=== PATIENT | male | born 1965 | race Caucasian/White ===

== ENCOUNTER 2017-03-02 08:33 | Emergency (ER) | payer MEDICAID, OTHER ==
[~2017-03-02] VITALS: Ht 188 cm; Wt 99.8 kg
--- NOTE | 2017-03-02 09:43 | ED.ADGEN ---
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 Patient states he's been experiencing pain in his upper back, which she describes as a squeezing twisting sensation, he states that at times will radiate into his arms and up into his neck on the right side, he states he's been having "dry heaves" sometimes with this pain, and also feels some shortness of breath with the pain is intense. He states that she been essentially constant for the past 5-6 days. 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 He denies any fall, or direct injury to his back. He states he's also been having cramping sensations in his hands and his legs. He denies any drugs or alcohol, any recent travel or surgery, states he used ibuprofen for pain without relief, last use ibuprofen last night. Denies any focal weakness, states he sometimes feels as though he has some numbness and tingling in his upper arms, but none presently. No changes in bowel or bladder control, no vision changes, no headache, no central neck pain. No pain in his lower back, no abdominal pain, no chest pain. No vomiting or diarrhea, no pain with urination hematuria or other complaints. Denies similar symptoms previously. Review of Systems Review of Systems Constitutional: Denies fever or chills. [] Eyes: Denies change in visual acuity. [] HENT: Denies nasal congestion or sore throat. [] Respiratory: Denies cough or shortness of breath. [] Cardiovascular: Denies chest pain or edema. [] GI: Denies abdominal pain, nausea, vomiting, bloody stools or diarrhea. [] : Denies dysuria. [] Musculoskeletal: Mid thoracic back pain, radiating up into the right neck and shoulder. Cramps in his arms and legs. Integument: Denies rash. [] Neurologic: Denies headache, focal weakness or sensory changes. [] Endocrine: Denies polyuria or polydipsia. [] Lymphatic: Denies swollen glands. [] Psychiatric: Denies depression or anxiety. [] Current Medications Current Medications Current Medications Medications (Trade) Dose Ordered Sig/Diann Start Time Stop Time Status Last Admin Dose Admin Diazepam (Valium) 5 mg 1X ONCE 03/02/17 09:45 03/02/17 09:46 DC 03/02/17 10:44 5 MG Naproxen (Naprosyn) 250 mg 1X ONCE 03/02/17 09:45 03/02/17 09:46 DC 03/02/17 10:43 250 MG Allergies Allergies Allergies Coded Allergies Type Severity Reaction Last Updated Verified loratadine Allergy Severe Shortness of Air 10/08/13 Yes Physical Exam Physical Exam Constitutional: Well developed, well nourished, no acute distress, non-toxic appearance. [] HENT: Normocephalic, atraumatic, bilateral external ears normal, oropharynx moist, no oral exudates, nose normal. [] Eyes: PERRLA, EOMI, conjunctiva normal, no discharge. [] Neck: Normal range of motion, no tenderness, supple, no stridor. [] Cardiovascular:Heart rate regular rhythm, no murmur, S1, S2, rubs or gallops. Patient with a chest wall crepitus or tenderness. Patient with palpable tenderness palpation in the left paraspinal thoracic region, no midline tenderness or deformities, patient describes pain as radiating up also located in the right trapezius region extending into the paraspinal muscles of the neck , but is no midline tenderness there either. Specimens or deformities. [] Lungs & Thorax: Bilateral breath sounds clear to auscultation , no wheezing, rhonchi, rales. No chest wall crepitus. [] Abdomen: Bowel sounds normal, soft, no tenderness, no masses, no pulsatile masses. [] Skin: Warm, dry, no erythema, no rash. [] Back: No midline tenderness, no step-offs or deformities, left-sided thoracic paraspinal tenderness palpation as stated, no CVA tenderness. [] Extremities: No tenderness, no cyanosis, no clubbing, ROM intact, no edema. [] Neurologic: Alert and oriented X 3, normal motor function, normal sensory function, no focal deficits noted. [Patient with normal strength, and sensation in his upper and lower extremities. States he has expressed paresthesias but is expressing not currently.] Psychologic: Affect normal, judgement normal, mood normal. [] Current Patient Data Vital Signs Vital Signs Date Time Temp Pulse Resp B/P Pulse Ox O2 Delivery O2 Flow Rate FiO2 03/02/17 11:10 70 14 126/77 95 Room Air 03/02/17 09:17 97.5 97.5 Lab Values Laboratory Tests Test 03/02/17 09:45 White Blood Count 6.7x10^3/uL (4.0-11.0) Red Blood Count 5.56x10^6/uL (4.30-5.70) Hemoglobin 17.0g/dL (13.0-17.5) Hematocrit 49.8% (39.0-53.0) Mean Corpuscular Volume 90fL (79-100) Mean Corpuscular Hemoglobin 31pg (25-35) Mean Corpuscular Hemoglobin Concent 34g/dL (31-37) Red Cell Distribution Width 16.1% (11.5-14.5) H Platelet Count 185x10^3/uL (140-400) Neutrophils (%) (Auto) 68% (31-73) Lymphocytes (%) (Auto) 17% (24-48) L Monocytes (%) (Auto) 13% (0-9) H Eosinophils (%) (Auto) 1% (0-3) Basophils (%) (Auto) 1% (0-3) Neutrophils # (Auto) 4.5x10^3uL (1.8-7.7) Lymphocytes # (Auto) 1.1x10^3/uL (1.0-4.8) Monocytes # (Auto) 0.9x10^3/uL (0.0-1.1) Eosinophils # (Auto) 0.1x10^3/uL (0.0-0.7) Basophils # (Auto) 0.0x10^3/uL (0.0-0.2) Sodium Level 139mmol/L (136-145) Potassium Level 4.2mmol/L (3.5-5.1) Chloride Level 101mmol/L (98-107) Carbon Dioxide Level 29mmol/L (21-32) Anion Gap 9 (6-14) Blood Urea Nitrogen 12mg/dL (8-26) Creatinine 1.0mg/dL (0.7-1.3) Estimated GFR (Cockcroft-Gault) 79.4 Glucose Level 98mg/dL (70-99) Calcium Level 9.1mg/dL (8.5-10.1) Magnesium Level 2.3mg/dL (1.8-2.4) Troponin I Quantitative < 0.017ng/mL (0.000-0.055) Laboratory Tests 03/02/17 09:45 Laboratory Tests 03/02/17 09:45 EKG EKG EC: Sinus rhythm, heart rate 70 beats/minute, left axis deviation noted, QTc of 413, MO 1:30, QRS of 80, no ST elevations or depressions, abnormal ECG, does not meet STEMI criteria. As interpreted by me. Radiology/Procedures Radiology/Procedures [] [place] [id number] IMAGING REPORT Signed PATIENT: INGRID PEGUERO ACCOUNT: [id number] : 1965 LOCATION: ER AGE: 51 SEX: M EXAM STATUS: REG ER ORD. PHYSICIAN: NAN OCHOA DO REASON: back pain/SOB PROCEDURE: PORTABLE CHEST 1V Exam: AP portable chest. History: Back pain, shortness of breath. Comparison: 04/20/2014. Findings: The heart and mediastinal structures are within normal limits for size. Lungs are without infiltrate. No pneumothorax or pleural effusion is appreciated. Impression: 1. No acute cardiopulmonary process. DICTATED and SIGNED BY: TISHA BENNETT MD DATE: 03/02/171125 CC: NAN OCHOA DO; NO PCP ~ Impressions: [address] [id number] IMAGING REPORT Signed PATIENT: INGRID PEGUERO ACCOUNT: [id number] : 1965 LOCATION: ER AGE: 51 SEX: M EXAM STATUS: REG ER ORD. PHYSICIAN: NAN OCHOA DO REASON: back pain/SOB PROCEDURE: THORACIC SPINE 3V Thoracic spine, 3 views, 03/02/2017: History: Back pain No fracture or destructive bony lesion is identified. There are moderate scattered marginal spurs. The paraspinous soft tissues are unremarkable. IMPRESSION: 1. Moderate marginal spurring. 2. No acute thoracic spine abnormality is detected. DICTATED and SIGNED BY: VIDA HAYDEN MD DATE: 03/02/17 1121 CC: NAN OCHOA DO; NO PCP ~ Course & Med Decision Making Course & Med Decision Making Pertinent Labs and Imaging studies reviewed. (See chart for details) Patient received Valium in the emergency department, and naproxen, as pain and examination most consistent with musculoskeletal etiology. Due to his multiple complaints, laboratory studies and imaging were performed. Laboratory studies and imaging does not reveal any evidence acutely concerning findings. On reevaluation, patient states his pain is now down to a 4 out of 10, and he is able to move his arms which were comfortably. He still does have some pain, but denies any paresthesias or other concerning symptoms. I did discuss with patient concerning symptoms that prompt return, importance of follow-up with a primary care provider, for general medical care, and also follow-up with Dr. Toney of neurosurgery if he continues to have these type of back symptoms. We did discuss also concerning symptoms that would prompt return to the ED for additional evaluation. Patient discharged with prescription for naproxen, Flexeril, clear and detailed return and follow-up instructions as stated. Patient ambulating without difficulty upon exiting the emergency department with family. Dragon Disclaimer Dragon Disclaimer This electronic medical record was generated, in whole or in part, using a voice recognition dictation system. Departure Impression: Primary Impression: Back pain Disposition: HOME, SELF-CARE Condition: IMPROVED Scripts Naproxen 250 Mg [id number] Mg PO BID PRN PAIN #10 Prov:NAN OCHOA DO 03/02/17 Cyclobenzaprine Hcl 10 Mg [id number] Mg PO TID PRN PAIN #12 TAB Prov:NAN OCHOA DO 03/02/17 NAN OCHOA DO Mar 02, 2017 09:43
[2017-03-02] MEDS ORDERED: NAPROXEN 250 MG TABLET PO ONE (09:45)
[2017-03-02] MEDS ORDERED: DIAZEPAM 10 MG/2 ML DISP.SYRIN. IV ONE (09:45)
--- NOTE | 2017-03-02 10:10 | EKG ---
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
[2017-03-02 10:17] LABS: BASO % 1 % (0-3); EOS % 1 % (0-3); HEMATOCRIT 49.8 % (39.0-53.0); LYMPH # 1.1 x10^3/uL (1.0-4.8); LYMPH % 17 % (24-48); MEAN CORPUSCULAR HEMOGLOBIN 31 pg (25-35); MEAN CORPUSCULAR HGB CONC 34 g/dL (31-37); MEAN CORPUSCULAR VOLUME 90 fL (79-100); MONO % 13 % (0-9); NEUT % 68 % (31-73); PLATELET COUNT 185 x10^3/uL (140-400); RED BLOOD COUNT 5.56 x10^6/uL (4.30-5.70); RED CELL DISTRIBUTION WIDTH 16.1 % (11.5-14.5); WHITE BLOOD COUNT 6.7 x10^3/uL (4.0-11.0)
[2017-03-02 10:21] LABS: CALCIUM 9.1 mg/dL (8.5-10.1); GFR 79.4; MAGNESIUM 2.3 mg/dL (1.8-2.4); POTASSIUM 4.2 mmol/L (3.5-5.1)
--- NOTE | 2017-03-02 10:40 | ACF ---
Admit Criteria Forms Admit Criteria Forms Admit Criteria Forms BACK PAIN Clinical Indications for Admission to Inpatient Care (Place 'X' for any and all applicable criteria): Admission is indicated for ANY ONE of the following (1)(2)(3)(4)(5)(6): [X]I. Inpatient admission required rather than observation care (Also use Back Pain: Observation Care as appropriate) because of ANY ONE of the following [ ]a) Severe pain requiring acute inpatient management [ ]b) Immediate inpatient surgery [X]c) Other condition, treatment or monitoring requiring inpatient admission [ ]II. Spine fracture with significant damage or threat of damage to vertebral column or spinal cord [ ]III. Progressive or severe neurologic deficit [ ]IV. Suspected spinal infection (e.g., epidural abscess, vertebral osteomyelitis)(10) [ ]V. Suspected cause requires inpatient treatment (eg, aortic dissection) [ ]. Cauda equina syndrome as indicated by ANY ONE of the following (9): [ ]a) Bowel dysfunction [ ]b) Bladder dysfunction [ ]c) Saddle anesthesia [ ]d) Neurologic abnormality suggesting cauda equina impingement Extended stay beyond goal length of stay may be needed for (3)(25): [ ]a) Spinal cord compression from stenosis, disk, or tumor (8)(9) [ ]b) Traumatic or pathologic vertebral fracture (33) [ ]c) Vertebral infection(10) [ ]d) Severe pain that is difficult to control [ ]e) Older patients(65 years or older) The original [employer] content created by [employer] has been revised. The portions of the content which have been revised are identified through the use of italic text or in bold, and [facility] has neither reviewed nor approved the modified material. All other unmodified content is copyright [employer]. Please see references footnoted in the original [employer] edition 2016 ELDON MORALES Mar 02, 2017 10:40
[2017-03-02 11:10] VITALS: BP 126/77
--- NOTE | 2017-03-02 11:26 | RAD ---
Thoracic spine, 3 views, 03/02/2017: History: Back pain No fracture or destructive bony lesion is identified. There are moderate scattered marginal spurs. The paraspinous soft tissues are unremarkable. IMPRESSION: 1. Moderate marginal spurring. 2. No acute thoracic spine abnormality is detected.
--- NOTE | 2017-03-02 11:29 | RAD ---
Exam: AP portable chest. History: Back pain, shortness of breath. Comparison: 04/20/2014. Findings: The heart and mediastinal structures are within normal limits for size. Lungs are without infiltrate. No pneumothorax or pleural effusion is appreciated. Impression: 1. No acute cardiopulmonary process.
[2017-03-02] MEDS ORDERED: CYCL10TA2 PO (11:53)
[2017-03-02] MEDS ORDERED: NAPR250T2 PO (11:53)
== END 2017-03-02 12:00 | disposition home or self-care (01) ==
LOC: ER 08:33
DX: M54.6 Pain in thoracic spine (principal); M54.2 Cervicalgia; M25.511 Pain in right shoulder; J45.909 Unspecified asthma, uncomplicated; M19.90 Unspecified osteoarthritis, unspecified site; F12.10 Cannabis abuse, uncomplicated; F17.210 Nicotine dependence, cigarettes, uncomplicated; Z88.8 Allergy status to other drugs, medicaments and biological substances
CPT/HCPCS: 36415; 71010; 72072; 80048; 83735; 84484; 85027; 93005; 96374; 99285; J3360

== ENCOUNTER 2018-08-31 20:26 | Emergency (ER) | payer SELFPAY ==
[~2018-08-31] VITALS: Ht 188 cm; Wt 83.9 kg
[~2018-08-31 20:26] MED LIST: CYCL10TA2 PO; NAPR250T6 PO
--- NOTE | 2018-08-31 21:04 | PHYS DOC ---
Past Medical History Past Medical History: Arthritis, Bronchitis Past Surgical History: Other Additional Past Surgical Histo: LEFT EARDRUM Alcohol Use: Sober Drug Use: Marijuana Adult General Chief Complaint Chief Complaint: ANXIETY/PANIC ATTACK HPI HPI 53-year-old male presents for evaluation of depression, anxiety, and suicidal ideation. Patient reports he has struggled with these symptoms since around head. He states months ago when he was living in [facility], he was inpatient for a couple weeks at a facility, they placed him on several psychiatric medications that seemed to help. He states he is recently relocated to [place] and has no follow-up. He has been out of his psychiatric medications for the last 2 weeks at least. He had a prescription for hydroxyzine and Wellbutrin and states there was another but he is unsure what it is. He reports he is feeling suicidal tonight, has a plan and would hang himself. States he has had suicide attempts in the past. Review of Systems Review of Systems Constitutional: Denies fever or chills [] Eyes: Denies change in visual acuity, redness, or eye pain [] HENT: Denies nasal congestion or sore throat [] Respiratory: Denies cough or shortness of breath [] Cardiovascular: No additional information not addressed in HPI [] GI: Denies abdominal pain, nausea, vomiting, bloody stools or diarrhea [] : Denies dysuria or hematuria [] Musculoskeletal: Denies back pain or joint pain [] Integument: Denies rash or skin lesions [] N All other systems were reviewed and found to be within normal limits, except as documented in this note. Current Medications Current Medications Current Medications Medications (Trade) Dose Ordered Sig/Diann Start Time Stop Time Status Last Admin Dose Admin Ibuprofen (Motrin) 600 mg 1X ONCE 08/31/18 22:45 08/31/18 22:46 DC 08/31/18 22:59 600 MG Lorazepam (Ativan) 1 mg 1X ONCE 08/31/18 21:15 08/31/18 21:16 DC 08/31/18 21:15 1 MG Nicotine (Nicoderm Cq 21mg) 1 patch PRN DAILY PRN 08/31/18 21:30 08/31/18 21:39 1 PATCH Allergies Allergies Allergies Coded Allergies Type Severity Reaction Last Updated Verified loratadine Allergy Severe Shortness of Air 10/08/13 Yes Physical Exam Physical Exam Constitutional: Well developed, well nourished, non-toxic appearance. [] HENT: Normocephalic, atraumatic, bilateral external ears normal, oropharynx moist, no oral exudates, nose normal. [] Eyes: PERRLA, EOMI, conjunctiva normal, no discharge. [] Neck: Normal range of motion, no tenderness, supple, no stridor. [] Cardiovascular:Heart rate regular rhythm, no murmur [] Lungs & Thorax: Bilateral breath sounds clear to auscultation [] Skin: Warm, dry, no erythema, no rash. [] Neurologic: Alert and oriented X 3, normal motor function, normal sensory function, no focal deficits noted. [] Psychologic:ANXIOUS, DEPRESSED, SUICIDAL Current Patient Data Vital Signs Vital Signs Date Time Temp Pulse Resp B/P (MAP) Pulse Ox O2 Delivery O2 Flow Rate FiO2 09/01/18 01:18 82 14 114/81 (92) 98 Room Air 08/31/18 20:41 98.8 98.8 Lab Values Laboratory Tests Test 08/31/18 21:25 08/31/18 22:25 White Blood Count 9.4 x10^3/uL (4.0-11.0) Red Blood Count 5.55 x10^6/uL (4.30-5.70) Hemoglobin 17.7 g/dL (13.0-17.5) H Hematocrit 50.5 % (39.0-53.0) Mean Corpuscular Volume 91 fL (79-100) Mean Corpuscular Hemoglobin 32 pg (25-35) Mean Corpuscular Hemoglobin Concent 35 g/dL (31-37) Red Cell Distribution Width 14.4 % (11.5-14.5) Platelet Count 233 x10^3/uL (140-400) Neutrophils (%) (Auto) 71 % (31-73) Lymphocytes (%) (Auto) 17 % (24-48) L Monocytes (%) (Auto) 10 % (0-9) H Eosinophils (%) (Auto) 1 % (0-3) Basophils (%) (Auto) 1 % (0-3) Neutrophils # (Auto) 6.7 x10^3uL (1.8-7.7) Lymphocytes # (Auto) 1.6 x10^3/uL (1.0-4.8) Monocytes # (Auto) 1.0 x10^3/uL (0.0-1.1) Eosinophils # (Auto) 0.1 x10^3/uL (0.0-0.7) Basophils # (Auto) 0.1 x10^3/uL (0.0-0.2) Sodium Level 138 mmol/L (136-145) Potassium Level 4.5 mmol/L (3.5-5.1) Chloride Level 100 mmol/L (98-107) Carbon Dioxide Level 28 mmol/L (21-32) Anion Gap 10 (6-14) Blood Urea Nitrogen 16 mg/dL (8-26) Creatinine 1.3 mg/dL (0.7-1.3) Estimated GFR (Cockcroft-Gault) 58.2 BUN/Creatinine Ratio 12 (6-20) Glucose Level 116 mg/dL (70-99) H Calcium Level 10.0 mg/dL (8.5-10.1) Total Bilirubin 1.1 mg/dL (0.2-1.0) H Aspartate Amino Transferase (AST) 19 U/L (15-37) Alanine Aminotransferase (ALT) 20 U/L (16-63) Alkaline Phosphatase 99 U/L (46-116) Total Protein 8.7 g/dL (6.4-8.2) H Albumin 4.5 g/dL (3.4-5.0) Albumin/Globulin Ratio 1.1 (1.0-1.7) Salicylates Level 4.3 mg/dL (2.8-20.0) Salicylate Last Dose Date Unk Salicylate Last Dose Time Unk Acetaminophen Level < 2 mcg/ml (10-30) L Acetaminophen Last Dose Date Unk Acetaminophen Last Dose Time Unk Ethyl Alcohol Level < 10 mg/dL (0-10) Urine Opiates Screen Neg (NEG) Urine Methadone Screen Neg (NEG) Urine Barbiturates Neg (NEG) Urine Phencyclidine Screen Neg (NEG) Urine Amphetamine/Methamphetamine Neg (NEG) Urine Benzodiazepines Screen Neg (NEG) Urine Cocaine Screen Neg (NEG) Urine Cannabinoids Screen Pos (NEG) Urine Ethyl Alcohol Neg (NEG) Laboratory Tests 08/31/18 21:25 Laboratory Tests 08/31/18 21:25 EKG EKG [] Radiology/Procedures Radiology/Procedures [] Course & Med Decision Making Course & Med Decision Making Pertinent Labs and Imaging studies reviewed. (See chart for details) [0040 Pt was signed out to Dr Steel, awaiting psych placement. Patient has been accepted at [facility] with Dr. Mandujano accepting] Dragon Disclaimer Dragon Disclaimer This electronic medical record was generated, in whole or in part, using a voice recognition dictation system. Departure Departure Impression: Primary Impression: Suicidal ideation Disposition: 65 XFER TO PSYCH HOSP/UNIT Condition: STABLE Referrals: NO PCP (PCP) SORAYA THOMAS APRN Aug 31, 2018 21:04 SANJEEV STEEL Jr. DO Sep 01, 2018 01:22
[2018-08-31] MEDS ORDERED: LORazepam 1 MG TABLET PO ONE (21:15)
[2018-08-31] MEDS ORDERED: NICOTINE 21MG PATCH. TD PRN (21:30)
[2018-08-31 21:33] LABS: BASO # 0.1 x10^3/uL (0.0-0.2); BASO % 1 % (0-3); EOS # 0.1 x10^3/uL (0.0-0.7); EOS % 1 % (0-3); HEMATOCRIT 50.5 % (39.0-53.0); HEMOGLOBIN 17.7 g/dL (13.0-17.5); LYMPH # 1.6 x10^3/uL (1.0-4.8); LYMPH % 17 % (24-48); MEAN CORPUSCULAR HEMOGLOBIN 32 pg (25-35); MEAN CORPUSCULAR HGB CONC 35 g/dL (31-37); MEAN CORPUSCULAR VOLUME 91 fL (79-100); MONO % 10 % (0-9); NEUT # 6.7 x10^3uL (1.8-7.7); NEUT % 71 % (31-73); PLATELET COUNT 233 x10^3/uL (140-400); RED BLOOD COUNT 5.55 x10^6/uL (4.30-5.70); RED CELL DISTRIBUTION WIDTH 14.4 % (11.5-14.5); WHITE BLOOD COUNT 9.4 x10^3/uL (4.0-11.0)
[2018-08-31 21:42] LABS: CREATININE 1.3 mg/dL (0.7-1.3); GFR 58.2; POTASSIUM 4.5 mmol/L (3.5-5.1)
[2018-08-31 21:48] LABS: ACETAMIN < 2 mcg/ml (10-30); ALBUMIN 4.5 g/dL (3.4-5.0); ALBUMIN/GLOBULIN RATIO 1.1 (1.0-1.7); ETHANOL < 10 mg/dL (0-10); SALIC 4.3 mg/dL (2.8-20.0); TOTAL BILIRUBIN 1.1 mg/dL (0.2-1.0); TOTAL PROTEIN 8.7 g/dL (6.4-8.2)
[2018-08-31 22:40] LABS: BARBITURATES NEG (NEG); BENZODIAZEPINES NEG (NEG); CANNABINOIDS POS (NEG); COCAINE NEG (NEG); METHADONE NEG (NEG); OPIATES NEG (NEG); PHENCYCLIDINE NEG (NEG)
[2018-08-31 22:42] LABS: AMPHETAMINE/METHAMPHETAMINE NEG (NEG)
[2018-08-31] MEDS ORDERED: IBUPROFEN 600 MG TABLET. PO ONE (22:45)
[2018-09-01 01:18] VITALS: BP 114/81
[2018-09-01] MEDS ORDERED: LORazepam 1 MG TABLET PO ONE (01:30)
[2018-09-01] MEDS ORDERED: CYCLOBENZAPRINE 10 MG TABLET. PO ONE (01:30)
== END 2018-09-01 02:28 ==
LOC: ER 20:26
DX: R45.851 Suicidal ideations (principal); F41.8 Other specified anxiety disorders; M19.90 Unspecified osteoarthritis, unspecified site; Z88.8 Allergy status to other drugs, medicaments and biological substances
CPT/HCPCS: 36415; 80053; 80307; 80329; 85025; 99285; G0480; G6039; 99284; G0479

== ENCOUNTER 2018-12-12 14:19 | Emergency (ER) | payer OTHER ==
[~2018-12-12] VITALS: Ht 188 cm; Wt 98.9 kg
[2018-12-12] MEDS ORDERED: IBUPROFEN 400 MG TABLET. PO ONE (15:00)
[2018-12-12 15:09] LABS: BASO # 0.1 x10^3/uL (0.0-0.2); BASO % 1 % (0-3); EOS # 0.1 x10^3/uL (0.0-0.7); EOS % 1 % (0-3); HEMATOCRIT 44.4 % (39.0-53.0); HEMOGLOBIN 14.9 g/dL (13.0-17.5); LYMPH # 1.4 x10^3/uL (1.0-4.8); LYMPH % 16 % (24-48); MEAN CORPUSCULAR HEMOGLOBIN 30 pg (25-35); MEAN CORPUSCULAR HGB CONC 34 g/dL (31-37); MEAN CORPUSCULAR VOLUME 88 fL (79-100); MONO # 0.9 x10^3/uL (0.0-1.1); MONO % 10 % (0-9); NEUT # 6.7 x10^3uL (1.8-7.7); NEUT % 73 % (31-73); PLATELET COUNT 203 x10^3/uL (140-400); RED BLOOD COUNT 5.04 x10^6/uL (4.30-5.70); RED CELL DISTRIBUTION WIDTH 14.3 % (11.5-14.5); WHITE BLOOD COUNT 9.2 x10^3/uL (4.0-11.0)
[2018-12-12 15:59] LABS: ALBUMIN 3.6 g/dL (3.4-5.0); ALBUMIN/GLOBULIN RATIO 1.1 (1.0-1.7); CALCIUM 9.1 mg/dL (8.5-10.1); CREATININE 1.4 mg/dL (0.7-1.3); GFR 53.4; POTASSIUM 3.1 mmol/L (3.5-5.1); TOTAL PROTEIN 6.9 g/dL (6.4-8.2)
[2018-12-12 16:25] LABS: BILIRUBIN,URINE NEGATIVE (NEG); CLARITY,URINE CLEAR; COLOR,URINE YELLOW; NITRITE,URINE NEGATIVE (NEG); PH,URINE 6.5; PROTEIN,URINE NEGATIVE (NEG-TRACE)
[2018-12-12 16:30] LABS: BACTERIA,URINE 0 /HPF (0-FEW); HYALINE CASTS, URINE MODERATE /HPF; RBC,URINE OCC /HPF (0-2); SQUAMOUS EPITHELIAL CELL,UR FEW /LPF; WBC,URINE OCC /HPF (0-4)
[2018-12-12] MEDS ORDERED: POTASSIUM CHLORIDE 20 MEQ TABLET.ER. PO ONE (16:30)
[2018-12-12 16:31] LABS: SPERM,URINE PRESENT /HPF
[2018-12-12 16:36] LABS: BARBITURATES NEG (NEG); BENZODIAZEPINES POS (NEG); CANNABINOIDS POS (NEG); COCAINE NEG (NEG); METHADONE NEG (NEG); OPIATES NEG (NEG); PHENCYCLIDINE NEG (NEG)
[2018-12-12 16:37] LABS: AMPHETAMINE/METHAMPHETAMINE POS (NEG)
--- NOTE | 2018-12-12 19:21 | PHYS DOC ---
Past Medical History Past Medical History: Arthritis, Bipolar, Bronchitis, Other Additional Past Medical Histor: manic/depression, schizo tendencies, chronic neck/back pain, TBI, PTSD,ANATOLY (MICKY VILLATORO APRN) Past Surgical History: Other Additional Past Surgical Histo: LEFT EARDRUM (MICKY VILLATORO APRN) Alcohol Use: Sober Drug Use: Marijuana (MICKY VILLATORO APRN) Adult General Chief Complaint Chief Complaint: SUICDAL IDEATION HPI HPI Patient is a 53 year old male who presents with suicidal ideation. The patient is also having manic racing thoughts. The patient had trouble with family members earlier today. He will not discuss specifics but states he was disrespected. He states that they'll is a safe location and that he needs to get there as soon as possible. He is extremely agitated. He states that sometimes he takes his medications and sometimes he doesn't. He does have a past history of traumatic brain injury that exacerbates his issues. (MICKY VILLATORO APRN) Review of Systems Review of Systems Constitutional: Denies fever or chills [] Eyes: Denies change in visual acuity, redness, or eye pain [] HENT: Denies nasal congestion or sore throat [] Respiratory: Denies cough or shortness of breath [] Cardiovascular: No additional information not addressed in HPI [] GI: Denies abdominal pain, nausea, vomiting, bloody stools or diarrhea [] : Denies dysuria or hematuria [] Musculoskeletal: Denies back pain or joint pain [] Integument: Denies rash or skin lesions [] Neurologic: Denies headache, focal weakness or sensory changes [] Endocrine: Denies polyuria or polydipsia [] All other systems were reviewed and found to be within normal limits, except as documented in this note. (MICKY VILLATORO APRN) Current Medications Current Medications Current Medications Medications (Trade) Dose Ordered Sig/Diann Start Time Stop Time Status Last Admin Dose Admin Ibuprofen (Motrin) 800 mg 1X ONCE 12/12/18 15:00 12/12/18 15:01 DC 12/12/18 15:00 800 MG Lorazepam (Ativan) 1 mg PRN Q4HRS PRN 12/12/18 15:00 12/12/18 22:35 DC 12/12/18 20:39 1 MG Potassium Chloride (Klor-Con) 40 meq 1X ONCE 12/12/18 16:30 12/12/18 16:31 DC 12/12/18 16:30 40 MEQ (YOANNA ZIMMERMAN MD) Allergies Allergies Allergies Coded Allergies Type Severity Reaction Last Updated Verified loratadine Allergy Severe Shortness of Air 10/08/13 Yes (YOANNA ZIMMERMAN MD) Physical Exam Physical Exam Constitutional: Well developed, well nourished, no acute distress, non-toxic appearance. [] HENT: Normocephalic, atraumatic, bilateral external ears normal, oropharynx moist, no oral exudates, nose normal. [] Eyes: PERRLA, EOMI, conjunctiva normal, no discharge. [] Neck: Normal range of motion, no tenderness, supple, no stridor. [] Cardiovascular:Heart rate regular rhythm, no murmur [] Lungs & Thorax: Bilateral breath sounds clear to auscultation [] Abdomen: Bowel sounds normal, soft, no tenderness, no masses, no pulsatile masses. [] Skin: Warm, dry, no erythema, no rash. [] Back: No tenderness, no CVA tenderness. [] Extremities: No tenderness, no cyanosis, no clubbing, ROM intact, no edema. [] Neurologic: Alert and oriented X 3, normal motor function, normal sensory function, no focal deficits noted. [] Psychologic: The patient is angry and agitated. His muscles are shaking in anger. He states that he can't get his thoughts in order. His judgment is impaired.[] (MICKY VILLATORO APRN) Current Patient Data Vital Signs Vital Signs Date Time Temp Pulse Resp B/P (MAP) Pulse Ox O2 Delivery O2 Flow Rate FiO2 12/12/18 19:55 98 18 107/85 (92) 97 12/12/18 14:30 97.9 Room Air 97.9 (YOANNA ZIMMERMAN MD) Lab Values Laboratory Tests Test 12/12/18 15:00 12/12/18 15:35 12/12/18 16:17 White Blood Count 9.2 x10^3/uL (4.0-11.0) Red Blood Count 5.04 x10^6/uL (4.30-5.70) Hemoglobin 14.9 g/dL (13.0-17.5) Hematocrit 44.4 % (39.0-53.0) Mean Corpuscular Volume 88 fL (79-100) Mean Corpuscular Hemoglobin 30 pg (25-35) Mean Corpuscular Hemoglobin Concent 34 g/dL (31-37) Red Cell Distribution Width 14.3 % (11.5-14.5) Platelet Count 203 x10^3/uL (140-400) Neutrophils (%) (Auto) 73 % (31-73) Lymphocytes (%) (Auto) 16 % (24-48) L Monocytes (%) (Auto) 10 % (0-9) H Eosinophils (%) (Auto) 1 % (0-3) Basophils (%) (Auto) 1 % (0-3) Neutrophils # (Auto) 6.7 x10^3uL (1.8-7.7) Lymphocytes # (Auto) 1.4 x10^3/uL (1.0-4.8) Monocytes # (Auto) 0.9 x10^3/uL (0.0-1.1) Eosinophils # (Auto) 0.1 x10^3/uL (0.0-0.7) Basophils # (Auto) 0.1 x10^3/uL (0.0-0.2) Sodium Level 140 mmol/L (136-145) Potassium Level 3.1 mmol/L (3.5-5.1) L Chloride Level 105 mmol/L (98-107) Carbon Dioxide Level 27 mmol/L (21-32) Anion Gap 8 (6-14) Blood Urea Nitrogen 17 mg/dL (8-26) Creatinine 1.4 mg/dL (0.7-1.3) H Estimated GFR (Cockcroft-Gault) 53.4 BUN/Creatinine Ratio 12 (6-20) Glucose Level 87 mg/dL (70-99) Calcium Level 9.1 mg/dL (8.5-10.1) Total Bilirubin 1.0 mg/dL (0.2-1.0) Aspartate Amino Transferase (AST) 26 U/L (15-37) Alanine Aminotransferase (ALT) 21 U/L (16-63) Alkaline Phosphatase 98 U/L (46-116) Total Protein 6.9 g/dL (6.4-8.2) Albumin 3.6 g/dL (3.4-5.0) Albumin/Globulin Ratio 1.1 (1.0-1.7) Urine Collection Type Unknown Urine Color Yellow Urine Clarity Clear Urine pH 6.5 Urine Specific [place] 1.025 Urine Protein Negative mg/dL (NEG-TRACE) Urine Glucose (UA) Negative mg/dL (NEG) Urine Ketones (Stick) 15 mg/dL (NEG) Urine Blood Negative (NEG) Urine Nitrite Negative (NEG) Urine Bilirubin Negative (NEG) Urine Urobilinogen Dipstick 1.0 mg/dL (0.2 mg/dL) Urine Leukocyte Esterase Negative (NEG) Urine RBC Occ /HPF (0-2) Urine WBC Occ /HPF (0-4) Urine Squamous Epithelial Cells Few /LPF Urine Bacteria 0 /HPF (0-FEW) Urine Hyaline Casts Moderate /HPF Urine Mucus Marked /LPF Urine Sperm Present /HPF Urine Opiates Screen Neg (NEG) Urine Methadone Screen Neg (NEG) Urine Barbiturates Neg (NEG) Urine Phencyclidine Screen Neg (NEG) Urine Amphetamine/Methamphetamine Pos (NEG) Urine Benzodiazepines Screen Pos (NEG) Urine Cocaine Screen Neg (NEG) Urine Cannabinoids Screen Pos (NEG) Urine Ethyl Alcohol Neg (NEG) Laboratory Tests 12/12/18 15:00 Laboratory Tests 12/12/18 15:35 (YOANNA ZIMMERMAN MD) EKG EKG [] (MICKY VILLATORO APRN) Radiology/Procedures Radiology/Procedures [] (MICKY VILLATORO APRN) Course & Med Decision Making Course & Med Decision Making Pertinent Labs and Imaging studies reviewed. (See chart for details) []Ricardo, with the psychiatric assessment team, has been out to assess the patient. He has been in contact with [facility] for admission of the patient. [facility] has accepted the transfer of this patient. (MICKY VILLATORO APRN) Course & Med Decision Making 12/14/18 @0613: I was not involved in the care of this patient after [address] Zimmerman (YOANNA ZIMMERMAN MD) Dragon Disclaimer Dragon Disclaimer This electronic medical record was generated, in whole or in part, using a voice recognition dictation system. (MICKY VILLATORO APRN) Departure Departure Impression: Primary Impression: Suicidal ideation Additional Impressions: Methamphetamine abuse Marijuana abuse Disposition: 05 TRANSFER OTHER Condition: GOOD Referrals: NO PCP (PCP) Problem Qualifiers MICKY VILLATORO APRN Dec 12, 2018 19:21 YOANNA ZIMMERMAN MD Dec 14, 2018 06:16
[2018-12-12 19:55] VITALS: BP 107/85
[2019-05-09] MEDS ORDERED: NAPR-683 PO (03:39)
[2019-05-25] MEDS ORDERED: DULO20CA PO (15:28)
[2019-05-25] MEDS ORDERED: TAMS0.4C97 PO (15:28)
[2019-05-25] MEDS ORDERED: HYDR25TA PO (15:28)
[2019-05-25] MEDS ORDERED: QUET25TA5 PO (15:28)
[2019-05-25] MEDS ORDERED: LORA0.5T PO (15:28)
[2019-05-25] MEDS ORDERED: QUET200T4 PO (15:28)
[2019-05-29] MEDS ORDERED: DOXY100T PO (11:03)
== END 2018-12-12 22:10 | disposition short-term general hospital (02) ==
LOC: ER 14:19
DX: F12.20 Cannabis dependence, uncomplicated (principal); F15.10 Other stimulant abuse, uncomplicated; R45.851 Suicidal ideations; R45.1 Restlessness and agitation; M19.90 Unspecified osteoarthritis, unspecified site; G89.29 Other chronic pain; F31.9 Bipolar disorder, unspecified; Z88.8 Allergy status to other drugs, medicaments and biological substances
CPT/HCPCS: 36415; 80053; 80307; 81001; 85025; 96374; 99285; J2060

== ENCOUNTER 2019-01-01 13:21 | Emergency (ER) | payer OTHER ==
[~2019-01-01] VITALS: Ht 188 cm; Wt 98.0 kg
[2019-01-01 13:52] VITALS: BP 130/88
[2019-01-01] MEDS ORDERED: HYDR-3164 PO (15:02)
[2019-01-01] MEDS ORDERED: METH4TAB2 PO (15:02)
[2019-01-01] MEDS ORDERED: ORPH100T PO (15:02)
--- NOTE | 2019-01-01 15:02 | PHYS DOC ---
Past Medical History Past Medical History: Anxiety, Arthritis, Bipolar, Bronchitis, COPD, Other Additional Past Medical Histor: manic/depression, schizo tendencies, chronic neck/back pain, TBI, PTSD,ANATOLY Past Surgical History: Other Additional Past Surgical Histo: LEFT EARDRUM Alcohol Use: Occasionally Drug Use: Marijuana Adult General Chief Complaint Chief Complaint: LOWER BACK PAIN OR INJURY [facility] HPI Patient is a 53 year old male who presents with a taking his car out of the snow and ice for about 3 days ago any headache the car out. He shouldn't has been sore on his right side only since then. Patient denies falling or hitting his head or injuries. Patient states he hurts with movements and standing or sitting. Patient states the pain radiates from his lower back down his right leg also. Patient complains of right arm right shoulder and right side of his back radiating down to his back of his right leg. Patient rates his pain a 10 out of 10. Review of Systems Review of Systems Constitutional: Denies fever or chills [] Eyes: Denies change in visual acuity, redness, or eye pain [] HENT: Denies nasal congestion or sore throat [] Respiratory: Denies cough or shortness of breath [] Cardiovascular: No additional information not addressed in HPI [] GI: Denies abdominal pain, nausea, vomiting, bloody stools or diarrhea [] : Denies dysuria or hematuria [] Musculoskeletal: Right sided back pain or right shoulder joint pain [] Integument: Denies rash or skin lesions [] Neurologic: Denies headache, focal weakness or sensory changes [] Endocrine: Denies polyuria or polydipsia [] All other systems were reviewed and found to be within normal limits, except as documented in this note. Allergies Allergies Allergies Coded Allergies Type Severity Reaction Last Updated Verified loratadine Allergy Severe Shortness of Air 01/01/19 Yes Physical Exam Physical Exam Constitutional: Well developed, well nourished, no acute distress, non-toxic appearance. [] HENT: Normocephalic, atraumatic, bilateral external ears normal, oropharynx moist, no oral exudates, nose normal. [] Eyes: PERRLA, EOMI, conjunctiva normal, no discharge. [] Neck: Normal range of motion, no tenderness, supple, no stridor. [] Cardiovascular:Heart rate regular rhythm, no murmur [] Lungs & Thorax: Bilateral breath sounds clear to auscultation [] Abdomen: Bowel sounds normal, soft, no tenderness, no masses, no pulsatile masses. [] Skin: Warm, dry, no erythema, no rash. [] Back: Right sided back tenderness, no CVA tenderness. [] Extremities: No tenderness, no cyanosis, no clubbing, ROM intact, no edema. [] Neurologic: Alert and oriented X 3, normal motor function, normal sensory function, no focal deficits noted. [] Psychologic: Affect normal, judgement normal, mood normal. [] Current Patient Data Vital Signs Vital Signs Date Time Temp Pulse Resp B/P (MAP) Pulse Ox O2 Delivery O2 Flow Rate FiO2 01/01/19 13:52 97.7 94 18 130/88 (102) 97 Room Air 97.7 EKG EKG [] Radiology/Procedures Radiology/Procedures [] Course & Med Decision Making Course & Med Decision Making Patient is a 53 year old male who presents with a taking his car out of the snow and ice for about 3 days ago any headache the car out. He shouldn't has been sore on his right side only since then. Patient denies falling or hitting his head or injuries. Patient states he hurts with movements and standing or sitting. Patient states the pain radiates from his lower back down his right leg also. Patient complains of right arm right shoulder and right side of his back radiating down to his back of his right leg. Patient rates his pain a 10 out of 10. Alert and oriented. Ambulatory but slow. Patient did drive himself to the hospital. Vital signs within normal limits. Patient has tenderness to right upper mid and lower back. Patient has range of motion of all joints but is very painful. Patient likely has muscle strains and sciatica. Patient is told he needs to follow-up with his primary care provider. Patient is given a prescription for a muscle relaxer, pain medication. Dragon Disclaimer Dragon Disclaimer This electronic medical record was generated, in whole or in part, using a voice recognition dictation system. Departure Departure Impression: Primary Impression: Back pain Additional Impression: Muscle strain Disposition: HOME, SELF-CARE Condition: STABLE Referrals: NO PCP (PCP) Patient Instructions: Muscle Strain, Sciatica Additional Instructions: FOLLOW UP WITH PRIMARY CARE DOCTOR. TAKE MEDICATION PRESCRIBED. Scripts Methylprednisolone (MEDROL) 4 Mg Tab.ds.pk 1 PKG PO UD, #1 PKG Prov: SANDY EASLEY APRN 01/01/19 Orphenadrine Citrate (ORPHENADRINE CITRATE) 100 Mg Tablet.er 1 TAB PO BID for 10 Days, #20 TAB Prov: SANDY EASLEY APRN 01/01/19 Hydrocodone/Apap 5-325 (NORCO 5-325 TABLET) 1 Each Tablet 1 TAB PO PRN Q6HRS PRN for PAIN, #8 TAB 0 Refills Prov: SANDY EASLEY APRN 01/01/19 Problem Qualifiers Primary Impression: Back pain Back pain location: low back pain Chronicity: unspecified Back pain laterality: right Sciatica presence: with sciatica Sciatica laterality: sciatica of right side Qualified Codes: M54.41 - Lumbago with sciatica, right side SANDY EASLEY APRN Jan 01, 2019 15:02
== END 2019-01-01 15:31 | disposition home or self-care (01) ==
LOC: ER 13:21
DX: S39.012A Strain of muscle, fascia and tendon of lower back, initial encounter (principal); M25.511 Pain in right shoulder; M79.604 Pain in right leg; G89.29 Other chronic pain; F31.9 Bipolar disorder, unspecified; J44.9 Chronic obstructive pulmonary disease, unspecified; X58.XXXA Exposure to other specified factors, initial encounter; Z88.8 Allergy status to other drugs, medicaments and biological substances; Y93.89 Activity, other specified; Y92.89 Other specified places as the place of occurrence of the external cause; Y99.8 Other external cause status
CPT/HCPCS: 99283

== ENCOUNTER 2019-01-26 19:35 | Emergency (ER) | payer OTHER ==
[~2019-01-26] VITALS: Ht 188 cm; Wt 97.5 kg
[~2019-01-26 19:35] MED LIST changes: +HYDR-3164 PO; +METH4TAB2 PO; +ORPH100T PO
[2019-01-26] MEDS ORDERED: IV NORMAL SALINE 1000ML BAG 1,000 ML IV ONE (21:15)
[2019-01-26 22:27] LABS: BASO % 1 % (0-3); EOS # 0.2 x10^3/uL (0.0-0.7); EOS % 2 % (0-3); HEMATOCRIT 47.6 % (39.0-53.0); HEMOGLOBIN 15.9 g/dL (13.0-17.5); LYMPH % 24 % (24-48); MEAN CORPUSCULAR HEMOGLOBIN 29 pg (25-35); MEAN CORPUSCULAR HGB CONC 34 g/dL (31-37); MEAN CORPUSCULAR VOLUME 87 fL (79-100); MONO # 0.9 x10^3/uL (0.0-1.1); MONO % 11 % (0-9); NEUT # 5.1 x10^3uL (1.8-7.7); NEUT % 62 % (31-73); PLATELET COUNT 216 x10^3/uL (140-400); RED BLOOD COUNT 5.47 x10^6/uL (4.30-5.70); RED CELL DISTRIBUTION WIDTH 15.5 % (11.5-14.5); WHITE BLOOD COUNT 8.2 x10^3/uL (4.0-11.0)
[2019-01-26 22:29] LABS: BILIRUBIN,URINE SMALL (NEG); CLARITY,URINE CLEAR; COLOR,URINE YELLOW; NITRITE,URINE NEGATIVE (NEG); PH,URINE 5.5; PROTEIN,URINE NEGATIVE (NEG-TRACE); UROBILINOGEN,URINE 0.2 mg/dL (0.2 mg/dL)
[2019-01-26 22:35] LABS: BACTERIA,URINE 0 /HPF (0-FEW); RBC,URINE 0 /HPF (0-2); SQUAMOUS EPITHELIAL CELL,UR MOD /LPF
[2019-01-26 22:36] LABS: AMORPHOUS SEDIMENT,UR PRESENT /HPF; BARBITURATES NEG (NEG); BENZODIAZEPINES NEG (NEG); CANNABINOIDS POS (NEG); COCAINE NEG (NEG); HYALINE CASTS, URINE MANY /HPF; METHADONE NEG (NEG); OPIATES NEG (NEG); PHENCYCLIDINE NEG (NEG)
[2019-01-26 22:37] LABS: AMPHETAMINE/METHAMPHETAMINE POS (NEG)
[2019-01-26 22:38] LABS: CALCIUM 9.1 mg/dL (8.5-10.1); CREATININE 1.6 mg/dL (0.7-1.3); GFR 45.8; POTASSIUM 3.1 mmol/L (3.5-5.1)
[2019-01-26 22:44] LABS: ALBUMIN 3.6 g/dL (3.4-5.0); ALBUMIN/GLOBULIN RATIO 0.9 (1.0-1.7); TOTAL BILIRUBIN 0.7 mg/dL (0.2-1.0); TOTAL PROTEIN 7.4 g/dL (6.4-8.2)
--- NOTE | 2019-01-26 23:16 | PHYS DOC ---
Past Medical History Past Medical History: Anxiety, Arthritis, Bipolar, Bronchitis, COPD, Other Additional Past Medical Histor: manic/depression, schizo tendencies, chronic neck/back pain, TBI, PTSD,ANATOLY Past Surgical History: Other Additional Past Surgical Histo: LEFT EARDRUM Alcohol Use: Occasionally Drug Use: Marijuana Adult General Chief Complaint Chief Complaint: DEPRESSION HPI HPI Patient is a 53-year-old male who presents with complaint of feeling overwhelmed and depressed. He denies any suicidal or homicidal ideations. He wants to go to [facility] [place]. Patient states there is just too much going on in his life right now to go into at all. Patient does indicate that he has had a total of 3 syncopal episodes in the last 2 weeks and states that he thinks that all of the stress in his life may be contributing. He also complains of chronic back pain that he can't seem to get under control. He states that if he presses on a particular area in his upper back that it will make him pass out. Review of Systems Review of Systems Constitutional: Denies fever or chills [] Respiratory: Denies cough or shortness of breath [] Cardiovascular: No additional information not addressed in HPI [] GI: Denies abdominal pain, nausea, vomiting or diarrhea [] Integument: Denies rash or skin lesions [] Neurologic: Denies headache, focal weakness or sensory changes [] Psychiatric: Admits to depression without, homicidal or suicidal ideations.[] All other systems were reviewed and found to be within normal limits, except as documented in this note. Current Medications Current Medications Current Medications Medications (Trade) Dose Ordered Sig/Diann Start Time Stop Time Status Last Admin Dose Admin Ibuprofen (Motrin) 800 mg 1X ONCE 01/27/19 00:30 01/27/19 00:31 DC 01/27/19 00:18 800 MG Lorazepam (Ativan) 1 mg STK-MED ONCE 01/27/19 00:15 01/27/19 00:16 DC Potassium Chloride (Klor-Con) 40 meq 1X ONCE 01/27/19 00:30 01/27/19 00:31 DC 01/27/19 00:22 40 MEQ Sodium Chloride 1,000 ml @ 1,000 mls/hr 1X ONCE 01/26/19 21:15 01/26/19 22:14 DC 01/26/19 22:13 1,000 MLS/HR Allergies Allergies Allergies Coded Allergies Type Severity Reaction Last Updated Verified loratadine Allergy Severe Shortness of Air 01/01/19 Yes Physical Exam Physical Exam Constitutional: Well developed, well nourished, no acute distress, non-toxic appearance. [] HENT: Normocephalic, atraumatic, bilateral external ears normal, oropharynx moist, no oral exudates, nose normal. [] Eyes: PERRLA, EOMI, conjunctiva normal, no discharge. [] Neck: Normal range of motion, no tenderness, supple, no stridor. [] Cardiovascular: Regular rate and rhythm[] Lungs & Thorax: Bilateral breath sounds clear to auscultation [] Abdomen: Bowel sounds normal, soft, no tenderness. [] Skin: Warm, dry, no erythema, no rash. [] Extremities: No tenderness, no cyanosis, no clubbing, ROM intact, no edema. [] Neurologic: Alert and oriented X 3, no focal deficits noted. [] Psychologic: Flattened affect with depressed mood. [] Current Patient Data Vital Signs Vital Signs Date Time Temp Pulse Resp B/P (MAP) Pulse Ox O2 Delivery O2 Flow Rate FiO2 01/27/19 02:05 85 18 153/92 (112) 99 Room Air 01/26/19 19:40 98.6 98.6 Lab Values Laboratory Tests Test 01/26/19 21:45 01/26/19 22:10 Urine Collection Type Unknown Urine Color Yellow Urine Clarity Clear Urine pH 5.5 Urine Specific [place] 1.020 Urine Protein Negative mg/dL (NEG-TRACE) Urine Glucose (UA) Negative mg/dL (NEG) Urine Ketones (Stick) Trace mg/dL (NEG) Urine Blood Negative (NEG) Urine Nitrite Negative (NEG) Urine Bilirubin Small (NEG) Urine Urobilinogen Dipstick 0.2 mg/dL (0.2 mg/dL) Urine Leukocyte Esterase Negative (NEG) Urine RBC 0 /HPF (0-2) Urine WBC 5-10 /HPF (0-4) Urine Squamous Epithelial Cells Mod /LPF Urine Amorphous Sediment Present /HPF Urine Bacteria 0 /HPF (0-FEW) Urine Hyaline Casts Many /HPF Urine Mucus Marked /LPF Urine Opiates Screen Neg (NEG) Urine Methadone Screen Neg (NEG) Urine Barbiturates Neg (NEG) Urine Phencyclidine Screen Neg (NEG) Urine Amphetamine/Methamphetamine Pos (NEG) Urine Benzodiazepines Screen Neg (NEG) Urine Cocaine Screen Neg (NEG) Urine Cannabinoids Screen Pos (NEG) Urine Ethyl Alcohol Neg (NEG) White Blood Count 8.2 x10^3/uL (4.0-11.0) Red Blood Count 5.47 x10^6/uL (4.30-5.70) Hemoglobin 15.9 g/dL (13.0-17.5) Hematocrit 47.6 % (39.0-53.0) Mean Corpuscular Volume 87 fL (79-100) Mean Corpuscular Hemoglobin 29 pg (25-35) Mean Corpuscular Hemoglobin Concent 34 g/dL (31-37) Red Cell Distribution Width 15.5 % (11.5-14.5) H Platelet Count 216 x10^3/uL (140-400) Neutrophils (%) (Auto) 62 % (31-73) Lymphocytes (%) (Auto) 24 % (24-48) Monocytes (%) (Auto) 11 % (0-9) H Eosinophils (%) (Auto) 2 % (0-3) Basophils (%) (Auto) 1 % (0-3) Neutrophils # (Auto) 5.1 x10^3uL (1.8-7.7) Lymphocytes # (Auto) 2.0 x10^3/uL (1.0-4.8) Monocytes # (Auto) 0.9 x10^3/uL (0.0-1.1) Eosinophils # (Auto) 0.2 x10^3/uL (0.0-0.7) Basophils # (Auto) 0.0 x10^3/uL (0.0-0.2) Sodium Level 140 mmol/L (136-145) Potassium Level 3.1 mmol/L (3.5-5.1) L Chloride Level 103 mmol/L (98-107) Carbon Dioxide Level 27 mmol/L (21-32) Anion Gap 10 (6-14) Blood Urea Nitrogen 33 mg/dL (8-26) H Creatinine 1.6 mg/dL (0.7-1.3) H Estimated GFR (Cockcroft-Gault) 45.8 BUN/Creatinine Ratio 21 (6-20) H Glucose Level 95 mg/dL (70-99) Calcium Level 9.1 mg/dL (8.5-10.1) Magnesium Level 2.0 mg/dL (1.8-2.4) Total Bilirubin 0.7 mg/dL (0.2-1.0) Aspartate Amino Transferase (AST) 21 U/L (15-37) Alanine Aminotransferase (ALT) 16 U/L (16-63) Alkaline Phosphatase 96 U/L (46-116) Troponin I Quantitative 0.020 ng/mL (0.000-0.055) Total Protein 7.4 g/dL (6.4-8.2) Albumin 3.6 g/dL (3.4-5.0) Albumin/Globulin Ratio 0.9 (1.0-1.7) L Ethyl Alcohol Level < 10 mg/dL (0-10) Laboratory Tests 01/26/19 22:10 Laboratory Tests 01/26/19 22:10 EKG EKG [] Interpretation Time: EKG demonstrates normal sinus rhythm with rate of 89. Radiology/Procedures Radiology/Procedures [] Course & Med Decision Making Course & Med Decision Making Pertinent Labs and Imaging studies reviewed. (See chart for details) Patient has been medically cleared and was seen by PAT team. Patient has been accepted at [facility]. Dragon Disclaimer Dragon Disclaimer This electronic medical record was generated, in whole or in part, using a voice recognition dictation system. Departure Departure Impression: Primary Impression: Depression Additional Impression: Chronic back pain Disposition: 02 TRANSFER [facility] Condition: STABLE Referrals: NO PCP (PCP) Problem Qualifiers Primary Impression: Depression Depression Type: unspecified Qualified Codes: F32.9 - Major depressive disorder, single episode, unspecified Additional Impression: Chronic back pain Back pain location: back pain in unspecified location Back pain laterality: unspecified Qualified Codes: M54.9 - Dorsalgia, unspecified; G89.29 - Other chronic pain SANJEEV TERRAZAS Jr. DO Jan 26, 2019 23:16
--- NOTE | 2019-01-27 00:01 | RAD ---
PORTABLE CHEST 1V History: Syncope, right back pain Comparison: March 02, 2017 Findings: 2 AP portable views of the chest is submitted. There is no infiltrate, pleural fluid, pneumothorax. Heart size is stable, within normal limits. Impression: 1. No acute radiographic abnormality is identified. Electronically signed by: Roman López MD (01/26/2019 11:58 PM) [facility]
[2019-01-27] MEDS ORDERED: LORazepam 1 MG TABLET ONE (00:15)
[2019-01-27] MEDS ORDERED: LORazepam 1 MG TABLET PO ONE (00:30)
[2019-01-27] MEDS ORDERED: POTASSIUM CHLORIDE 20 MEQ TABLET.ER. PO ONE (00:30)
[2019-01-27] MEDS ORDERED: IBUPROFEN 400 MG TABLET. PO ONE (00:30)
--- NOTE | 2019-01-27 06:27 | EKG ---
[facility] [address] [place] [address] Test Date: 2019-01-26 Test Time: 21:56:25 Pat Name: INGRID PEGUERO Department: Room: Gender: M Selector Packer: : [id number] Requested By: SANJEEV TERRAZAS Order Number: [id number] Reading MD: Sharath Cameron MD Measurements Intervals [place] Rate: 89 P: 66 VT: 146 QRS: -79 QRSD: 92 T: 0 QT: 372 QTc: 454 Interpretive Statements SINUS RHYTHM ABNORMAL LEFT AXIS DEVIATION LAFB Electronically Signed On 01-27-2019 17:30:24 CDT by Sharath Cameron MD
[2019-01-27 06:36] VITALS: BP 133/91
== END 2019-01-27 07:01 | disposition short-term general hospital (02) ==
LOC: ER 19:35
DX: F32.9 Major depressive disorder, single episode, unspecified (principal); G89.29 Other chronic pain; M54.6 Pain in thoracic spine; R55 Syncope and collapse; J44.9 Chronic obstructive pulmonary disease, unspecified; Z87.820 Personal history of traumatic brain injury; Z88.8 Allergy status to other drugs, medicaments and biological substances
CPT/HCPCS: 36415; 71045; 80053; 80307; 81001; 83735; 84484; 85025; 87086; 93005; 96360; 99285; G0480; J7030

== ENCOUNTER 2019-02-09 04:53 | Inpatient (IN) | payer OTHER ==
[~2019-02-09] VITALS: Ht 188 cm; Wt 99.4 kg
--- NOTE | 2019-02-09 05:08 | PHYS DOC ---
Past Medical History Past Medical History: Anxiety, Arthritis, Bipolar, Bronchitis, COPD, Other Additional Past Medical Histor: manic/depression, schizo tendencies, chronic neck/back pain, TBI, PTSD,ANATOLY Past Surgical History: Other Additional Past Surgical Histo: LEFT EARDRUM Alcohol Use: Occasionally Drug Use: Marijuana Adult General Chief Complaint Chief Complaint: SHORTNESS OF BREATH HPI HPI Patient is a 53-year-old male who presents with complaint of chest pain and shortness of breath. Patient states that shortness of breath is been present for the last several days and is progressively getting worse. He states that he started with chest discomfort that he describes as 100 pound weight sitting on his chest that started yesterday morning at about 8:00. He denies any nausea, vomiting or diaphoresis. He does state that the shortness breath is worsened with exertion. He states he also has pain in his back behind his right shoulder blade. He rates pain at a 7 out of 10. Patient states that nothing improves his symptoms. Review of Systems Review of Systems Constitutional: Denies fever or chills [] Respiratory: Complains of cough and shortness of breath [] Cardiovascular: No additional information not addressed in HPI [] GI: Denies abdominal pain, nausea, vomiting or diarrhea [] Musculoskeletal: Complains of right sided mid to upper back pain [] Integument: Denies rash or skin lesions [] All other systems were reviewed and found to be within normal limits, except as documented in this note. Current Medications Current Medications Current Medications Medications (Trade) Dose Ordered Sig/Diann Start Time Stop Time Status Last Admin Dose Admin Aspirin (Children'S Aspirin) 324 mg 1X ONCE 02/09/19 05:15 02/09/19 05:16 DC 02/09/19 05:13 324 MG Furosemide (Lasix) 60 mg 1X ONCE 02/09/19 05:45 02/09/19 05:46 UNV Morphine Sulfate (Morphine Sulfate) 4 mg STK-MED ONCE 02/09/19 05:35 02/09/19 05:36 DC Nitroglycerin (Nitrostat) 0.4 mg PRN Q5MIN PRN 02/09/19 05:15 02/10/19 05:14 02/09/19 05:37 0.4 MG Ondansetron HCl (Zofran) 4 mg STK-MED ONCE 02/09/19 05:34 02/09/19 05:35 DC Allergies Allergies Allergies Coded Allergies Type Severity Reaction Last Updated Verified loratadine Allergy Severe Shortness of Air 01/01/19 Yes Physical Exam Physical Exam Constitutional: Well developed, well nourished, no acute distress, non-toxic appearance. [] HENT: Normocephalic, atraumatic, bilateral external ears normal, oropharynx moist, no oral exudates, nose normal. [] Eyes: PERRLA, EOMI, conjunctiva normal, no discharge. [] Neck: Normal range of motion, no tenderness, supple, no stridor. [] Cardiovascular: Regular rate and rhythm[] Lungs & Thorax: Fairly good air movement is noted throughout with fine inspiratory wheezes to auscultation [] Abdomen: Bowel sounds normal, soft, no tenderness. [] Skin: Warm, dry, no erythema, no rash. [] Extremities: No cyanosis, no clubbing, ROM intact, with 2+ pitting edema to bilateral lower extremities. [] Neurologic: Alert and oriented X 3, no focal deficits noted. [] Current Patient Data Vital Signs Vital Signs Date Time Temp Pulse Resp B/P (MAP) Pulse Ox O2 Delivery O2 Flow Rate FiO2 02/09/19 05:37 84 136/72 02/09/19 05:36 20 95 Room Air 02/09/19 05:02 98.1 98.1 Lab Values Laboratory Tests Test 02/09/19 05:05 White Blood Count 6.5 x10^3/uL (4.0-11.0) Red Blood Count 4.60 x10^6/uL (4.30-5.70) Hemoglobin 13.6 g/dL (13.0-17.5) Hematocrit 41.1 % (39.0-53.0) Mean Corpuscular Volume 89 fL (79-100) Mean Corpuscular Hemoglobin 30 pg (25-35) Mean Corpuscular Hemoglobin Concent 33 g/dL (31-37) Red Cell Distribution Width 15.8 % (11.5-14.5) H Platelet Count 184 x10^3/uL (140-400) Neutrophils (%) (Auto) 57 % (31-73) Lymphocytes (%) (Auto) 30 % (24-48) Monocytes (%) (Auto) 11 % (0-9) H Eosinophils (%) (Auto) 2 % (0-3) Basophils (%) (Auto) 1 % (0-3) Neutrophils # (Auto) 3.7 x10^3uL (1.8-7.7) Lymphocytes # (Auto) 1.9 x10^3/uL (1.0-4.8) Monocytes # (Auto) 0.7 x10^3/uL (0.0-1.1) Eosinophils # (Auto) 0.1 x10^3/uL (0.0-0.7) Basophils # (Auto) 0.0 x10^3/uL (0.0-0.2) Sodium Level 143 mmol/L (136-145) Potassium Level 3.7 mmol/L (3.5-5.1) Chloride Level 105 mmol/L (98-107) Carbon Dioxide Level 26 mmol/L (21-32) Anion Gap 12 (6-14) Blood Urea Nitrogen 14 mg/dL (8-26) Creatinine 1.1 mg/dL (0.7-1.3) Estimated GFR (Cockcroft-Gault) 70.6 BUN/Creatinine Ratio 13 (6-20) Glucose Level 101 mg/dL (70-99) H Calcium Level 8.4 mg/dL (8.5-10.1) L Magnesium Level 1.9 mg/dL (1.8-2.4) Total Bilirubin 0.3 mg/dL (0.2-1.0) Aspartate Amino Transferase (AST) 15 U/L (15-37) Alanine Aminotransferase (ALT) 16 U/L (16-63) Alkaline Phosphatase 97 U/L (46-116) Troponin I Quantitative < 0.017 ng/mL (0.000-0.055) AY-Mgh-H-Type Natriuretic Peptide 159 pg/mL (0-124) H Total Protein 6.6 g/dL (6.4-8.2) Albumin 3.4 g/dL (3.4-5.0) Albumin/Globulin Ratio 1.1 (1.0-1.7) Laboratory Tests 02/09/19 05:05 Laboratory Tests 02/09/19 05:05 EKG EKG [] Interpretation Time: EKG demonstrates normal sinus rhythm with rate of 77. Radiology/Procedures Radiology/Procedures [] Course & Med Decision Making Course & Med Decision Making Pertinent Labs and Imaging studies reviewed. (See chart for details) [] Dragon Disclaimer Dragon Disclaimer This electronic medical record was generated, in whole or in part, using a voice recognition dictation system. Departure Departure Impression: Primary Impression: Chest pain Additional Impression: Peripheral edema Disposition: 09 ADMITTED INPATIENT Admitting Physician: Mikayla Winston Condition: IMPROVED Referrals: NO PCP (PCP) Problem Qualifiers Primary Impression: Chest pain Chest pain type: unspecified Qualified Codes: R07.9 - Chest pain, unspecified SANJEEV TERRAZAS Jr. DO Feb 09, 2019 05:08
[2019-02-09] MEDS: NITROGLYCERIN SUBLINGUAL 0.4 MG BOTTLE OF 25. SL PRN ×3 (05:13→05:37)
[2019-02-09] MEDS ORDERED: ASPIRIN CHEWABLE 81 MG TABLET. PO ONE (05:15)
[2019-02-09 05:17] LABS: BASO % 1 % (0-3); EOS # 0.1 x10^3/uL (0.0-0.7); EOS % 2 % (0-3); HEMATOCRIT 41.1 % (39.0-53.0); HEMOGLOBIN 13.6 g/dL (13.0-17.5); LYMPH # 1.9 x10^3/uL (1.0-4.8); LYMPH % 30 % (24-48); MEAN CORPUSCULAR HEMOGLOBIN 30 pg (25-35); MEAN CORPUSCULAR HGB CONC 33 g/dL (31-37); MEAN CORPUSCULAR VOLUME 89 fL (79-100); MONO # 0.7 x10^3/uL (0.0-1.1); MONO % 11 % (0-9); NEUT # 3.7 x10^3uL (1.8-7.7); NEUT % 57 % (31-73); PLATELET COUNT 184 x10^3/uL (140-400); RED CELL DISTRIBUTION WIDTH 15.8 % (11.5-14.5); WHITE BLOOD COUNT 6.5 x10^3/uL (4.0-11.0)
[2019-02-09 05:28] LABS: CALCIUM 8.4 mg/dL (8.5-10.1); CREATININE 1.1 mg/dL (0.7-1.3); GFR 70.6; POTASSIUM 3.7 mmol/L (3.5-5.1)
[2019-02-09 05:34] LABS: ALBUMIN 3.4 g/dL (3.4-5.0); ALBUMIN/GLOBULIN RATIO 1.1 (1.0-1.7); MAGNESIUM 1.9 mg/dL (1.8-2.4); TOTAL BILIRUBIN 0.3 mg/dL (0.2-1.0); TOTAL PROTEIN 6.6 g/dL (6.4-8.2)
[2019-02-09] MEDS ORDERED: ONDANSETRON PF 4 MG/2 ML VIAL. ONE (05:34)
[2019-02-09] MEDS ORDERED: MORPHINE SULFATE 4 MG/ML VIAL. ONE (05:35)
[2019-02-09] MEDS ORDERED: ONDANSETRON PF 4 MG/2 ML VIAL. IV ONE (05:45)
[2019-02-09] MEDS ORDERED: MORPHINE SULFATE 4 MG/ML VIAL. IV ONE (05:45)
[2019-02-09] MEDS ORDERED: FUROSEMIDE 40 MG/4 ML VIAL. IVP ONE (06:00)
[2019-02-09] MEDS ORDERED: ONDANSETRON PF 4 MG/2 ML VIAL. IV PRN (06:00)
--- NOTE | 2019-02-09 06:39 | RAD ---
PORTABLE CHEST 1V Clinical History: chest pain Technique: AP view of the chest was obtained at 02/09/2019 5:13 AM. Comparison: None. Findings: The cardiomediastinal silhouette is normal. The pulmonary vasculature is normal. The lungs and pleural margins are clear. Impression: No evidence of an acute cardiopulmonary process. Electronically signed by: Josh Farley III, MD (02/09/2019 6:36 AM) [facility]
--- NOTE | 2019-02-09 06:47 | EKG ---
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
[2019-02-09 07:00] VITALS: BP 132/76
[2019-02-09 08:31] LABS: CHOLESTEROL/HDL RATIO 5.4
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
--- NOTE | 2019-02-09 10:13 | CARD ---
MR#: [id number] Date of Study: 02/09/2019 Ordering Physician: DIANE HUDSON, Referring Physician: AMAN CORTES Tech: Namrata Avery APPROVED REPORT EXAM: Two-dimensional and M-mode echocardiogram with Doppler and color Doppler. Other Information Quality : AverageHR: 53bpm Technically limited study due to COPD INDICATION Chest Pain 2D DIMENSIONS RVDd2.8 (2.9-3.5cm)Left Atrium(2D)3.0 (1.6-4.0cm) IVSd1.1 (0.7-1.1cm)Aortic Root(2D)3.2 (2.0-3.7cm) LVDd5.4 (3.9-5.9cm)LVOT Diameter2.2 (1.8-2.4cm) PWd1.2 (0.7-1.1cm)LVDs3.7 (2.5-4.0cm) FS (%) 31.3 %SV83.4 ml LVEF(%)58.6 (>50%) Aortic Valve AoV Peak Kervin.135.7cm/sAoV VTI30.4cm AO Peak GR.7.4mmHgLVOT Peak Kervin.93.1cm/s LVOT VTI 24.48cmAO Mean GR.4mmHg CLINT (VMAX)1.71iw3MWR (VTI)2.95cm2 Mitral Valve MV E Twzdxhxn84.0cm/sMV DECEL [id number] MV A Cppylnlr81.3cm/sMV TKW37ic E/A Ratio1.6MVA (PHT)4.47cm2 TDI E/Lateral E'7.9E/Medial E'8.3 Pulmonary Valve PV Peak Yvmovkxt835.7cm/sPV Peak Grad.4mmHg Tricuspid Valve TR P. Ycjlxeuf728rb/sRAP DKWWXBBE1waOf TR Peak Gr.77ziQwXRZF09haGp Pulmonary Vein S1 Gocownal36.0cm/sD2 Lvuabsyh43.1cm/s PVa [id number] LEFT VENTRICLE The left ventricle is normal size. There is mild concentric left ventricular hypertrophy. The left ve ntricular systolic function is low normal. The Ejection Fraction is 50-55%. Septal motion suggestive of conduction defect. Otherwise, there is normal LV segmental wall motion. Transmitral Doppler flow p attern is Grade II-pseudonormal filling dynamics. RIGHT VENTRICLE The right ventricle is normal size. There is normal right ventricular wall thickness. The right ventr icular systolic function is normal. ATRIA The left atrium size is normal. The right atrium is borderline dilated. The interatrial septum is int act with no evidence for an atrial septal defect or patent foramen ovale as noted on 2-D or Doppler i maging. AORTIC VALVE The aortic valve is normal in structure and function. Doppler and Color Flow revealed no significant aortic regurgitation. There is no significant aortic valvular stenosis. MITRAL VALVE The mitral valve is normal in structure and function. There is no evidence of mitral valve prolapse. There is no mitral valve stenosis. Doppler and Color-flow revealed trace mitral regurgitation. TRICUSPID VALVE The tricuspid valve is normal in structure and function. Doppler and Color Flow revealed trace tricus pid regurgitation with an estimated PAP of 28 mmHg. There is no tricuspid valve stenosis. PULMONIC VALVE The pulmonic valve is not well visualized. Doppler and Color Flow revealed no pulmonic valvular regur gitation. GREAT VESSELS The aortic root is normal in size. The IVC is dilated and collapses >50% with inspiration. PERICARDIAL EFFUSION There is small left pleural effusion. There is no evidence of significant pericardial effusion. Critical Notification Critical Value: No <Conclusion> The left ventricular systolic function is low normal. The Ejection Fraction is 50-55%. There is small left pleural effusion. Septal motion suggestive of conduction defect. Otherwise, there is normal LV segmental wall motion. Signed by : Sharath Cameron, Electronically Approved : 02/09/2019 10:12:53
[2019-02-09 11:00] VITALS: BP 143/91
[2019-02-09] MEDS: MORPHINE SULFATE 2 MG/ML VIAL. IV PRN ×3 (11:33→19:59)
[2019-02-09] MEDS ORDERED: PANTOPRAZOLE IV PUSH 40 MG VIAL. IVP SCH (11:45)
[2019-02-09] MEDS ORDERED: FAMOTIDINE 20 MG TABLET. PO ONE (12:30)
--- NOTE | 2019-02-09 12:54 | NUR ---
SS following for discharge planning. SS reviewed pt chart. Pt is from home with son and receives services at [facility] for psychiatric needs. RN reported that pt has a past history of suicide attempts. SS contacted PAT team and made referral for assessment and evaluation. Ricardo from the PAT team to come and see pt. SS will continue to follow for discharge planning.
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
[2019-02-09 15:00] VITALS: BP 144/89
--- NOTE | 2019-02-09 15:17 | NUR ---
SS following up with discharge planning. Ricardo from the PAT team contacted SS and reported that pt was discharged from [facility] two weeks ago and is not currently suicidal or reporting depression. Pt has a treatment team at [facility] that he follows up with. golf manager and psychiatrist notified that pt is currently in the hospital. Pt is working to complete SSI application with vocational case manager at [facility]. Ricardo reported that pt will need his Cymbalta and Buspar continued when discharging from the hospital. Pt is to make a medication appointment at [facility] once discharge from the hospital.
[2019-02-09] MEDS: DOXYCYCLINE HYCLATE 100 MG TABLET PO SCH ×2 (15:24→20:01)
[2019-02-09] MEDS: BENZONATATE 100 MG CAPSULE. PO SCH ×2 (15:24→20:00)
[2019-02-09] MEDS: methylPREDNISolone SOD SUCC PF 40 MG/ML VIAL. IV SCH ×2 (15:24→21:29)
[2019-02-09] MEDS ORDERED: LORazepam 0.5 MG TABLET PO PRN (19:15)
[2019-02-09] MEDS ORDERED: DULO30CA2 PO (19:16)
[2019-02-09] MEDS ORDERED: LORA0.5T96 PO (19:16)
[2019-02-09] MEDS ORDERED: BUSP10TA PO (19:16)
[2019-02-09] MEDS ORDERED: HYDR50CA2 PO (19:16)
[2019-02-09 19:48] VITALS: BP 142/90
[2019-02-09] MEDS: hydrOXYzine PAMOATE 25 MG CAPSULE PO SCH (20:00)
[2019-02-09] MEDS: busPIRone 10 MG TABLET. PO SCH (20:00)
--- NOTE | 2019-02-09 20:16 | NUR ---
AT 1930 PT TOLD CATHLEEN ELAINE THAT HE WANTS HIS MEDS AND HIS PAIN MEDS NOW OR HE IS GOING TO SOMEONE ABOVE RN. HE HAS BEEN ASKING FOR MEDS FOR 3 HOURS. TOOK MEEDS BACK TO HIM AND MORPHINE AFTE I DCD ANOTHE PT TO [facility]EN
[2019-02-09] MEDS: IPRATRPIUM/ALBUTEROL 0.5/2.5MG 3 ML NEBU. NEB SCH ×2 (20:31→23:56)
[2019-02-09] MEDS ORDERED: ATORVASTATIN CALCIUM 10 MG TABLET. PO SCH (21:00)
[2019-02-09] MEDS ORDERED: FAMOTIDINE 20 MG TABLET. PO SCH (21:00)
[2019-02-09 22:24] VITALS: BP 149/93
[2019-02-10] MEDS: MORPHINE SULFATE 2 MG/ML VIAL. IV PRN (01:54)
[2019-02-10 02:12] VITALS: BP 136/62
[2019-02-10 07:00] VITALS: BP 149/92
[2019-02-10] MEDS: methylPREDNISolone SOD SUCC PF 40 MG/ML VIAL. IV SCH ×2 (07:06→13:28)
[2019-02-10] MEDS: IPRATRPIUM/ALBUTEROL 0.5/2.5MG 3 ML NEBU. NEB SCH ×2 (07:29→11:43)
[2019-02-10] MEDS: hydrOXYzine PAMOATE 25 MG CAPSULE PO SCH ×2 (08:57→13:27)
[2019-02-10] MEDS: BENZONATATE 100 MG CAPSULE. PO SCH ×2 (08:58→13:27)
[2019-02-10] MEDS: busPIRone 10 MG TABLET. PO SCH (08:58)
[2019-02-10] MEDS: DOXYCYCLINE HYCLATE 100 MG TABLET PO SCH (08:58)
[2019-02-10] MEDS ORDERED: DULoxetine HCL 30 MG CAPSULE.DR PO SCH (09:00)
[2019-02-10] MEDS ORDERED: METHOCARBAMOL 750 MG TABLET PO PRN (10:45)
[2019-02-10] MEDS ORDERED: MELOXICAM 7.5 MG TABLET PO SCH (10:45)
[2019-02-10] MEDS ORDERED: IPRA3AMP29 NEB (10:48)
[2019-02-10] MEDS ORDERED: DOXY100T PO (10:48)
[2019-02-10] MEDS ORDERED: PRED20TA PO (10:48)
[2019-02-10] MEDS ORDERED: ATOR20TA58 PO (10:48)
[2019-02-10] MEDS ORDERED: METH750T2 PO (10:48)
[2019-02-10 11:00] VITALS: BP 154/81
--- NOTE | 2019-02-10 12:15 | PDOC3 ---
Discharge Summary Visit Information Date of Admission: Feb 09, 2019 Date of Discharge: Feb 10, 2019 Admitting Diagnosis: Chest pain Final Diagnosis Patient admitted for cardiac evaluation at the request of the ER His symtpoms were more realted to underlying ostearthritic changes, he has history of Bipolar disorder and anxiety documented but the patietn is compensated, EH does seem to have a lot of stress in his life since he lives with his son and the situation seems o be pretty precarious. Hsi brother was visiting him and provide me with some details regarding the patient s's situation at home. He is on disability and it would seem that his son and his girlfriend have him at his place in order to benefit from his disability income. His brother cannot house him since he has a 3 bedroom home and has 3 children and no space where to accomodate his brother. I provided reassurance and addressed his pain with Mobic and muscle relaxant. He was deemed appropriate for discharge from the cardiac and medical stand point of view. We will try to provide patient with soical services so hopefully he can get situated in a government assisted program. Extensive counseling regarding smoking cessation took place as well. signs and symptoms of alarm were discussed prior to discharge. PE: lungs clear to auscultation with good inspiratory effort cvs s1s2 rr no murmurs. Brief Hospital Course Allergies Allergies Coded Allergies Type Severity Reaction Last Updated Verified loratadine Allergy Severe Shortness of Air 01/01/19 Yes Vital Signs Vital Signs Date Time Temp Pulse Resp B/P (MAP) Pulse Ox O2 Delivery O2 Flow Rate FiO2 02/10/19 11:43 96 Room Air 02/10/19 11:00 98.5 79 18 154/81 (105) 98.5 Lab Results Laboratory Tests Test 02/09/19 05:05 02/09/19 08:45 02/09/19 11:55 White Blood Count 6.5 x10^3/uL (4.0-11.0) Red Blood Count 4.60 x10^6/uL (4.30-5.70) Hemoglobin 13.6 g/dL (13.0-17.5) Hematocrit 41.1 % (39.0-53.0) Mean Corpuscular Volume 89 fL (79-100) Mean Corpuscular Hemoglobin 30 pg (25-35) Mean Corpuscular Hemoglobin Concent 33 g/dL (31-37) Red Cell Distribution Width 15.8 % (11.5-14.5) Platelet Count 184 x10^3/uL (140-400) Neutrophils (%) (Auto) 57 % (31-73) Lymphocytes (%) (Auto) 30 % (24-48) Monocytes (%) (Auto) 11 % (0-9) Eosinophils (%) (Auto) 2 % (0-3) Basophils (%) (Auto) 1 % (0-3) Neutrophils # (Auto) 3.7 x10^3uL (1.8-7.7) Lymphocytes # (Auto) 1.9 x10^3/uL (1.0-4.8) Monocytes # (Auto) 0.7 x10^3/uL (0.0-1.1) Eosinophils # (Auto) 0.1 x10^3/uL (0.0-0.7) Basophils # (Auto) 0.0 x10^3/uL (0.0-0.2) D-Dimer (Liyah) 0.44 ug/mlFEU (0.00-0.50) Sodium Level 143 mmol/L (136-145) Potassium Level 3.7 mmol/L (3.5-5.1) Chloride Level 105 mmol/L (98-107) Carbon Dioxide Level 26 mmol/L (21-32) Anion Gap 12 (6-14) Blood Urea Nitrogen 14 mg/dL (8-26) Creatinine 1.1 mg/dL (0.7-1.3) Estimated GFR (Cockcroft-Gault) 70.6 BUN/Creatinine Ratio 13 (6-20) Glucose Level 101 mg/dL (70-99) Calcium Level 8.4 mg/dL (8.5-10.1) Magnesium Level 1.9 mg/dL (1.8-2.4) Total Bilirubin 0.3 mg/dL (0.2-1.0) Aspartate Amino Transf (AST/SGOT) 15 U/L (15-37) Alanine Aminotransferase (ALT/SGPT) 16 U/L (16-63) Alkaline Phosphatase 97 U/L (46-116) Troponin I Quantitative < 0.017 ng/mL (0.000-0.055) < 0.017 ng/mL (0.000-0.055) < 0.017 ng/mL (0.000-0.055) VK-Esg-A-Type Natriuretic Peptide 159 pg/mL (0-124) Total Protein 6.6 g/dL (6.4-8.2) Albumin 3.4 g/dL (3.4-5.0) Albumin/Globulin Ratio 1.1 (1.0-1.7) Triglycerides Level 270 mg/dL (0-150) Cholesterol Level 179 mg/dL (0-200) LDL Cholesterol, Calculated 92 mg/dL (0-100) VLDL Cholesterol, Calculated 54 mg/dL (0-40) Non-HDL Cholesterol Calculated 146 mg/dL (0-129) HDL Cholesterol 33 mg/dL (40-60) Cholesterol/HDL Ratio 5.4 Brief Hospital Course Chest pain a typical in nature Severe osteoarthritis History of bipolar disorder Tobacco abuse with greater than [id number] history of smoking COPD Discharge Information Condition at Discharge: Improved Follow Up: Weeks Disposition/Orders: D/C to Home Scheduled Atorvastatin Calcium (Atorvastatin Calcium) 20 Mg Tablet, 1 TAB PO DAILY for dyslipidemia, #30 Ref 5 Prescribed by: OSWALDO GAN MD on 02/10/19 1048 Buspirone Hcl (Buspirone Hcl) 10 Mg Tablet, 1 TAB PO BID for depression, #60 Ref 1 (Reported) Entered as Reported by: ONOFRE MALIK on 02/09/191915 Last Taken: Unknown Dose on Unknown Date & Time Last Action: Continued on 02/09/191916 by ONOFRE MALIK Doxycycline Hyclate (Doxycycline Hyclate) 100 Mg Tablet, 100 MG PO BID for Bronchitis for 4 Days, #8 Prescribed by: OSWALDO GAN MD on 02/10/19 1048 Duloxetine Hcl (Cymbalta) 30 Mg Capsule.dr, 1 CAP PO DAILY for depression, #30 Ref 5 (Reported) Entered as Reported by: ONOFRE MALIK on 02/09/191915 Last Taken: Unknown Dose on Unknown Date & Time Last Action: Continued on 02/09/191916 by ONOFRE MALIK Hydroxyzine Pamoate (Hydroxyzine Pamoate) 50 Mg Capsule, 1 CAP PO TID for anxiety, #90 Ref 1 (Reported) Entered as Reported by: ONOFRE MALIK on 02/09/191915 Last Taken: Unknown Dose on Unknown Date & Time Last Action: Converted on 02/09/191916 by ONOFRE MALIK Ipratropium/Albuterol Sulfate (Duoneb 0.5-3(2.5) Mg/3 Ml) 3 Ml Ampul.neb, 3 ML NEB Q6HRS for COPD for 30 Days, #120 Prescribed by: OSWALDO GAN MD on 02/10/19 1048 Prednisone (Prednisone) 20 Mg Tablet, 40 MG PO DAILY for COPD for 3 Days, #6 Prescribed by: OSWALDO GAN MD on 02/10/19 1048 Scheduled PRN Cyclobenzaprine Hcl (Cyclobenzaprine Hcl) 10 Mg Tablet, 10 MG PO TID PRN for PAIN, #12 Prescribed by: NAN OCHOA D.O. on 03/02/17 115 Last Action: HELD on 02/10/191034 by OSWALDO GAN MD Lorazepam (Ativan) 0.5 Mg Tablet, 0.5 MG PO PRN Q8HRS PRN for AGITATION, ( Reported) Entered as Reported by: ONOFRE MALIK on 02/09/191915 Last Taken: Unknown Dose on Unknown Date & Time Last Action: Continued on 02/09/191916 by ONOFRE MALIK Methocarbamol (Methocarbamol) 750 Mg Tablet, 1,500 MG PO Q8H PRN for MUSCLE SPASMS for 30 Days, #90 Prescribed by: OSWALDO GAN MD on 02/10/19 104 Discontinued Medications Hydrocodone/Apap 5-325 (Marion 5-325 Tablet) 1 Each Tablet, 1 TAB PO PRN Q6HRS PRN for PAIN, #8 Ref 0 Prescribed by: SANDY EASLEY APRN on 01/01/19 1502 Last Action: HELD on 02/10/191034 by OSWALDO GAN MD Naproxen (Naproxen) 250 Mg Tablet, 250 MG PO BID PRN for PAIN, #10 Prescribed by: NAN OCHOA D.O. on 03/02/17 115 Last Action: HELD on 02/10/191034 by MD ELVIA VENTURA HECTOR M MD Feb 10, 2019 12:15
--- NOTE | 2019-02-10 14:50 | NUR ---
Discharge Note: [facility] [address] [place] Discharge instructions and discharge home medications reviewed with Patient and a copy given. All questions have been answered and understanding verbalized. The following instructions and handouts were given: cholesterol info, diet info, chest pain info, discharge instructions, new medication info, smoking cessation info. Discontinued lines and drains: Peripheral IV intact. Patient discharged to Home or Self Care with Self via [facility] at 1442. Patient was a little anxious at time of discharge but stated he would be ok that he wanted to leave & go by his son's house then he would call a friend to stay with marlyn. Patient stated he would follow up with [facility]. Addendum: 02/10/19 at 1457 by MARTÍNEZ SHAH RN Patient left in his own private vehicle.
== END 2019-02-10 14:42 | disposition home or self-care (01) | DRG 206 ==
LOC: ER 04:53 → 2 NORTH 05:50
PROVIDERS: ADMIT Internal Medicine; ATTEND Internal Medicine
DX: M94.0 Chondrocostal junction syndrome [Tietze] (principal); E66.9 Obesity, unspecified; E78.1 Pure hyperglyceridemia; F17.210 Nicotine dependence, cigarettes, uncomplicated; F31.9 Bipolar disorder, unspecified; F43.10 Post-traumatic stress disorder, unspecified; J44.9 Chronic obstructive pulmonary disease, unspecified; M19.90 Unspecified osteoarthritis, unspecified site; Z87.820 Personal history of traumatic brain injury; F12.90 Cannabis use, unspecified, uncomplicated; F41.9 Anxiety disorder, unspecified; Z88.8 Allergy status to other drugs, medicaments and biological substances; Z68.28 Body mass index [BMI] 28.0-28.9, adult; Z71.6 Tobacco abuse counseling
CPT/HCPCS: 36415; 71045; 80053; 80061; 83735; 83880; 84484; 85025; 85379; 93005; 93306; 94640; 94760; 96374; 96375; 99406; C9113; J1940; J2270; J2405; J2920; J7620; Q0177; 99285-25

== ENCOUNTER 2019-03-31 03:52 | Inpatient (IN) | payer OTHER ==
[2019-03-31] VITALS (16 sets, daily range): BP systolic 74–163; BP diastolic 50–94
[~2019-03-31] VITALS: Ht 190.5 cm; Wt 99.8 kg
[2019-03-31] MEDS: IV NORMAL SALINE 1000ML BAG 1,000 ML IV SCH ×6 (01:40→15:59)
[~2019-03-31 03:52] MED LIST changes: +ATOR20TA58 PO; +BUSP10TA PO; +DOXY100T PO; +DULO30CA2 PO; +HYDR50CA2 PO; +IPRA3AMP29 NEB; +LORA0.5T96 PO; +METH750T2 PO; +PRED20TA PO
[2019-03-31 04:13] LABS: BASO # 0.1 x10^3/uL (0.0-0.2); BASO % 0 % (0-3); EOS # 0.2 x10^3/uL (0.0-0.7); EOS % 1 % (0-3); HEMATOCRIT 44.1 % (39.0-53.0); HEMOGLOBIN 14.7 g/dL (13.0-17.5); LYMPH # 3.3 x10^3/uL (1.0-4.8); LYMPH % 20 % (24-48); MEAN CORPUSCULAR HEMOGLOBIN 30 pg (25-35); MEAN CORPUSCULAR HGB CONC 33 g/dL (31-37); MEAN CORPUSCULAR VOLUME 90 fL (79-100); MONO # 1.9 x10^3/uL (0.0-1.1); MONO % 11 % (0-9); NEUT # 11.3 x10^3uL (1.8-7.7); NEUT % 68 % (31-73); PLATELET COUNT 256 x10^3/uL (140-400); RED CELL DISTRIBUTION WIDTH 15.3 % (11.5-14.5); WHITE BLOOD COUNT 16.7 x10^3/uL (4.0-11.0)
[2019-03-31 04:23] LABS: CALCIUM 9.1 mg/dL (8.5-10.1); CREATININE 1.7 mg/dL (0.7-1.3); GFR 42.7; POTASSIUM 3.4 mmol/L (3.5-5.1)
[2019-03-31] MEDS ORDERED: ZIPRASIDONE IM 20 MG VIAL. IM ONE ×2 (04:24→05:00)
[2019-03-31 04:28] LABS: ACETAMIN < 2 mcg/ml (10-30); ALBUMIN/GLOBULIN RATIO 1.2 (1.0-1.7); MAGNESIUM 2.1 mg/dL (1.8-2.4); TOTAL PROTEIN 7.3 g/dL (6.4-8.2)
[2019-03-31 04:52] LABS: % EOS 2 % (0-5); % LYMPHS 24 % (24-48); % MONOS 14 % (0-10); % SEGS 60 % (35-66); PLT ESTIMATE ADEQUATE (ADEQUATE)
--- NOTE | 2019-03-31 04:55 | RAD ---
AP chest. HISTORY: Altered mental status AP view was taken of the chest. Lungs are clear. Heart is normal in size without heart failure. There is no pleural effusion. IMPRESSION: 1. No acute chest disease. Electronically signed by: Collins Henry MD (03/31/2019 4:53 AM) [id number]
[2019-03-31] MEDS ORDERED: HALOPERIDOL LACTATE 5 MG/ML VIAL. IVP ONE (05:00)
[2019-03-31] MEDS ORDERED: IV NORMAL SALINE 1000ML BAG 1,000 ML IV ONE ×3 (05:00→07:00)
--- NOTE | 2019-03-31 05:13 | PHYS DOC ---
Past Medical History Past Medical History: Anxiety, Arthritis, Bipolar, Bronchitis, COPD, Depression, Other Additional Past Medical Histor: manic/depression, schizo tendencies, chronic neck/back pain, TBI, PTSD,ANATOLY Past Surgical History: Other Additional Past Surgical Histo: LEFT EARDRUM Alcohol Use: Occasionally Drug Use: Marijuana, Phencyclidine Adult General Chief Complaint Chief Complaint: ALTERED MENTAL STATUS HPI HPI Patient is a 53-year-old male who presents via EMS after reportedly being found out in the middle of the road screaming. EMS reports that patient is very confused and appears to be intoxicated. Additional history is limited as patient is very poor historian, unable to answer questions.[] Review of Systems Review of Systems Constitutional: No reported fever[] Respiratory: Denies shortness of breath [] Cardiovascular: No additional information not addressed in HPI [] GI: No report of vomiting or diarrhea [] Neurologic: Positive mental status changes [] Unable to fully assess review of systems as patient appears to be under the influence of an illicit substance. Current Medications Current Medications Current Medications Medications (Trade) Dose Ordered Sig/Diann Start Time Stop Time Status Last Admin Dose Admin Acetaminophen/ Hydrocodone Bitart (Lortab 7.5/325) 1 tab 1X ONCE 03/31/19 06:00 03/31/19 06:01 Cancel Haloperidol Lactate (Haldol Inj) 5 mg 1X ONCE 03/31/19 05:00 03/31/19 05:01 DC 03/31/19 04:49 5 MG Lorazepam (Ativan Inj) 2 mg 1X ONCE 03/31/19 05:00 03/31/19 05:01 DC 03/31/19 04:49 2 MG Sodium Chloride 1,000 ml @ 1,000 mls/hr 1X ONCE 03/31/19 05:00 03/31/19 05:59 03/31/19 04:49 1,000 MLS/HR Ziprasidone (Geodon Im) 20 mg 1X ONCE 03/31/19 05:00 03/31/19 05:01 DC 03/31/19 04:48 20 MG Allergies Allergies Allergies Coded Allergies Type Severity Reaction Last Updated Verified loratadine Allergy Severe Shortness of Air 01/01/19 Yes Physical Exam Physical Exam Constitutional: Well developed, well nourished, anxious, appears intoxicated. [] HENT: Normocephalic, atraumatic, bilateral external ears normal, oropharynx dry, no oral exudates, nose normal. [] Eyes: PERRLA, EOMI, conjunctiva normal, no discharge. [] Neck: Normal range of motion, no tenderness, supple, no stridor. [] Cardiovascular: Mildly tachycardic rate with regular rhythm[] Lungs & Thorax: Bilateral breath sounds clear to auscultation [] Abdomen: Bowel sounds normal, soft, no tenderness. [] Skin: Warm, dry, no erythema, no rash. [] Extremities: No tenderness, no cyanosis, no clubbing, ROM intact. [] Neurologic: Awake and alert, confused, no focal deficits noted. [] Current Patient Data Vital Signs Vital Signs Date Time Temp Pulse Resp B/P (MAP) Pulse Ox O2 Delivery O2 Flow Rate FiO2 03/31/19 03:52 97.4 129 16 143/94 (110) 100 Room Air 97.4 Lab Values Laboratory Tests Test 03/31/19 04:00 White Blood Count 16.7 x10^3/uL (4.0-11.0) H Red Blood Count 4.90 x10^6/uL (4.30-5.70) Hemoglobin 14.7 g/dL (13.0-17.5) Hematocrit 44.1 % (39.0-53.0) Mean Corpuscular Volume 90 fL (79-100) Mean Corpuscular Hemoglobin 30 pg (25-35) Mean Corpuscular Hemoglobin Concent 33 g/dL (31-37) Red Cell Distribution Width 15.3 % (11.5-14.5) H Platelet Count 256 x10^3/uL (140-400) Neutrophils (%) (Auto) 68 % (31-73) Lymphocytes (%) (Auto) 20 % (24-48) L Monocytes (%) (Auto) 11 % (0-9) H Eosinophils (%) (Auto) 1 % (0-3) Basophils (%) (Auto) 0 % (0-3) Neutrophils # (Auto) 11.3 x10^3uL (1.8-7.7) H Lymphocytes # (Auto) 3.3 x10^3/uL (1.0-4.8) Monocytes # (Auto) 1.9 x10^3/uL (0.0-1.1) H Eosinophils # (Auto) 0.2 x10^3/uL (0.0-0.7) Basophils # (Auto) 0.1 x10^3/uL (0.0-0.2) Segmented Neutrophils % 60 % (35-66) Lymphocytes % 24 % (24-48) Monocytes % 14 % (0-10) H Eosinophils % 2 % (0-5) Platelet Estimate Adequate (ADEQUATE) Sodium Level 142 mmol/L (136-145) Potassium Level 3.4 mmol/L (3.5-5.1) L Chloride Level 103 mmol/L (98-107) Carbon Dioxide Level 20 mmol/L (21-32) L Anion Gap 19 (6-14) H Blood Urea Nitrogen 19 mg/dL (8-26) Creatinine 1.7 mg/dL (0.7-1.3) H Estimated GFR (Cockcroft-Gault) 42.7 BUN/Creatinine Ratio 11 (6-20) Glucose Level 66 mg/dL (70-99) L Calcium Level 9.1 mg/dL (8.5-10.1) Magnesium Level 2.1 mg/dL (1.8-2.4) Total Bilirubin 1.0 mg/dL (0.2-1.0) Aspartate Amino Transferase (AST) 35 U/L (15-37) Alanine Aminotransferase (ALT) 21 U/L (16-63) Alkaline Phosphatase 107 U/L (46-116) Total Protein 7.3 g/dL (6.4-8.2) Albumin 4.0 g/dL (3.4-5.0) Albumin/Globulin Ratio 1.2 (1.0-1.7) Salicylates Level 4.0 mg/dL (2.8-20.0) Salicylate Last Dose Date Unk Salicylate Last Dose Time Unk Acetaminophen Level < 2 mcg/ml (10-30) L Acetaminophen Last Dose Date Unk Acetaminophen Last Dose Time Unk Laboratory Tests 03/31/19 04:00 Laboratory Tests 03/31/19 04:00 EKG EKG [] Interpretation Time: EKG demonstrates sinus tachycardia with rate of 109. Radiology/Procedures Radiology/Procedures [] Impressions: PROCEDURE: PORTABLE CHEST 1V AP chest. HISTORY: Altered mental status AP view was taken of the chest. Lungs are clear. Heart is normal in size without heart failure. There is no pleural effusion. IMPRESSION: 1. No acute chest disease. Electronically signed by: Collins Henry MD (03/31/2019 4:53 AM) [facility] Course & Med Decision Making Course & Med Decision Making Pertinent Labs and Imaging studies reviewed. (See chart for details) [] Dragon Disclaimer Dragon Disclaimer This electronic medical record was generated, in whole or in part, using a voice recognition dictation system. Departure Departure Impression: Primary Impression: Altered mental status Additional Impression: Dehydration Disposition: 09 ADMITTED INPATIENT Admitting Physician: Darcy Zuñiga Condition: IMPROVED Referrals: NO PCP (PCP) Problem Qualifiers Primary Impression: Altered mental status Altered mental status type: unspecified Qualified Codes: R41.82 - Altered mental status, unspecified SANJEEV TERRAZAS Jr. DO March 31, 2019 05:13
[2019-03-31] MEDS ORDERED: AMOX1TAB61 PO (05:34)
[2019-03-31] MEDS ORDERED: HYDR5SUS PO (05:34)
[2019-03-31] MEDS ORDERED: HYDROcodone/APAP 7.5/325MG 1 TAB TABLET PO ONE (06:00)
--- NOTE | 2019-03-31 06:25 | EKG ---
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
[2019-03-31] MEDS ORDERED: PIPERACILLIN/TAZOBACTAM 4.5 GM in IV NORMAL SALINE 100ML 100 ML IV ONE (07:30)
[2019-03-31] MEDS ORDERED: VANCOMYCIN 2 GM in IV NORMAL SALINE 500ML BAG 500 ML IV ONE (07:30)
[2019-03-31 07:51] LABS: BILIRUBIN,URINE NEGATIVE (NEG); CLARITY,URINE CLEAR; COLOR,URINE YELLOW; NITRITE,URINE NEGATIVE (NEG); PH,URINE 5.5; PROTEIN,URINE NEGATIVE (NEG-TRACE); UROBILINOGEN,URINE 0.2 mg/dL (0.2 mg/dL)
[2019-03-31 07:59] LABS: BARBITURATES NEG (NEG); BENZODIAZEPINES NEG (NEG); CANNABINOIDS POS (NEG); COCAINE NEG (NEG); METHADONE NEG (NEG); OPIATES NEG (NEG); PHENCYCLIDINE NEG (NEG)
[2019-03-31 08:04] LABS: RBC,URINE OCC /HPF (0-2)
[2019-03-31 08:05] LABS: BACTERIA,URINE 0 /HPF (0-FEW); HYALINE CASTS, URINE MODERATE /HPF; SQUAMOUS EPITHELIAL CELL,UR MOD /LPF; WBC,URINE OCC /HPF (0-4)
[2019-03-31 08:09] LABS: AMPHETAMINE/METHAMPHETAMINE POS (NEG)
[2019-03-31] MEDS ORDERED: QUET200T4 PO (13:45)
[2019-03-31] MEDS ORDERED: DIAZ5TAB4 PO (13:45)
[2019-03-31] MEDS ORDERED: DULO60CA6 PO (13:45)
[2019-03-31] MEDS ORDERED: IPRA3AMP29 NEB (13:45)
[2019-03-31] MEDS ORDERED: BUSP15TA PO (13:45)
[2019-03-31] MEDS ORDERED: CYCL10TA2 PO (13:45)
[2019-03-31] MEDS ORDERED: ALBUTEROL SULFATE 2.5 MG/3 ML NEBU. NEB PRN (14:45)
--- NOTE | 2019-03-31 14:48 | PDOC1 ---
History and Physical Date of Admission Date of Admission DATE: 03/31/19 TIME: 14:48 Identification/Chief Complaint Chief Complaint seen in er, transferred to icu ,Patient is a 53-year-old male who presents via EMS after reportedly being found out in the middle of the road screaming. EMS reports that patient is very confused and appears to be intoxicated. was hypotensive earlier Past Medical History Past Medical History Past Medical History Past Medical History: Anxiety, Arthritis, Bipolar, Bronchitis, COPD, Depression, Other Additional Past Medical Histor: manic/depression, schizo tendencies, chronic neck/back pain, TBI, PTSD,ANATOLY Past Surgical History: Other Additional Past Surgical Histo: LEFT EARDRUM Alcohol Use: Occasionally Drug Use: Marijuana, Phencyclidine family hx substance abuse Cardiovascular: No pertinent hx Psych: Addictions Infectious disease: No pertinent hx Family History Family History: Hypertension Social History Smoke: <1 pack per day ALCOHOL: heavy Drugs: Marijuana, Crystal meth Current Problem List Problem List Problems Medical Problems: (1) Acute bronchitis with bronchospasm Status: Acute (2) Altered mental status Status: Acute (3) Dehydration Status: Acute (4) Septic shock Status: Acute Current Medications Current Medications Current Medications Ziprasidone (Geodon Im) 20 mg STK-MED ONCE IM ; Start 03/31/19 at 04:24; Stop 03/31/19 at 04:25; Status DC Sodium Chloride 1,000 ml @ 1,000 mls/hr 1X ONCE IV Last administered on 03/31/19at 04:49; Start 03/31/19 at 05:00; Stop 03/31/19 at 05:59; Status DC Ziprasidone (Geodon Im) 20 mg 1X ONCE IM Last administered on 03/31/19at 04:48; Start 03/31/19 at 05:00; Stop 03/31/19 at 05:01; Status DC Lorazepam (Ativan Inj) 2 mg 1X ONCE IV Last administered on 03/31/19at 04:49; Start 03/31/19 at 05:00; Stop 03/31/19 at 05:01; Status DC Haloperidol Lactate (Haldol Inj) 5 mg 1X ONCE IVP Last administered on 03/31/19at 04:49; Start 03/31/19 at 05:00; Stop 03/31/19 at 05:01; Status DC Acetaminophen/ Hydrocodone Bitart (Lortab 7.5/325) 1 tab 1X ONCE PO ; Start 03/31/19 at 06:00; Stop 03/31/19 at 06:01; Status Cancel Sodium Chloride 1,000 ml @ 150 mls/hr Q6H40M IV Last administered on 03/31/19at 11:00; Start 03/31/19 at 06:00; Stop 04/01/19 at 05:59 Sodium Chloride 1,000 ml @ 1,000 mls/hr 1X ONCE IV Last administered on 03/31/19at 06:21; Start 03/31/19 at 06:30; Stop 03/31/19 at 07:29; Status DC Sodium Chloride 1,000 ml @ 1,000 mls/hr 1X ONCE IV Last administered on 03/31/19at 07:00; Start 03/31/19 at 07:00; Stop 03/31/19 at 07:59; Status DC Piperacillin Sod/ Tazobactam Sod 4.5 gm/Sodium Chloride 100 ml @ 200 mls/hr 1X ONCE IV Last administered on 03/31/19at 07:26; Start 03/31/19 at 07:30; Stop 03/31/19 at 07:59; Status DC Vancomycin HCl 2 gm/Sodium Chloride 500 ml @ 250 mls/hr 1X ONCE IV Last administered on 03/31/19at 08:45; Start 03/31/19 at 07:30; Stop 03/31/19 at 09:29; Status DC Atorvastatin Calcium (Lipitor) 20 mg QHS PO ; Start 03/31/19 at 21:00 Albuterol Sulfate (Ventolin Neb Soln) 2.5 mg PRN QID PRN NEB SHORTNESS OF BREATH; Start 03/31/19 at 14:45 Lorazepam (Ativan) 0.5 mg PRN Q8HRS PRN PO AGITATION; Start 03/31/19 at 14:15 Buspirone HCl (Buspar) 15 mg TID PO ; Start 03/31/19 at 14:30 Duloxetine HCl (Cymbalta) 60 mg DAILY PO ; Start 03/31/19 at 15:00 Quetiapine Fumarate (SEROquel) 200 mg QHS PO ; Start 03/31/19 at 21:00 Active Scripts Active Atorvastatin Calcium 20 Mg Tablet 1 Tab PO DAILY Reported Duoneb 0.5-3(2.5) Mg/3 Ml (Albuterol/Ipratropium) 3 Ml Ampul.neb 3 Ml NEB QIDPRN Diazepam 5 Mg Tablet 5 Mg PO TID Cymbalta (Duloxetine Hcl) 60 Mg Capsule.dr 60 Mg PO DAILY Seroquel (Quetiapine Fumarate) 200 Mg Tablet 200 Mg PO HS Cyclobenzaprine Hcl 10 Mg Tablet 1 Tab PO TID Buspirone Hcl 15 Mg Tablet 1 Tab PO TID Ativan (Lorazepam) 0.5 Mg Tablet 0.5 Mg PO PRN Q8HRS PRN Hydroxyzine Pamoate 50 Mg Capsule 1 Cap PO TID Allergies Allergies: Coded Allergies: loratadine (Verified Allergy, Severe, Shortness of Air, 01/01/19) ROS Review of System Review of Systems Review of Systems Constitutional: No reported fever[] Respiratory: Denies shortness of breath [] Cardiovascular: No additional information not addressed in HPI [] GI: No report of vomiting or diarrhea [] Neurologic: Positive mental status changes 14 PT pt ros otherwise neg[] PSYCHOLOGICAL ROS: YES: Concentration difficultie, Depression, Hallucinations, Irritablity Neurological: Yes Confusion Physical Exam Physical Exam Physical Exam Physical Exam Constitutional: Well developed, well nourished, anxious, appears intoxicated. [] HENT: Normocephalic, atraumatic, bilateral external ears normal, oropharynx dry, no oral exudates, nose normal. [] Eyes: PERRLA, EOMI, conjunctiva normal, no discharge. [] Neck: Normal range of motion, no tenderness, supple, no stridor. [] Cardiovascular: Mildly tachycardic rate with regular rhythm[] Lungs & Thorax: Bilateral breath sounds clear to auscultation [] Abdomen: Bowel sounds normal, soft, no tenderness. [] Skin: Warm, dry, no erythema, no rash. [] Extremities: No tenderness, no cyanosis, no clubbing, ROM intact. [] Neurologic: Awake and alert, confused, no focal deficits noted. [] General: Alert, Oriented X3, Cooperative Heart: RRR Rectal Exam: not examined Extremities: No cyanosis Neuro: Cranial nerves 3-12 NL Vitals Vitals Vital Signs Date Time Temp Pulse Resp B/P (MAP) Pulse Ox O2 Delivery O2 Flow Rate FiO2 03/31/19 14:00 80 15 120/72 (88) 99 Nasal Cannula 2.0 03/31/19 12:00 97.5 97.5 Labs Labs Laboratory Tests Test 03/31/19 04:00 03/31/19 07:35 03/31/19 08:04 03/31/19 10:45 White Blood Count 16.7 x10^3/uL (4.0-11.0) Red Blood Count 4.90 x10^6/uL (4.30-5.70) Hemoglobin 14.7 g/dL (13.0-17.5) Hematocrit 44.1 % (39.0-53.0) Mean Corpuscular Volume 90 fL (79-100) Mean Corpuscular Hemoglobin 30 pg (25-35) Mean Corpuscular Hemoglobin Concent 33 g/dL (31-37) Red Cell Distribution Width 15.3 % (11.5-14.5) Platelet Count 256 x10^3/uL (140-400) Neutrophils (%) (Auto) 68 % (31-73) Lymphocytes (%) (Auto) 20 % (24-48) Monocytes (%) (Auto) 11 % (0-9) Eosinophils (%) (Auto) 1 % (0-3) Basophils (%) (Auto) 0 % (0-3) Neutrophils # (Auto) 11.3 x10^3uL (1.8-7.7) Lymphocytes # (Auto) 3.3 x10^3/uL (1.0-4.8) Monocytes # (Auto) 1.9 x10^3/uL (0.0-1.1) Eosinophils # (Auto) 0.2 x10^3/uL (0.0-0.7) Basophils # (Auto) 0.1 x10^3/uL (0.0-0.2) Segmented Neutrophils % 60 % (35-66) Lymphocytes % 24 % (24-48) Monocytes % 14 % (0-10) Eosinophils % 2 % (0-5) Platelet Estimate Adequate (ADEQUATE) Sodium Level 142 mmol/L (136-145) Potassium Level 3.4 mmol/L (3.5-5.1) Chloride Level 103 mmol/L (98-107) Carbon Dioxide Level 20 mmol/L (21-32) Anion Gap 19 (6-14) Blood Urea Nitrogen 19 mg/dL (8-26) Creatinine 1.7 mg/dL (0.7-1.3) Estimated GFR (Cockcroft-Gault) 42.7 BUN/Creatinine Ratio 11 (6-20) Glucose Level 66 mg/dL (70-99) Lactic Acid Level 5.9 mmol/L (0.4-2.0) 3.8 mmol/L (0.4-2.0) Calcium Level 9.1 mg/dL (8.5-10.1) Magnesium Level 2.1 mg/dL (1.8-2.4) Total Bilirubin 1.0 mg/dL (0.2-1.0) Aspartate Amino Transf (AST/SGOT) 35 U/L (15-37) Alanine Aminotransferase (ALT/SGPT) 21 U/L (16-63) Alkaline Phosphatase 107 U/L (46-116) Troponin I Quantitative < 0.017 ng/mL (0.000-0.055) < 0.017 ng/mL (0.000-0.055) 0.024 ng/mL (0.000-0.055) Total Protein 7.3 g/dL (6.4-8.2) Albumin 4.0 g/dL (3.4-5.0) Albumin/Globulin Ratio 1.2 (1.0-1.7) Salicylates Level 4.0 mg/dL (2.8-20.0) Salicylate Last Dose Date Unk Salicylate Last Dose Time Unk Acetaminophen Level < 2 mcg/ml (10-30) Acetaminophen Last Dose Date Unk Acetaminophen Last Dose Time Unk Urine Collection Type Unknown Urine Color Yellow Urine Clarity Clear Urine pH 5.5 Urine Specific [place] 1.015 Urine Protein Negative mg/dL (NEG-TRACE) Urine Glucose (UA) Negative mg/dL (NEG) Urine Ketones (Stick) 40 mg/dL (NEG) Urine Blood Small (NEG) Urine Nitrite Negative (NEG) Urine Bilirubin Negative (NEG) Urine Urobilinogen Dipstick 0.2 mg/dL (0.2 mg/dL) Urine Leukocyte Esterase Trace (NEG) Urine RBC Occ /HPF (0-2) Urine WBC Occ /HPF (0-4) Urine Squamous Epithelial Cells Mod /LPF Urine Bacteria 0 /HPF (0-FEW) Urine Hyaline Casts Moderate /HPF Urine Mucus Mod /LPF Urine Opiates Screen Neg (NEG) Urine Methadone Screen Neg (NEG) Urine Barbiturates Neg (NEG) Urine Phencyclidine Screen Neg (NEG) Urine Amphetamine/Methamphetamine Pos (NEG) Urine Benzodiazepines Screen Neg (NEG) Urine Cocaine Screen Neg (NEG) Urine Cannabinoids Screen Pos (NEG) Urine Ethyl Alcohol Pos (NEG) Laboratory Tests Test 03/31/19 04:00 03/31/19 07:35 03/31/19 08:04 03/31/19 10:45 White Blood Count 16.7 x10^3/uL (4.0-11.0) Red Blood Count 4.90 x10^6/uL (4.30-5.70) Hemoglobin 14.7 g/dL (13.0-17.5) Hematocrit 44.1 % (39.0-53.0) Mean Corpuscular Volume 90 fL (79-100) Mean Corpuscular Hemoglobin 30 pg (25-35) Mean Corpuscular Hemoglobin Concent 33 g/dL (31-37) Red Cell Distribution Width 15.3 % (11.5-14.5) Platelet Count 256 x10^3/uL (140-400) Neutrophils (%) (Auto) 68 % (31-73) Lymphocytes (%) (Auto) 20 % (24-48) Monocytes (%) (Auto) 11 % (0-9) Eosinophils (%) (Auto) 1 % (0-3) Basophils (%) (Auto) 0 % (0-3) Neutrophils # (Auto) 11.3 x10^3uL (1.8-7.7) Lymphocytes # (Auto) 3.3 x10^3/uL (1.0-4.8) Monocytes # (Auto) 1.9 x10^3/uL (0.0-1.1) Eosinophils # (Auto) 0.2 x10^3/uL (0.0-0.7) Basophils # (Auto) 0.1 x10^3/uL (0.0-0.2) Segmented Neutrophils % 60 % (35-66) Lymphocytes % 24 % (24-48) Monocytes % 14 % (0-10) Eosinophils % 2 % (0-5) Platelet Estimate Adequate (ADEQUATE) Sodium Level 142 mmol/L (136-145) Potassium Level 3.4 mmol/L (3.5-5.1) Chloride Level 103 mmol/L (98-107) Carbon Dioxide Level 20 mmol/L (21-32) Anion Gap 19 (6-14) Blood Urea Nitrogen 19 mg/dL (8-26) Creatinine 1.7 mg/dL (0.7-1.3) Estimated GFR (Cockcroft-Gault) 42.7 BUN/Creatinine Ratio 11 (6-20) Glucose Level 66 mg/dL (70-99) Lactic Acid Level 5.9 mmol/L (0.4-2.0) 3.8 mmol/L (0.4-2.0) Calcium Level 9.1 mg/dL (8.5-10.1) Magnesium Level 2.1 mg/dL (1.8-2.4) Total Bilirubin 1.0 mg/dL (0.2-1.0) Aspartate Amino Transf (AST/SGOT) 35 U/L (15-37) Alanine Aminotransferase (ALT/SGPT) 21 U/L (16-63) Alkaline Phosphatase 107 U/L (46-116) Troponin I Quantitative < 0.017 ng/mL (0.000-0.055) < 0.017 ng/mL (0.000-0.055) 0.024 ng/mL (0.000-0.055) Total Protein 7.3 g/dL (6.4-8.2) Albumin 4.0 g/dL (3.4-5.0) Albumin/Globulin Ratio 1.2 (1.0-1.7) Salicylates Level 4.0 mg/dL (2.8-20.0) Salicylate Last Dose Date Unk Salicylate Last Dose Time Unk Acetaminophen Level < 2 mcg/ml (10-30) Acetaminophen Last Dose Date Unk Acetaminophen Last Dose Time Unk Urine Collection Type Unknown Urine Color Yellow Urine Clarity Clear Urine pH 5.5 Urine Specific [place] 1.015 Urine Protein Negative mg/dL (NEG-TRACE) Urine Glucose (UA) Negative mg/dL (NEG) Urine Ketones (Stick) 40 mg/dL (NEG) Urine Blood Small (NEG) Urine Nitrite Negative (NEG) Urine Bilirubin Negative (NEG) Urine Urobilinogen Dipstick 0.2 mg/dL (0.2 mg/dL) Urine Leukocyte Esterase Trace (NEG) Urine RBC Occ /HPF (0-2) Urine WBC Occ /HPF (0-4) Urine Squamous Epithelial Cells Mod /LPF Urine Bacteria 0 /HPF (0-FEW) Urine Hyaline Casts Moderate /HPF Urine Mucus Mod /LPF Urine Opiates Screen Neg (NEG) Urine Methadone Screen Neg (NEG) Urine Barbiturates Neg (NEG) Urine Phencyclidine Screen Neg (NEG) Urine Amphetamine/Methamphetamine Pos (NEG) Urine Benzodiazepines Screen Neg (NEG) Urine Cocaine Screen Neg (NEG) Urine Cannabinoids Screen Pos (NEG) Urine Ethyl Alcohol Pos (NEG) VTE Prophylaxis Ordered VTE Prophylaxis Devices: Yes VTE Pharmacological Prophylaxi: Yes Assessment/Plan Assessment/Plan IMPRESSION ALTERED MENTAL STATUS METH ABUSE SEVERE AGITATION Severe osteoarthritis History of bipolar disorder Tobacco abuse with greater than 19-[id number] history of smoking COPD psychomotor agitation alcohol abuse plan icu bed withdrawal precautions neurology consult 37 min cc time YANCY TAYLOR MD March 31, 2019 14:48
[2019-03-31] MEDS: busPIRone 5 MG TABLET. PO SCH ×2 (15:02→21:08)
[2019-03-31] MEDS: DULoxetine HCL 30 MG CAPSULE.DR PO SCH (15:02)
[2019-03-31] MEDS ORDERED: IV NORMAL SALINE 500ML BAG 500 ML IV PRN (15:15)
[2019-03-31] MEDS ORDERED: HALOPERIDOL LACTATE 5 MG/ML VIAL. IVP PRN (15:15)
[2019-03-31] MEDS ORDERED: NOREPINEPHRIN 8MG/250ML PREMIX 250 ML IV PRN (15:15)
[2019-03-31] MEDS ORDERED: LORazepam 1 MG TABLET PO PRN (15:15)
[2019-03-31] MEDS ORDERED: cefTRIAXone IV Push 1 GM VIAL. IVP SCH (16:00)
[2019-03-31] MEDS: MULTIVIT INFUSN,ADULT 4,VIT K 10 ML, THIAMINE INJ 100 MG, FOLIC ACID INJ 1 MG in IV NOR... IV SCH (16:11)
[2019-03-31 16:16] LABS: PROTHROMBIN TIME PATIENT 13.8 SEC (11.7-14.0)
--- NOTE | 2019-03-31 16:16 | CONS ---
DATE OF CONSULTATION: 03/31/2019 REASON FOR CONSULTATION: Hypotension. HISTORY OF PRESENT ILLNESS: The patient is well known to our service. He was actually seen in the hospital approximately a month ago in the setting of mental status changes, which were attributed to his psychiatric issues. Nonetheless, he presents back to the hospital apparently being found in the middle of the road screaming and in a poor physical health. Upon initial arrival, he was noted to be hypotensive and was appropriately resuscitated and currently he is resting comfortably in his ICU bed. Initial evaluation in the ER revealed elevated white blood cell count, lactate of 5.9 with negative troponins x 3 and no evidence of acute ischemic changes on EKG. His toxicology report returned positive for methamphetamine use and marijuana use as well as alcohol. PAST MEDICAL HISTORY: 1. COPD. 2. Prior history of traumatic brain injury. 3. Hypertriglyceridemia. 4. Atypical chest pain. 5. Bipolar disorder. SOCIAL HISTORY: The patient is known to smoke heavily for approximately 4 years. He does use alcohol and illicit drugs. He lives with his family, but currently states that he does not have a house. FAMILY HISTORY: Noncontributory. CURRENT CARDIOVASCULAR MEDICATIONS: None. ALLERGIES: LORATADINE. REVIEW OF SYSTEMS: Negative for 10 out of 14 systems reviewed, unless otherwise mentioned above in HPI. PHYSICAL EXAMINATION: GENERAL: He is somnolent, but arousable. Not in any acute distress. HEAD AND NECK: Unremarkable. CARDIAC: Regular rate and rhythm without murmurs, rubs or gallops. LUNGS: Notable for clear breath sounds anteriorly. ABDOMEN: Soft, nontender, nondistended. EXTREMITIES: No clubbing, cyanosis or edema. NEUROLOGIC: No focal deficits. MUSCULOSKELETAL: No trauma. DIAGNOSTIC STUDIES: Positive for as noted above with amphetamine and alcohol use. Cardiac enzymes negative. EKG is unremarkable. IMPRESSION: Hypotension likely in the setting of drug abuse and metabolic issues. No obvious cardiac pathology noted. Of note, he had an echocardiogram last month, which was unremarkable, and did not reveal any significant wall motion abnormalities. His EKG and enzymes are not consistent with any acute cardiac injury. Supportive care from a cardiac standpoint, no further cardiovascular testing necessary at this time. Thank you for this consultation. DINA JENKINS MD DR: DOUGIE/faviola JOB#: [id number] / [id number]
[2019-03-31] MEDS: ATORVASTATIN CALCIUM 20 MG TABLET PO SCH (21:07)
[2019-03-31] MEDS: QUEtiapine 100 MG TABLET. PO SCH (21:07)
[2019-04-01] VITALS (13 sets, daily range): BP systolic 126–167; BP diastolic 66–96
[2019-04-01] MEDS: IV NORMAL SALINE 1000ML BAG 1,000 ML IV SCH (01:40)
[2019-04-01 05:09] LABS: BASO % 0 % (0-3); EOS # 0.1 x10^3/uL (0.0-0.7); EOS % 3 % (0-3); HEMATOCRIT 35.2 % (39.0-53.0); HEMOGLOBIN 11.7 g/dL (13.0-17.5); LYMPH # 1.1 x10^3/uL (1.0-4.8); LYMPH % 22 % (24-48); MEAN CORPUSCULAR HEMOGLOBIN 30 pg (25-35); MEAN CORPUSCULAR HGB CONC 33 g/dL (31-37); MEAN CORPUSCULAR VOLUME 91 fL (79-100); MONO # 0.5 x10^3/uL (0.0-1.1); MONO % 9 % (0-9); NEUT # 3.5 x10^3uL (1.8-7.7); NEUT % 67 % (31-73); PLATELET COUNT 148 x10^3/uL (140-400); RED BLOOD COUNT 3.86 x10^6/uL (4.30-5.70); RED CELL DISTRIBUTION WIDTH 15.3 % (11.5-14.5); WHITE BLOOD COUNT 5.3 x10^3/uL (4.0-11.0)
[2019-04-01 06:02] LABS: ALBUMIN 2.5 g/dL (3.4-5.0); CALCIUM 7.8 mg/dL (8.5-10.1); GFR 78.8; POTASSIUM 3.6 mmol/L (3.5-5.1); TOTAL BILIRUBIN 0.9 mg/dL (0.2-1.0); TOTAL PROTEIN 4.9 g/dL (6.4-8.2)
[2019-04-01] MEDS: MULTIVIT INFUSN,ADULT 4,VIT K 10 ML, THIAMINE INJ 100 MG, FOLIC ACID INJ 1 MG in IV NOR... IV SCH (08:57)
[2019-04-01] MEDS: DULoxetine HCL 30 MG CAPSULE.DR PO SCH (09:16)
[2019-04-01] MEDS: busPIRone 5 MG TABLET. PO SCH ×3 (09:17→20:40)
--- NOTE | 2019-04-01 12:00 | NUR ---
Pt transferred from ICU 111 to 4N 408. Pt alert, oriented, stable and in agreement with transfer plans. All belongings taken at time of transfer, pt's home medications that are controlled substances have been sent to pharmacy for safekeeping (receipt in chart).
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
[2019-04-01] MEDS: LORazepam 0.5 MG TABLET PO PRN ×2 (14:19→20:40)
[2019-04-01] MEDS: HYDROcodone/APAP 7.5/325MG 1 TAB TABLET PO PRN ×2 (14:20→20:41)
--- NOTE | 2019-04-01 15:00 | PDOC ---
Infectious Disease Note Vital Sign Vital Signs Vital Signs Date Time Temp Pulse Resp B/P (MAP) Pulse Ox O2 Delivery O2 Flow Rate FiO2 04/01/19 14:20 18 Room Air 04/01/19 12:40 97.8 88 166/89 (114) 93 97.8 03/31/19 18:00 2.0 Labs Lab Laboratory Tests Test 03/31/19 15:50 04/01/19 04:30 Prothrombin Time 13.8 SEC (11.7-14.0) Prothromb Time International Ratio 1.1 (0.8-1.1) Activated Partial Thromboplast Time 34 SEC (24-38) Fibrinogen 349 mg/dL (200-440) Lactic Acid Level 2.3 mmol/L (0.4-2.0) Procalcitonin 0.24 ng/mL (0.00-0.10) White Blood Count 5.3 x10^3/uL (4.0-11.0) Red Blood Count 3.86 x10^6/uL (4.30-5.70) Hemoglobin 11.7 g/dL (13.0-17.5) Hematocrit 35.2 % (39.0-53.0) Mean Corpuscular Volume 91 fL (79-100) Mean Corpuscular Hemoglobin 30 pg (25-35) Mean Corpuscular Hemoglobin Concent 33 g/dL (31-37) Red Cell Distribution Width 15.3 % (11.5-14.5) Platelet Count 148 x10^3/uL (140-400) Neutrophils (%) (Auto) 67 % (31-73) Lymphocytes (%) (Auto) 22 % (24-48) Monocytes (%) (Auto) 9 % (0-9) Eosinophils (%) (Auto) 3 % (0-3) Basophils (%) (Auto) 0 % (0-3) Neutrophils # (Auto) 3.5 x10^3uL (1.8-7.7) Lymphocytes # (Auto) 1.1 x10^3/uL (1.0-4.8) Monocytes # (Auto) 0.5 x10^3/uL (0.0-1.1) Eosinophils # (Auto) 0.1 x10^3/uL (0.0-0.7) Basophils # (Auto) 0.0 x10^3/uL (0.0-0.2) Sodium Level 141 mmol/L (136-145) Potassium Level 3.6 mmol/L (3.5-5.1) Chloride Level 109 mmol/L (98-107) Carbon Dioxide Level 21 mmol/L (21-32) Anion Gap 11 (6-14) Blood Urea Nitrogen 17 mg/dL (8-26) Creatinine 1.0 mg/dL (0.7-1.3) Estimated GFR (Cockcroft-Gault) 78.8 BUN/Creatinine Ratio 17 (6-20) Glucose Level 78 mg/dL (70-99) Calcium Level 7.8 mg/dL (8.5-10.1) Total Bilirubin 0.9 mg/dL (0.2-1.0) Aspartate Amino Transf (AST/SGOT) 26 U/L (15-37) Alanine Aminotransferase (ALT/SGPT) 19 U/L (16-63) Alkaline Phosphatase 74 U/L (46-116) Total Protein 4.9 g/dL (6.4-8.2) Albumin 2.5 g/dL (3.4-5.0) Albumin/Globulin Ratio 1.0 (1.0-1.7) Micro Microbiology 03/31/19 Blood Culture - Preliminary, Resulted NO GROWTH AFTER 1 DAY Objective Assessment pt seen, consult dictated Plan Plan of Care -- DIANA RICHARDSON MD April 01, 2019 15:00
[2019-04-01] MEDS: tiZANidine 4 MG TABLET. PO PRN (16:33)
--- NOTE | 2019-04-01 17:50 | NUR ---
Call placed to pt's water resources technical officer, Cally Mott Addendum: 04/01/19 at 1800 by MACARENA GONZALEZ RN Director Public Policy, Cally Mott returned call within 5 minutes, transferred to pt's room and given direct number for contact. Pt is observed talking to her at this time.
[2019-04-01] MEDS: QUEtiapine 100 MG TABLET. PO SCH (20:40)
[2019-04-01] MEDS: ATORVASTATIN CALCIUM 20 MG TABLET PO SCH (20:40)
[2019-04-01] MEDS: LACTOBACILLUS RHAMNOSUS GG 1 CAPSULE. PO SCH (20:40)
[2019-04-02 02:54] VITALS: BP 125/88
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
[2019-04-02 07:00] VITALS: BP 135/89
[2019-04-02 07:07] LABS: BASO % 1 % (0-3); EOS # 0.1 x10^3/uL (0.0-0.7); EOS % 3 % (0-3); HEMATOCRIT 36.1 % (39.0-53.0); HEMOGLOBIN 12.1 g/dL (13.0-17.5); LYMPH # 1.2 x10^3/uL (1.0-4.8); LYMPH % 27 % (24-48); MEAN CORPUSCULAR HEMOGLOBIN 30 pg (25-35); MEAN CORPUSCULAR HGB CONC 34 g/dL (31-37); MEAN CORPUSCULAR VOLUME 91 fL (79-100); MONO # 0.5 x10^3/uL (0.0-1.1); MONO % 12 % (0-9); NEUT # 2.4 x10^3uL (1.8-7.7); NEUT % 57 % (31-73); PLATELET COUNT 130 x10^3/uL (140-400); RED BLOOD COUNT 3.99 x10^6/uL (4.30-5.70); RED CELL DISTRIBUTION WIDTH 15.1 % (11.5-14.5); WHITE BLOOD COUNT 4.3 x10^3/uL (4.0-11.0)
[2019-04-02 07:24] LABS: CREATININE 0.9 mg/dL (0.7-1.3); POTASSIUM 3.8 mmol/L (3.5-5.1)
--- NOTE | 2019-04-02 08:35 | RAD ---
CT HEAD AND CERVICAL SPINE WO Clinical indications: Altered mental status. Neck pain. NONCONTRAST HEAD CT Technique: Noncontrast axial cross sectional scanning of the head was performed. PQRS compliance Statement One or more of the following individualized dose reduction techniques were utilized for this study: 1. Automated exposure control 2. Adjustment of the mA and/or kV according to patient size 3. Use of iterative reconstruction technique Findings: No acute intracranial hemorrhage or midline shift or mass-effect or hydrocephalus or extra-axial fluid collection is seen. Multiple small periventricular white matter hypodense lesions are seen. No skull fracture or pneumocephalus is seen. No opacification of the mastoid sinuses or the paranasal sinuses is seen. The maxillary sinuses are not completely seen in this study. IMPRESSION: No acute intracranial hemorrhage is seen. Multiple small periventricular white matter hypodense lesions are seen. This may represent chronic small vessel ischemic disease but other considerations include a demyelinating process such as multiple sclerosis or even metastatic disease if there is a history of primary malignancy. MRI study of the brain with and without gadolinium may be helpful for further evaluation. CT STUDY OF THE CERVICAL SPINE WITHOUT CONTRAST TECHNIQUE: Noncontrast helical CT scanning of the cervical spine was performed. Multiplanar 2-D reconstructions were generated. FINDINGS: No acute fracture is evident. No discitis or lytic process evident. No anterolisthesis is evident. Degenerative facet arthropathy is evident. No perching of facet joints is seen. Degenerative disc space narrowing and endplate spurring is seen at C4-5 and C5-6 and C6-7 and C7-T1. There is narrowing of the neural foramina bilaterally at C4-5 and C5-6 and C6-7. Multilevel mild spinal canal stenosis is seen most prominent on left side at C5-6 and C6-7. IMPRESSION: Degenerative cervical spondylosis. Electronically signed by: Ilan Boateng MD (04/02/2019 8:32 AM) [facility]
[2019-04-02] MEDS: MULTIVIT INFUSN,ADULT 4,VIT K 10 ML, THIAMINE INJ 100 MG, FOLIC ACID INJ 1 MG in IV NOR... IV SCH (10:22)
[2019-04-02] MEDS: LACTOBACILLUS RHAMNOSUS GG 1 CAPSULE. PO SCH ×2 (10:24→20:02)
[2019-04-02] MEDS: busPIRone 5 MG TABLET. PO SCH ×3 (10:24→20:02)
[2019-04-02] MEDS: DULoxetine HCL 30 MG CAPSULE.DR PO SCH (10:24)
[2019-04-02 11:00] VITALS: BP 143/87
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
--- NOTE | 2019-04-02 13:03 | PDOC ---
Infectious Disease Note Vital Sign Vital Signs Vital Signs Date Time Temp Pulse Resp B/P (MAP) Pulse Ox O2 Delivery O2 Flow Rate FiO2 04/02/19 11:00 97.9 66 20 143/87 (105) 95 Room Air 97.9 Labs Lab Laboratory Tests Test 04/02/19 05:30 White Blood Count 4.3 x10^3/uL (4.0-11.0) Red Blood Count 3.99 x10^6/uL (4.30-5.70) Hemoglobin 12.1 g/dL (13.0-17.5) Hematocrit 36.1 % (39.0-53.0) Mean Corpuscular Volume 91 fL (79-100) Mean Corpuscular Hemoglobin 30 pg (25-35) Mean Corpuscular Hemoglobin Concent 34 g/dL (31-37) Red Cell Distribution Width 15.1 % (11.5-14.5) Platelet Count 130 x10^3/uL (140-400) Neutrophils (%) (Auto) 57 % (31-73) Lymphocytes (%) (Auto) 27 % (24-48) Monocytes (%) (Auto) 12 % (0-9) Eosinophils (%) (Auto) 3 % (0-3) Basophils (%) (Auto) 1 % (0-3) Neutrophils # (Auto) 2.4 x10^3uL (1.8-7.7) Lymphocytes # (Auto) 1.2 x10^3/uL (1.0-4.8) Monocytes # (Auto) 0.5 x10^3/uL (0.0-1.1) Eosinophils # (Auto) 0.1 x10^3/uL (0.0-0.7) Basophils # (Auto) 0.0 x10^3/uL (0.0-0.2) Sodium Level 145 mmol/L (136-145) Potassium Level 3.8 mmol/L (3.5-5.1) Chloride Level 110 mmol/L (98-107) Carbon Dioxide Level 26 mmol/L (21-32) Anion Gap 9 (6-14) Blood Urea Nitrogen 10 mg/dL (8-26) Creatinine 0.9 mg/dL (0.7-1.3) Estimated GFR (Cockcroft-Gault) 89.0 Glucose Level 86 mg/dL (70-99) Calcium Level 8.0 mg/dL (8.5-10.1) Micro Microbiology 03/31/19 Blood Culture - Preliminary, Resulted NO GROWTH AFTER 1 DAY Objective Assessment pt seen, consult dictated Plan Plan of Care -- DIANA RICHARDSON MD April 02, 2019 13:03
[2019-04-02 15:00] VITALS: BP 163/78
--- NOTE | 2019-04-02 15:53 | PDOC2 ---
CONSULT Date of Consult Date of Consult DATE: 04/02/19 TIME: 15:53 Reason for Consult Reason for Consult: AMS History of Present Illness Reason for Visit: This patient presented to the emergency room with episode of confusion. Patient was noted to be hypertensive on arrival. Patient had improvement in symptoms. Patient currently denies any complaint of headache nausea or vomiting. Patient denies any difficulty speaking tingling numbness on the face. Patient has history of chronic neck discomfort. Patient denies any difficulty with gait or balance. Past Medical History Cardiovascular: No pertinent hx Psych: Addictions Infectious disease: No pertinent hx Family History Family History: Hypertension Social History <1 pack per day ALCOHOL: heavy Drugs: Marijuana, Crystal meth Current Problem List Problem List Problems Medical Problems: (1) Acute bronchitis with bronchospasm Status: Acute (2) Altered mental status Status: Acute (3) Dehydration Status: Acute (4) Septic shock Status: Acute Current Medications Current Medications Current Medications Ziprasidone (Geodon Im) 20 mg STK-MED ONCE IM ; Start 03/31/19 at 04:24; Stop 03/31/19 at 04:25; Status DC Sodium Chloride 1,000 ml @ 1,000 mls/hr 1X ONCE IV Last administered on 03/31/19at 04:49; Start 03/31/19 at 05:00; Stop 03/31/19 at 05:59; Status DC Ziprasidone (Geodon Im) 20 mg 1X ONCE IM Last administered on 03/31/19at 04:48; Start 03/31/19 at 05:00; Stop 03/31/19 at 05:01; Status DC Lorazepam (Ativan Inj) 2 mg 1X ONCE IV Last administered on 03/31/19at 04:49; Start 03/31/19 at 05:00; Stop 03/31/19 at 05:01; Status DC Haloperidol Lactate (Haldol Inj) 5 mg 1X ONCE IVP Last administered on 03/31/19at 04:49; Start 03/31/19 at 05:00; Stop 03/31/19 at 05:01; Status DC Acetaminophen/ Hydrocodone Bitart (Lortab 7.5/325) 1 tab 1X ONCE PO ; Start 03/31/19 at 06:00; Stop 03/31/19 at 06:01; Status Cancel Sodium Chloride 1,000 ml @ 150 mls/hr Q6H40M IV Last administered on 04/01/19 01:40; Start 03/31/19 at 06:00; Stop 04/01/19 at 05:59; Status DC Sodium Chloride 1,000 ml @ 1,000 mls/hr 1X ONCE IV Last administered on 03/31/19at 06:21; Start 03/31/19 at 06:30; Stop 03/31/19 at 07:29; Status DC Sodium Chloride 1,000 ml @ 1,000 mls/hr 1X ONCE IV Last administered on 03/31/19at 07:00; Start 03/31/19 at 07:00; Stop 03/31/19 at 07:59; Status DC Piperacillin Sod/ Tazobactam Sod 4.5 gm/Sodium Chloride 100 ml @ 200 mls/hr 1X ONCE IV Last administered on 03/31/19at 07:26; Start 03/31/19 at 07:30; Stop 03/31/19 at 07:59; Status DC Vancomycin HCl 2 gm/Sodium Chloride 500 ml @ 250 mls/hr 1X ONCE IV Last administered on 03/31/19at 08:45; Start 03/31/19 at 07:30; Stop 03/31/19 at 09:29; Status DC Atorvastatin Calcium (Lipitor) 20 mg QHS PO Last administered on 04/01/19 20:40; Start 03/31/19 at 21:00 Albuterol Sulfate (Ventolin Neb Soln) 2.5 mg PRN QID PRN NEB SHORTNESS OF BREATH; Start 03/31/19 at 14:45 Lorazepam (Ativan) 0.5 mg PRN Q8HRS PRN PO AGITATION Last administered on 04/01/19at 20:40; Start 03/31/19 at 14:15 Buspirone HCl (Buspar) 15 mg TID PO Last administered on 04/02/19at 15:27; Start 03/31/19 at 14:30 Duloxetine HCl (Cymbalta) 60 mg DAILY PO Last administered on 04/02/19at 10:24; Start 03/31/19 at 15:00 Quetiapine Fumarate (SEROquel) 200 mg QHS PO Last administered on 04/01/19 20:40; Start 03/31/19 at 21:00 Ceftriaxone Sodium (Rocephin) 1 gm Q24H IVP Last administered on 03/31/19at 16:12; Start 03/31/19 at 16:00; Stop 04/01/19 at 15:01; Status DC Sodium Chloride 1,000 ml @ 2,550 mls/hr Q24M IV ; Start 03/31/19 at 15:11; Stop 03/31/19 at 16:11; Status DC Sodium Chloride 500 ml @ 1,000 mls/hr PRN Q30MIN PRN IV SEE COMMENTS; Start 03/31/19 at 15:15 Norepinephrine Bitartrate 250 ml @ 0 mls/hr CONT PRN IV SEE I/O RECORD; Start 03/31/19 at 15:15; Stop 04/01/19 at 13:52; Status DC Dobutamine HCl/ Dextrose 250 ml @ 0 mls/hr CONT PRN IV SEE I/O RECORD; Start 03/31/19 at 15:15; Stop 04/02/19 at 13:09; Status DC Multivitamins 10 ml/Thiamine HCl 100 mg/Folic Acid 1 mg/Sodium Chloride 1,011.2 ml @ 100 mls/ hr DAILY IV Last administered on 04/02/19at 10:22; Start 03/31/19 at 15:30; Stop 04/02/19 at 23:00 Multivitamins (Thera M Plus) 1 tab DAILY PO ; Start 04/03/19 at 09:00 Folic Acid (Folic Acid) 1 mg DAILY PO ; Start 04/03/19 at 09:00 Lorazepam (Ativan) 4 mg PRN Q1HR PRN PO For CIWA 8-14; Start 03/31/19 at 15:15 Lorazepam (Ativan Inj) 2 mg PRN Q1HR PRN IV For CIWA 8-14 Last administered on 04/02/19at 15:30; Start 03/31/19 at 15:15 Lorazepam (Ativan Inj) 4 mg PRN Q1HR PRN IV For CIWA 15 or greater; Start 03/31/19 at 15:15 Haloperidol Lactate (Haldol Inj) 5 mg PRN Q4HRS PRN IVP Hallucinatns,Confusn,Delirium; Start 03/31/19 at 15:15 Clonidine HCl (Catapres) 0.1 mg PRN Q1HR PRN PO SBP > 180 or DBP > 100, MRX3; Start 03/31/19 at 15:15 Lorazepam (Ativan Inj) 2 mg PRN Q15MIN PRN IV SEE COMMENTS; Start 03/31/19 at 15:15; Stop 04/01/19 at 13:53; Status DC Lorazepam (Ativan Inj) 4 mg PRN Q15MIN PRN IV SEE COMMENTS; Start 03/31/19 at 15:15; Stop 04/01/19 at 13:53; Status DC Lactobacillus Rhamnosus (Culturelle) 1 cap BID PO Last administered on 04/02/19at 10:24; Start 04/01/19 at 21:00 Acetaminophen/ Hydrocodone Bitart (Lortab 7.5/325) 1 tab PRN Q6HRS PRN PO PAIN Last administered on 04/01/19at 20:41; Start 04/01/19 at 14:00 Tizanidine HCl (Zanaflex) 4 mg PRN Q8HRS PRN PO MUSCLE SPASMS Last administered on 04/01/19at 16:33; Start 04/01/19 at 16:15 Thiamine Mononitrate (Vitamin B-1) 100 mg DAILY PO ; Start 04/03/19 at 09:00 Active Scripts Active Atorvastatin Calcium 20 Mg Tablet 1 Tab PO DAILY Reported Duoneb 0.5-3(2.5) Mg/3 Ml (Albuterol/Ipratropium) 3 Ml Ampul.neb 3 Ml NEB QIDPRN Diazepam 5 Mg Tablet 5 Mg PO TID Cymbalta (Duloxetine Hcl) 60 Mg Capsule.dr 60 Mg PO DAILY Seroquel (Quetiapine Fumarate) 200 Mg Tablet 200 Mg PO HS Cyclobenzaprine Hcl 10 Mg Tablet 1 Tab PO TID Buspirone Hcl 15 Mg Tablet 1 Tab PO TID Ativan (Lorazepam) 0.5 Mg Tablet 0.5 Mg PO PRN Q8HRS PRN Hydroxyzine Pamoate 50 Mg Capsule 1 Cap PO TID Allergies Allergies: Coded Allergies: loratadine (Verified Allergy, Severe, Shortness of Air, 01/01/19) ROS Review of System A 10-point review of systems was obtained. Other than the history of present illness the remainder of the review of systems is negative. Physical Exam Physical Exam General no acute distress. HEENT: Normocephalic and atraumatic. NECK: Supple without bruit Respiratory: Clear to auscultation bilaterally Heart: Regular rate and rhythm, S1S2 normal NEUROLOGIC: Mental status Alert oriented. Cranial nerve equally reactive pupils, and intact extraocular movements. No facial asymmetry. Palate elevates and tongue protrudes in midline. Reflexes are 1-2 with flexor plantar responses. Coordination no dysmetria Strength able to move all exts equally. Sensory exam is intact for light touch and pinprick. Gait in bed. Vitals VITALS Vital Signs Date Time Temp Pulse Resp B/P (MAP) Pulse Ox O2 Delivery O2 Flow Rate FiO2 04/02/19 15:00 97.4 63 20 163/78 (106) 98 Room Air 97.4 Labs Labs Laboratory Tests Test 04/01/19 04:30 04/02/19 05:30 White Blood Count 5.3 x10^3/uL (4.0-11.0) 4.3 x10^3/uL (4.0-11.0) Red Blood Count 3.86 x10^6/uL (4.30-5.70) 3.99 x10^6/uL (4.30-5.70) Hemoglobin 11.7 g/dL (13.0-17.5) 12.1 g/dL (13.0-17.5) Hematocrit 35.2 % (39.0-53.0) 36.1 % (39.0-53.0) Mean Corpuscular Volume 91 fL (79-100) 91 fL (79-100) Mean Corpuscular Hemoglobin 30 pg (25-35) 30 pg (25-35) Mean Corpuscular Hemoglobin Concent 33 g/dL (31-37) 34 g/dL (31-37) Red Cell Distribution Width 15.3 % (11.5-14.5) 15.1 % (11.5-14.5) Platelet Count 148 x10^3/uL (140-400) 130 x10^3/uL (140-400) Neutrophils (%) (Auto) 67 % (31-73) 57 % (31-73) Lymphocytes (%) (Auto) 22 % (24-48) 27 % (24-48) Monocytes (%) (Auto) 9 % (0-9) 12 % (0-9) Eosinophils (%) (Auto) 3 % (0-3) 3 % (0-3) Basophils (%) (Auto) 0 % (0-3) 1 % (0-3) Neutrophils # (Auto) 3.5 x10^3uL (1.8-7.7) 2.4 x10^3uL (1.8-7.7) Lymphocytes # (Auto) 1.1 x10^3/uL (1.0-4.8) 1.2 x10^3/uL (1.0-4.8) Monocytes # (Auto) 0.5 x10^3/uL (0.0-1.1) 0.5 x10^3/uL (0.0-1.1) Eosinophils # (Auto) 0.1 x10^3/uL (0.0-0.7) 0.1 x10^3/uL (0.0-0.7) Basophils # (Auto) 0.0 x10^3/uL (0.0-0.2) 0.0 x10^3/uL (0.0-0.2) Sodium Level 141 mmol/L (136-145) 145 mmol/L (136-145) Potassium Level 3.6 mmol/L (3.5-5.1) 3.8 mmol/L (3.5-5.1) Chloride Level 109 mmol/L (98-107) 110 mmol/L (98-107) Carbon Dioxide Level 21 mmol/L (21-32) 26 mmol/L (21-32) Anion Gap 11 (6-14) 9 (6-14) Blood Urea Nitrogen 17 mg/dL (8-26) 10 mg/dL (8-26) Creatinine 1.0 mg/dL (0.7-1.3) 0.9 mg/dL (0.7-1.3) Estimated GFR (Cockcroft-Gault) 78.8 89.0 BUN/Creatinine Ratio 17 (6-20) Glucose Level 78 mg/dL (70-99) 86 mg/dL (70-99) Calcium Level 7.8 mg/dL (8.5-10.1) 8.0 mg/dL (8.5-10.1) Total Bilirubin 0.9 mg/dL (0.2-1.0) Aspartate Amino Transf (AST/SGOT) 26 U/L (15-37) Alanine Aminotransferase (ALT/SGPT) 19 U/L (16-63) Alkaline Phosphatase 74 U/L (46-116) Total Protein 4.9 g/dL (6.4-8.2) Albumin 2.5 g/dL (3.4-5.0) Albumin/Globulin Ratio 1.0 (1.0-1.7) Laboratory Tests Test 04/02/19 05:30 White Blood Count 4.3 x10^3/uL (4.0-11.0) Red Blood Count 3.99 x10^6/uL (4.30-5.70) Hemoglobin 12.1 g/dL (13.0-17.5) Hematocrit 36.1 % (39.0-53.0) Mean Corpuscular Volume 91 fL (79-100) Mean Corpuscular Hemoglobin 30 pg (25-35) Mean Corpuscular Hemoglobin Concent 34 g/dL (31-37) Red Cell Distribution Width 15.1 % (11.5-14.5) Platelet Count 130 x10^3/uL (140-400) Neutrophils (%) (Auto) 57 % (31-73) Lymphocytes (%) (Auto) 27 % (24-48) Monocytes (%) (Auto) 12 % (0-9) Eosinophils (%) (Auto) 3 % (0-3) Basophils (%) (Auto) 1 % (0-3) Neutrophils # (Auto) 2.4 x10^3uL (1.8-7.7) Lymphocytes # (Auto) 1.2 x10^3/uL (1.0-4.8) Monocytes # (Auto) 0.5 x10^3/uL (0.0-1.1) Eosinophils # (Auto) 0.1 x10^3/uL (0.0-0.7) Basophils # (Auto) 0.0 x10^3/uL (0.0-0.2) Sodium Level 145 mmol/L (136-145) Potassium Level 3.8 mmol/L (3.5-5.1) Chloride Level 110 mmol/L (98-107) Carbon Dioxide Level 26 mmol/L (21-32) Anion Gap 9 (6-14) Blood Urea Nitrogen 10 mg/dL (8-26) Creatinine 0.9 mg/dL (0.7-1.3) Estimated GFR (Cockcroft-Gault) 89.0 Glucose Level 86 mg/dL (70-99) Calcium Level 8.0 mg/dL (8.5-10.1) Assessment/Plan Assessment/Plan This patient presented to the emergency room with episode of confusion. Patient was noted to be hypertensive on arrival. Patient had improvement in symptoms. Patient currently denies any complaint of headache nausea or vomiting. Patient denies any difficulty speaking tingling numbness on the face. Patient has hi story of chronic neck discomfort. Patient denies any difficulty with gait or balance. This patient has past medical history of drug usage alcohol usage with the episode of confusion. Encephalopathy likely due to drug usage, alcohol usage patient has improvement in symptoms. Patient has history of bipolar disorder psychiatry recommendations. Patient did not have any new seizure activity. Patient has history of chronic neck discomfort. Patient had CT scan done on brain which was negative for acute intracranial etiology. No evidence of acute hemorrhage or mass. Changes noted for chronic small vessel ischemic disease. Patient had a CT scan done on the neck showing cervical spondylosis. PT OT. May benefit from pain management. He will follow up in neurology clinic. ZULLY MARTÍNEZ MD April 02, 2019 15:53
[2019-04-02 19:20] VITALS: BP 147/100
[2019-04-02] MEDS: QUEtiapine 100 MG TABLET. PO SCH (20:02)
[2019-04-02] MEDS: ATORVASTATIN CALCIUM 20 MG TABLET PO SCH (20:02)
[2019-04-02] MEDS: LORazepam 0.5 MG TABLET PO PRN (22:19)
[2019-04-02] MEDS: HYDROcodone/APAP 7.5/325MG 1 TAB TABLET PO PRN (22:20)
[2019-04-02 23:20] VITALS: BP 147/93
[2019-04-03] VITALS (7 sets, daily range): BP systolic 130–158; BP diastolic 80–128
[2019-04-03 04:50] LABS: BASO % 1 % (0-3); EOS # 0.1 x10^3/uL (0.0-0.7); EOS % 3 % (0-3); HEMATOCRIT 35.7 % (39.0-53.0); LYMPH # 1.5 x10^3/uL (1.0-4.8); LYMPH % 31 % (24-48); MEAN CORPUSCULAR HEMOGLOBIN 30 pg (25-35); MEAN CORPUSCULAR HGB CONC 34 g/dL (31-37); MEAN CORPUSCULAR VOLUME 90 fL (79-100); MONO # 0.5 x10^3/uL (0.0-1.1); MONO % 11 % (0-9); NEUT # 2.5 x10^3uL (1.8-7.7); NEUT % 54 % (31-73); PLATELET COUNT 137 x10^3/uL (140-400); RED BLOOD COUNT 3.96 x10^6/uL (4.30-5.70); RED CELL DISTRIBUTION WIDTH 14.8 % (11.5-14.5); WHITE BLOOD COUNT 4.7 x10^3/uL (4.0-11.0)
[2019-04-03 05:22] LABS: CALCIUM 8.2 mg/dL (8.5-10.1); GFR 78.8; POTASSIUM 3.5 mmol/L (3.5-5.1)
[2019-04-03] MEDS: HYDROcodone/APAP 7.5/325MG 1 TAB TABLET PO PRN ×2 (07:37→19:33)
[2019-04-03] MEDS: THIAMINE 100 MG TABLET. PO SCH (08:56)
[2019-04-03] MEDS: DULoxetine HCL 30 MG CAPSULE.DR PO SCH (08:56)
[2019-04-03] MEDS: FOLIC ACID 1 MG TABLET. PO SCH (08:56)
[2019-04-03] MEDS: MULTIVITAMIN with MINERAL TABLET. PO SCH (08:56)
[2019-04-03] MEDS: LACTOBACILLUS RHAMNOSUS GG 1 CAPSULE. PO SCH ×2 (08:59→21:10)
[2019-04-03] MEDS: LORazepam 0.5 MG TABLET PO PRN ×2 (09:00→21:12)
[2019-04-03] MEDS: busPIRone 5 MG TABLET. PO SCH ×3 (09:00→21:09)
--- NOTE | 2019-04-03 10:57 | PDOC ---
Infectious Disease Note Subjective: Subjective pt says feels good ROS: ROS Negative except for above. Vital Signs: Vital Signs Vital Signs Date Time Temp Pulse Resp B/P (MAP) Pulse Ox O2 Delivery O2 Flow Rate FiO2 04/03/19 08:57 Room Air 04/03/19 07:00 97.5 69 18 151/87 (108) 97 97.5 Physical Exam: PHYSICAL EXAM HEENT: no icterus NECK: Supple. No JVP, no lymphadenopathy. LUNGS: Clear. HEART: S1 and S2 regular. ABDOMEN: Benign. EXTREMITIES: No edema or cyanosis. SKIN EXAMINATION: Unremarkable. NEUROLOGIC: The patient is neurologically alert, awake and appropriate. No focal neurologic deficits. Medications: Inpatient Meds: Current Medications Medications (Trade) Dose Ordered Sig/Diann Start Time Stop Time Status Last Admin Dose Admin Acetaminophen/ Hydrocodone Bitart (Lortab 7.5/325) 1 tab PRN Q6HRS PRN 04/01/19 14:00 04/03/19 07:37 1 TAB Albuterol Sulfate (Ventolin Neb Soln) 2.5 mg PRN QID PRN 03/31/19 14:45 Atorvastatin Calcium (Lipitor) 20 mg QHS 03/31/19 21:00 04/02/19 20:02 20 MG Buspirone HCl (Buspar) 15 mg TID 03/31/19 14:30 04/03/19 09:00 15 MG Ceftriaxone Sodium (Rocephin) 1 gm Q24H 03/31/19 16:00 04/01/19 15:01 DC 03/31/19 16:12 1 GM Clonidine HCl (Catapres) 0.1 mg PRN Q1HR PRN 03/31/19 15:15 Dobutamine HCl/ Dextrose 250 ml @ 0 mls/hr CONT PRN 03/31/19 15:15 04/02/19 13:09 DC Duloxetine HCl (Cymbalta) 60 mg DAILY 03/31/19 15:00 04/03/19 08:56 60 MG Folic Acid (Folic Acid) 1 mg DAILY 04/03/19 09:00 04/03/19 08:56 1 MG Haloperidol Lactate (Haldol Inj) 5 mg PRN Q4HRS PRN 03/31/19 15:15 Lactobacillus Rhamnosus (Culturelle) 1 cap BID 04/01/19 21:00 04/03/19 08:59 1 CAP Lorazepam (Ativan Inj) 4 mg PRN Q15MIN PRN 03/31/19 15:15 04/01/19 13:53 DC Lorazepam (Ativan) 4 mg PRN Q1HR PRN 03/31/19 15:15 Multivitamins (Thera M Plus) 1 tab DAILY 04/03/19 09:00 04/03/19 08:56 1 TAB Multivitamins 10 ml/Thiamine HCl 100 mg/Folic Acid 1 mg/Sodium Chloride 1,011.2 ml @ 100 mls/ hr DAILY 03/31/19 15:30 04/02/19 23:00 DC 04/02/19 10:22 100 MLS/HR Norepinephrine Bitartrate 250 ml @ 0 mls/hr CONT PRN 03/31/19 15:15 04/01/19 13:52 DC Piperacillin Sod/ Tazobactam Sod 4.5 gm/Sodium Chloride 100 ml @ 200 mls/hr 1X ONCE 03/31/19 07:30 03/31/19 07:59 DC 03/31/19 07:26 200 MLS/HR Quetiapine Fumarate (SEROquel) 200 mg QHS 03/31/19 21:00 04/02/19 20:02 200 MG Sodium Chloride 500 ml @ 1,000 mls/hr PRN Q30MIN PRN 03/31/19 15:15 Thiamine Mononitrate (Vitamin B-1) 100 mg DAILY 04/03/19 09:00 04/03/19 08:56 100 MG Tizanidine HCl (Zanaflex) 4 mg PRN Q8HRS PRN 04/01/19 16:15 04/01/19 16:33 4 MG Vancomycin HCl 2 gm/Sodium Chloride 500 ml @ 250 mls/hr 1X ONCE 03/31/19 07:30 03/31/19 09:29 DC 03/31/19 08:45 250 MLS/HR Ziprasidone (Geodon Im) 20 mg 1X ONCE 03/31/19 05:00 03/31/19 05:01 DC 03/31/19 04:48 20 MG Labs: Lab Laboratory Tests Test 04/03/19 04:03 White Blood Count 4.7 x10^3/uL (4.0-11.0) Red Blood Count 3.96 x10^6/uL (4.30-5.70) Hemoglobin 12.0 g/dL (13.0-17.5) Hematocrit 35.7 % (39.0-53.0) Mean Corpuscular Volume 90 fL (79-100) Mean Corpuscular Hemoglobin 30 pg (25-35) Mean Corpuscular Hemoglobin Concent 34 g/dL (31-37) Red Cell Distribution Width 14.8 % (11.5-14.5) Platelet Count 137 x10^3/uL (140-400) Neutrophils (%) (Auto) 54 % (31-73) Lymphocytes (%) (Auto) 31 % (24-48) Monocytes (%) (Auto) 11 % (0-9) Eosinophils (%) (Auto) 3 % (0-3) Basophils (%) (Auto) 1 % (0-3) Neutrophils # (Auto) 2.5 x10^3uL (1.8-7.7) Lymphocytes # (Auto) 1.5 x10^3/uL (1.0-4.8) Monocytes # (Auto) 0.5 x10^3/uL (0.0-1.1) Eosinophils # (Auto) 0.1 x10^3/uL (0.0-0.7) Basophils # (Auto) 0.0 x10^3/uL (0.0-0.2) Sodium Level 144 mmol/L (136-145) Potassium Level 3.5 mmol/L (3.5-5.1) Chloride Level 109 mmol/L (98-107) Carbon Dioxide Level 27 mmol/L (21-32) Anion Gap 8 (6-14) Blood Urea Nitrogen 7 mg/dL (8-26) Creatinine 1.0 mg/dL (0.7-1.3) Estimated GFR (Cockcroft-Gault) 78.8 Glucose Level 111 mg/dL (70-99) Calcium Level 8.2 mg/dL (8.5-10.1) Objective: Assessment: 1. Encephalopathy secondary to alcohol and drugs. 2. Lactic acidosis secondary to the agitation. 3. Bipolar disorder. 4. Anxiety disorder. 5. Chronic obstructive pulmonary disease. 6. Leukocytosis, reactive. Plan: Plan of Care Monitor off antibiotics Continue supportive care and the patient can be discharged pretty soon. Although the patient is homeless, Social Service will be involved. YAIR RICHARDSON MD April 03, 2019 10:57
[2019-04-03] MEDS: tiZANidine 4 MG TABLET. PO PRN (11:18)
[2019-04-03] MEDS: cloNIDine HCL 0.1 MG TABLET PO PRN (11:19)
[2019-04-03] MEDS ORDERED: QUET200T4 PO (12:08)
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
--- NOTE | 2019-04-03 13:30 | NUR ---
Sameera from [facility] team here to assess pt.
--- NOTE | 2019-04-03 14:37 | NUR ---
Message sent to Dr. [place] re: Sameera's (PAT team) recommendations for pt's discharge.
--- NOTE | 2019-04-03 14:41 | NUR ---
Rachel RN nursing supervisor tumbling and rolling notified of pt's possible d/c plan per PAT team's recommendation to go to [facility] today.
--- NOTE | 2019-04-03 15:11 | PDOC ---
PROGRESS NOTES Assessment Problems Medical Problems: (1) Acute bronchitis with bronchospasm Status: Acute (2) Altered mental status Status: Acute (3) Dehydration Status: Acute (4) Septic shock Status: Acute Plan This patient presented to the emergency room with episode of confusion. Patient was noted to be hypertensive on arrival. Patient had improvement in symptoms. Patient currently denies any complaint of headache nausea or vomiting. Patient denies any difficulty speaking tingling numbness on the face. Patient has history of chronic neck discomfort. Patient denies any difficulty with gait or balance. This patient has past medical history of drug usage alcohol usage with the episode of confusion. Encephalopathy likely due to drug usage, alcohol usage patient has improvement in symptoms. Patient has history of bipolar disorder psychiatry recommendations. Patient did not have any new seizure activity. Patient has history of chronic neck discomfort. Patient had CT scan done on brain which was negative for acute intracranial etiology. No evidence of acute hemorrhage or mass. Changes noted for chronic small vessel ischemic disease. Patient had a CT scan done on the neck showing cervical spondylosis. neuro exam stable May benefit from pain management. He will follow up in neurology clinic. Subjective He is resting in bed he is feeling better. He slept better last night he denies any complaint of headache nausea and dizziness. Objective Vital Signs Date Time Temp Pulse Resp B/P (MAP) Pulse Ox O2 Delivery O2 Flow Rate FiO2 04/03/19 11:19 68 147/128 04/03/19 11:00 96.6 18 98 Room Air 96.6 Intake and Output 04/03/19 07:00 Intake Total 1670 ml Output Total 504 ml Balance 1166 ml Intake Oral 1670 ml Output Urine Total 504 ml # Voids 3 PHYSICAL EXAM General no acute distress. HEENT: Normocephalic and atraumatic. NECK: Supple without bruit Respiratory: Clear to auscultation bilaterally Heart: Regular rate and rhythm, S1S2 normal NEUROLOGIC: Mental status Alert oriented. Cranial nerve equally reactive pupils, and intact extraocular movements. No facial asymmetry. Palate elevates and tongue protrudes in midline. Reflexes are 1-2 with flexor plantar responses. Coordination no dysmetria Strength able to move all exts equally. Sensory exam is intact for light touch and pinprick. Gait in bed. Review of Relevant I have reviewed the following items pippa (where applicable) has been applied. Labs Laboratory Tests Test 04/02/19 05:30 04/03/19 04:03 White Blood Count 4.3 x10^3/uL (4.0-11.0) 4.7 x10^3/uL (4.0-11.0) Red Blood Count 3.99 x10^6/uL (4.30-5.70) 3.96 x10^6/uL (4.30-5.70) Hemoglobin 12.1 g/dL (13.0-17.5) 12.0 g/dL (13.0-17.5) Hematocrit 36.1 % (39.0-53.0) 35.7 % (39.0-53.0) Mean Corpuscular Volume 91 fL (79-100) 90 fL (79-100) Mean Corpuscular Hemoglobin 30 pg (25-35) 30 pg (25-35) Mean Corpuscular Hemoglobin Concent 34 g/dL (31-37) 34 g/dL (31-37) Red Cell Distribution Width 15.1 % (11.5-14.5) 14.8 % (11.5-14.5) Platelet Count 130 x10^3/uL (140-400) 137 x10^3/uL (140-400) Neutrophils (%) (Auto) 57 % (31-73) 54 % (31-73) Lymphocytes (%) (Auto) 27 % (24-48) 31 % (24-48) Monocytes (%) (Auto) 12 % (0-9) 11 % (0-9) Eosinophils (%) (Auto) 3 % (0-3) 3 % (0-3) Basophils (%) (Auto) 1 % (0-3) 1 % (0-3) Neutrophils # (Auto) 2.4 x10^3uL (1.8-7.7) 2.5 x10^3uL (1.8-7.7) Lymphocytes # (Auto) 1.2 x10^3/uL (1.0-4.8) 1.5 x10^3/uL (1.0-4.8) Monocytes # (Auto) 0.5 x10^3/uL (0.0-1.1) 0.5 x10^3/uL (0.0-1.1) Eosinophils # (Auto) 0.1 x10^3/uL (0.0-0.7) 0.1 x10^3/uL (0.0-0.7) Basophils # (Auto) 0.0 x10^3/uL (0.0-0.2) 0.0 x10^3/uL (0.0-0.2) Sodium Level 145 mmol/L (136-145) 144 mmol/L (136-145) Potassium Level 3.8 mmol/L (3.5-5.1) 3.5 mmol/L (3.5-5.1) Chloride Level 110 mmol/L (98-107) 109 mmol/L (98-107) Carbon Dioxide Level 26 mmol/L (21-32) 27 mmol/L (21-32) Anion Gap 9 (6-14) 8 (6-14) Blood Urea Nitrogen 10 mg/dL (8-26) 7 mg/dL (8-26) Creatinine 0.9 mg/dL (0.7-1.3) 1.0 mg/dL (0.7-1.3) Estimated GFR (Cockcroft-Gault) 89.0 78.8 Glucose Level 86 mg/dL (70-99) 111 mg/dL (70-99) Calcium Level 8.0 mg/dL (8.5-10.1) 8.2 mg/dL (8.5-10.1) Laboratory Tests Test 04/03/19 04:03 White Blood Count 4.7 x10^3/uL (4.0-11.0) Red Blood Count 3.96 x10^6/uL (4.30-5.70) Hemoglobin 12.0 g/dL (13.0-17.5) Hematocrit 35.7 % (39.0-53.0) Mean Corpuscular Volume 90 fL (79-100) Mean Corpuscular Hemoglobin 30 pg (25-35) Mean Corpuscular Hemoglobin Concent 34 g/dL (31-37) Red Cell Distribution Width 14.8 % (11.5-14.5) Platelet Count 137 x10^3/uL (140-400) Neutrophils (%) (Auto) 54 % (31-73) Lymphocytes (%) (Auto) 31 % (24-48) Monocytes (%) (Auto) 11 % (0-9) Eosinophils (%) (Auto) 3 % (0-3) Basophils (%) (Auto) 1 % (0-3) Neutrophils # (Auto) 2.5 x10^3uL (1.8-7.7) Lymphocytes # (Auto) 1.5 x10^3/uL (1.0-4.8) Monocytes # (Auto) 0.5 x10^3/uL (0.0-1.1) Eosinophils # (Auto) 0.1 x10^3/uL (0.0-0.7) Basophils # (Auto) 0.0 x10^3/uL (0.0-0.2) Sodium Level 144 mmol/L (136-145) Potassium Level 3.5 mmol/L (3.5-5.1) Chloride Level 109 mmol/L (98-107) Carbon Dioxide Level 27 mmol/L (21-32) Anion Gap 8 (6-14) Blood Urea Nitrogen 7 mg/dL (8-26) Creatinine 1.0 mg/dL (0.7-1.3) Estimated GFR (Cockcroft-Gault) 78.8 Glucose Level 111 mg/dL (70-99) Calcium Level 8.2 mg/dL (8.5-10.1) Microbiology 03/31/19 Blood Culture - Preliminary, Resulted NO GROWTH AFTER 3 DAYS 03/31/19 Urine Culture - Final, Complete 03/31/19 Urine Culture Result 1 (JAMES) - Final, Complete Medications Current Medications Ziprasidone (Geodon Im) 20 mg STK-MED ONCE IM ; Start 03/31/19 at 04:24; Stop 03/31/19 at 04:25; Status DC Sodium Chloride 1,000 ml @ 1,000 mls/hr 1X ONCE IV Last administered on 03/31/19at 04:49; Start 03/31/19 at 05:00; Stop 03/31/19 at 05:59; Status DC Ziprasidone (Geodon Im) 20 mg 1X ONCE IM Last administered on 03/31/19at 04:48; Start 03/31/19 at 05:00; Stop 03/31/19 at 05:01; Status DC Lorazepam (Ativan Inj) 2 mg 1X ONCE IV Last administered on 03/31/19at 04:49; Start 03/31/19 at 05:00; Stop 03/31/19 at 05:01; Status DC Haloperidol Lactate (Haldol Inj) 5 mg 1X ONCE IVP Last administered on 03/31/19at 04:49; Start 03/31/19 at 05:00; Stop 03/31/19 at 05:01; Status DC Acetaminophen/ Hydrocodone Bitart (Lortab 7.5/325) 1 tab 1X ONCE PO ; Start 03/31/19 at 06:00; Stop 03/31/19 at 06:01; Status Cancel Sodium Chloride 1,000 ml @ 150 mls/hr Q6H40M IV Last administered on 04/01/19at 01:40; Start 03/31/19 at 06:00; Stop 04/01/19 at 05:59; Status DC Sodium Chloride 1,000 ml @ 1,000 mls/hr 1X ONCE IV Last administered on 03/31/19at 06:21; Start 03/31/19 at 06:30; Stop 03/31/19 at 07:29; Status DC Sodium Chloride 1,000 ml @ 1,000 mls/hr 1X ONCE IV Last administered on 03/31/19at 07:00; Start 03/31/19 at 07:00; Stop 03/31/19 at 07:59; Status DC Piperacillin Sod/ Tazobactam Sod 4.5 gm/Sodium Chloride 100 ml @ 200 mls/hr 1X ONCE IV Last administered on 03/31/19at 07:26; Start 03/31/19 at 07:30; Stop 03/31/19 at 07:59; Status DC Vancomycin HCl 2 gm/Sodium Chloride 500 ml @ 250 mls/hr 1X ONCE IV Last administered on 03/31/19at 08:45; Start 03/31/19 at 07:30; Stop 03/31/19 at 09:29; Status DC Atorvastatin Calcium (Lipitor) 20 mg QHS PO Last administered on 04/02/19at 20:02; Start 03/31/19 at 21:00 Albuterol Sulfate (Ventolin Neb Soln) 2.5 mg PRN QID PRN NEB SHORTNESS OF BREATH; Start 03/31/19 at 14:45 Lorazepam (Ativan) 0.5 mg PRN Q8HRS PRN PO AGITATION Last administered on 04/03/19at 09:00; Start 03/31/19 at 14:15 Buspirone HCl (Buspar) 15 mg TID PO Last administered on 04/03/19at 14:04; Start 03/31/19 at 14:30 Duloxetine HCl (Cymbalta) 60 mg DAILY PO Last administered on 04/03/19at 08:56; Start 03/31/19 at 15:00 Quetiapine Fumarate (SEROquel) 200 mg QHS PO Last administered on 04/02/19at 20:02; Start 03/31/19 at 21:00 Ceftriaxone Sodium (Rocephin) 1 gm Q24H IVP Last administered on 03/31/19at 16:12; Start 03/31/19 at 16:00; Stop 04/01/19 at 15:01; Status DC Sodium Chloride 1,000 ml @ 2,550 mls/hr Q24M IV ; Start 03/31/19 at 15:11; Stop 03/31/19 at 16:11; Status DC Sodium Chloride 500 ml @ 1,000 mls/hr PRN Q30MIN PRN IV SEE COMMENTS; Start 03/31/19 at 15:15 Norepinephrine Bitartrate 250 ml @ 0 mls/hr CONT PRN IV SEE I/O RECORD; Start 03/31/19 at 15:15; Stop 04/01/19 at 13:52; Status DC Dobutamine HCl/ Dextrose 250 ml @ 0 mls/hr CONT PRN IV SEE I/O RECORD; Start 03/31/19 at 15:15; Stop 04/02/19 at 13:09; Status DC Multivitamins 10 ml/Thiamine HCl 100 mg/Folic Acid 1 mg/Sodium Chloride 1,011.2 ml @ 100 mls/ hr DAILY IV Last administered on 04/02/19at 10:22; Start 03/31/19 at 15:30; Stop 04/02/19 at 23:00; Status DC Multivitamins (Thera M Plus) 1 tab DAILY PO Last administered on 04/03/19at 08:56; Start 04/03/19 at 09:00 Folic Acid (Folic Acid) 1 mg DAILY PO Last administered on 04/03/19at 08:56; Start 04/03/19 at 09:00 Lorazepam (Ativan) 4 mg PRN Q1HR PRN PO For CIWA 8-14; Start 03/31/19 at 15:15 Lorazepam (Ativan Inj) 2 mg PRN Q1HR PRN IV For CIWA 8-14 Last administered on 04/02/19at 15:30; Start 03/31/19 at 15:15 Lorazepam (Ativan Inj) 4 mg PRN Q1HR PRN IV For CIWA 15 or greater; Start 03/31/19 at 15:15 Haloperidol Lactate (Haldol Inj) 5 mg PRN Q4HRS PRN IVP Hallucinatns,Confusn,Delirium; Start 03/31/19 at 15:15 Clonidine HCl (Catapres) 0.1 mg PRN Q1HR PRN PO SBP > 180 or DBP > 100, MRX3 Last administered on 04/03/19at 11:19; Start 03/31/19 at 15:15 Lorazepam (Ativan Inj) 2 mg PRN Q15MIN PRN IV SEE COMMENTS; Start 03/31/19 at 15:15; Stop 04/01/19 at 13:53; Status DC Lorazepam (Ativan Inj) 4 mg PRN Q15MIN PRN IV SEE COMMENTS; Start 03/31/19 at 15:15; Stop 04/01/19 at 13:53; Status DC Lactobacillus Rhamnosus (Culturelle) 1 cap BID PO Last administered on 04/03/19at 08:59; Start 04/01/19 at 21:00 Acetaminophen/ Hydrocodone Bitart (Lortab 7.5/325) 1 tab PRN Q6HRS PRN PO PAIN Last administered on 04/03/19at 07:37; Start 04/01/19 at 14:00 Tizanidine HCl (Zanaflex) 4 mg PRN Q8HRS PRN PO MUSCLE SPASMS Last administered on 04/03/19at 11:18; Start 04/01/19 at 16:15 Thiamine Mononitrate (Vitamin B-1) 100 mg DAILY PO Last administered on 04/03/19at 08:56; Start 04/03/19 at 09:00 Active Scripts Active Seroquel (Quetiapine Fumarate) 200 Mg Tablet 200 Mg PO HS Atorvastatin Calcium 20 Mg Tablet 1 Tab PO DAILY Reported Duoneb 0.5-3(2.5) Mg/3 Ml (Albuterol/Ipratropium) 3 Ml Ampul.neb 3 Ml NEB QIDPRN Diazepam 5 Mg Tablet 5 Mg PO TID Cymbalta (Duloxetine Hcl) 60 Mg Capsule.dr 60 Mg PO DAILY Cyclobenzaprine Hcl 10 Mg Tablet 1 Tab PO TID Buspirone Hcl 15 Mg Tablet 1 Tab PO TID Ativan (Lorazepam) 0.5 Mg Tablet 0.5 Mg PO PRN Q8HRS PRN Hydroxyzine Pamoate 50 Mg Capsule 1 Cap PO TID Vitals/I & O Vital Sign - Last 24 Hours 04/02/19 04/02/19 04/02/19 04/02/19 19:20 20:00 22:20 23:20 Temp 98.0 98.0 Pulse 65 Resp 18 20 20 B/P (MAP) 147/100 (116) Pulse Ox 98 98 96 O2 Delivery Room Air Room Air Room Air 04/02/19 04/03/19 04/03/19 04/03/19 23:20 02:54 07:00 07:15 Temp 98.0 97.7 97.5 98.0 97.7 97.5 Pulse 67 59 69 Resp 18 18 18 B/P (MAP) 147/93 (111) 137/107 (117) 151/87 (108) Pulse Ox 96 95 97 O2 Delivery Room Air Room Air Room Air Room Air 04/03/19 04/03/19 04/03/19 04/03/19 07:37 08:57 11:00 11:19 Temp 96.6 96.6 Pulse 68 68 Resp 18 B/P (MAP) 147/128 (134) 147/128 Pulse Ox 98 O2 Delivery Room Air Room Air Room Air Intake and Output 04/02/19 04/02/19 04/03/19 15:00 23:00 07:00 Intake Total 480 ml 450 ml 740 ml Output Total 504 ml Balance 480 ml -54 ml 740 ml ZULLY MARTÍNEZ MD April 03, 2019 15:11
--- NOTE | 2019-04-03 16:13 | NUR ---
Message send to Dr. Birmingham re: bed availabiltiy at [facility] per Sameera RYAN team. Sameera stated pt might be accepted tonight for transfer. FRANCESCA Ramos nursing field crop farming supervisor notified.
[2019-04-03] MEDS ORDERED: LORA0.5T96 PO (16:45)
--- NOTE | 2019-04-03 16:48 | SNU/HH DC ---
DISCHARGE ORDERS DISCHARGE INFORMATION: DISCHARGE DATE: April 03, 2019 FINAL DIAGNOSIS Problems Medical Problems: (1) Acute bronchitis with bronchospasm Status: Acute (2) Altered mental status Status: Acute (3) Dehydration Status: Acute (4) Septic shock Status: Acute CONDITION ON DISCHARGE: Stable CODE STATUS: Code Status: Full POST DISCHARGE ORDERS: ACTIVITY ORDERS: Activity as tolerated WEIGHT BEARING STATUS: As tolerated DIET AFTER DISCHARGE: Regular CHECKS AFTER DISCHARGE: CHECKS AFTER DISCHARGE: Check your Temp as needed, Weigh Yourself Daily FOLLOW-UP: PHYSICIAN FOLLOW-UP: Psychiatrist TREATMENT/EQUIPMENT ORDERS: ADAPTIVE EQUIPMENT NEEDED: None DISCHARGE MEDICATIONS: Home Meds Active Scripts Lorazepam (ATIVAN) 0.5 Mg Tablet, 0.5 MG PO PRN Q8HRS PRN for AGITATION for 6 Days, #18 TAB Prov:JENAE RUELAS MD 04/03/19 Quetiapine Fumarate (SEROQUEL) 200 Mg Tablet, 200 MG PO HS for mental, #30 TAB Prov:ABDULAZIZ MORSE MD 04/03/19 Atorvastatin Calcium (ATORVASTATIN CALCIUM) 20 Mg Tablet, 1 TAB PO DAILY for dyslipidemia, #30 TAB 5 Refills Prov:OSWALDO GAN MD 02/10/19 Reported Medications Ipratropium/Albuterol Sulfate (DUONEB 0.5-3(2.5) MG/3 ML) 3 Ml Ampul.neb, 3 ML NEB QIDPRN for COPD, EACH 03/31/19 Duloxetine Hcl (CYMBALTA) 60 Mg Capsule.dr, 60 MG PO DAILY for unknown, CAP 03/31/19 Cyclobenzaprine Hcl (CYCLOBENZAPRINE HCL) 10 Mg Tablet, 1 TAB PO TID for mental, #90 TAB 03/31/19 Buspirone Hcl (BUSPIRONE HCL) 15 Mg Tablet, 1 TAB PO TID for anxiety, #60 TAB 03/31/19 Hydroxyzine Pamoate (HYDROXYZINE PAMOATE) 50 Mg Capsule, 1 CAP PO TID for anxiety, #90 CAP 1 Refill 02/09/19 Discontinued Reported Medications Diazepam (DIAZEPAM) 5 Mg Tablet, 5 MG PO TID for mental, TAB 03/31/19 JENAE RUELAS MD April 03, 2019 16:48
[2019-04-03] MEDS: QUEtiapine 100 MG TABLET. PO SCH (21:10)
[2019-04-03] MEDS: ATORVASTATIN CALCIUM 20 MG TABLET PO SCH (21:10)
--- NOTE | 2019-04-03 22:30 | NUR ---
Cally Mott (case manager specialist at [facility]) called to get an update on patient status.
--- NOTE | 2019-04-03 23:35 | NUR ---
Sameera from PAT team called and said that [facility] declined the patient and that they will work on placement 04/04.
[2019-04-04 04:15] LABS: BASO % 1 % (0-3); EOS # 0.1 x10^3/uL (0.0-0.7); EOS % 2 % (0-3); HEMATOCRIT 36.4 % (39.0-53.0); HEMOGLOBIN 12.2 g/dL (13.0-17.5); LYMPH # 1.7 x10^3/uL (1.0-4.8); LYMPH % 31 % (24-48); MEAN CORPUSCULAR HEMOGLOBIN 30 pg (25-35); MEAN CORPUSCULAR HGB CONC 34 g/dL (31-37); MEAN CORPUSCULAR VOLUME 90 fL (79-100); MONO # 0.6 x10^3/uL (0.0-1.1); MONO % 11 % (0-9); NEUT % 55 % (31-73); PLATELET COUNT 151 x10^3/uL (140-400); RED BLOOD COUNT 4.05 x10^6/uL (4.30-5.70); RED CELL DISTRIBUTION WIDTH 14.8 % (11.5-14.5); WHITE BLOOD COUNT 5.4 x10^3/uL (4.0-11.0)
[2019-04-04 04:44] LABS: CALCIUM 8.5 mg/dL (8.5-10.1); GFR 78.8; POTASSIUM 3.5 mmol/L (3.5-5.1)
[2019-04-04 07:00] VITALS: BP 136/87
[2019-04-04] MEDS: LACTOBACILLUS RHAMNOSUS GG 1 CAPSULE. PO SCH ×2 (08:24→20:12)
[2019-04-04] MEDS: THIAMINE 100 MG TABLET. PO SCH (08:24)
[2019-04-04] MEDS: MULTIVITAMIN with MINERAL TABLET. PO SCH (08:24)
[2019-04-04] MEDS: FOLIC ACID 1 MG TABLET. PO SCH (08:25)
[2019-04-04] MEDS: LORazepam 0.5 MG TABLET PO PRN ×2 (08:25→19:48)
[2019-04-04] MEDS: busPIRone 5 MG TABLET. PO SCH ×3 (08:25→20:11)
[2019-04-04] MEDS: DULoxetine HCL 30 MG CAPSULE.DR PO SCH (08:25)
--- NOTE | 2019-04-04 09:07 | PDOC ---
Infectious Disease Note Subjective: Subjective pt says doing ok some headache but improving upset as he had to have lab draw today ROS: ROS Negative except for above. Vital Signs: Vital Signs Vital Signs Date Time Temp Pulse Resp B/P (MAP) Pulse Ox O2 Delivery O2 Flow Rate FiO2 04/04/19 07:10 Room Air 04/04/19 07:00 97.8 63 20 136/87 (103) 95 97.8 Physical Exam: PHYSICAL EXAM HEENT: no icterus NECK: Supple. No JVP, no lymphadenopathy. LUNGS: Clear. HEART: S1 and S2 regular. ABDOMEN: Benign. EXTREMITIES: No edema or cyanosis. SKIN EXAMINATION: Unremarkable. NEUROLOGIC: The patient is neurologically alert, awake and appropriate. No focal neurologic deficits. Medications: Inpatient Meds: Current Medications Medications (Trade) Dose Ordered Sig/Diann Start Time Stop Time Status Last Admin Dose Admin Acetaminophen/ Hydrocodone Bitart (Lortab 7.5/325) 1 tab PRN Q6HRS PRN 04/01/19 14:00 04/03/19 19:33 1 TAB Albuterol Sulfate (Ventolin Neb Soln) 2.5 mg PRN QID PRN 03/31/19 14:45 Atorvastatin Calcium (Lipitor) 20 mg QHS 03/31/19 21:00 04/03/19 21:10 20 MG Buspirone HCl (Buspar) 15 mg TID 03/31/19 14:30 04/04/19 08:25 15 MG Ceftriaxone Sodium (Rocephin) 1 gm Q24H 03/31/19 16:00 04/01/19 15:01 DC 03/31/19 16:12 1 GM Clonidine HCl (Catapres) 0.1 mg PRN Q1HR PRN 03/31/19 15:15 04/03/19 11:19 0.1 MG Dobutamine HCl/ Dextrose 250 ml @ 0 mls/hr CONT PRN 03/31/19 15:15 04/02/19 13:09 DC Duloxetine HCl (Cymbalta) 60 mg DAILY 03/31/19 15:00 04/04/19 08:25 60 MG Folic Acid (Folic Acid) 1 mg DAILY 04/03/19 09:00 04/04/19 08:25 1 MG Haloperidol Lactate (Haldol Inj) 5 mg PRN Q4HRS PRN 03/31/19 15:15 Lactobacillus Rhamnosus (Culturelle) 1 cap BID 04/01/19 21:00 04/04/19 08:24 1 CAP Lorazepam (Ativan Inj) 4 mg PRN Q15MIN PRN 03/31/19 15:15 04/01/19 13:53 DC Lorazepam (Ativan) 4 mg PRN Q1HR PRN 03/31/19 15:15 Multivitamins (Thera M Plus) 1 tab DAILY 04/03/19 09:00 04/04/19 08:24 1 TAB Multivitamins 10 ml/Thiamine HCl 100 mg/Folic Acid 1 mg/Sodium Chloride 1,011.2 ml @ 100 mls/ hr DAILY 03/31/19 15:30 04/02/19 23:00 DC 04/02/19 10:22 100 MLS/HR Norepinephrine Bitartrate 250 ml @ 0 mls/hr CONT PRN 03/31/19 15:15 04/01/19 13:52 DC Piperacillin Sod/ Tazobactam Sod 4.5 gm/Sodium Chloride 100 ml @ 200 mls/hr 1X ONCE 03/31/19 07:30 03/31/19 07:59 DC 03/31/19 07:26 200 MLS/HR Quetiapine Fumarate (SEROquel) 200 mg QHS 03/31/19 21:00 04/03/19 21:10 200 MG Sodium Chloride 500 ml @ 1,000 mls/hr PRN Q30MIN PRN 03/31/19 15:15 Thiamine Mononitrate (Vitamin B-1) 100 mg DAILY 04/03/19 09:00 04/04/19 08:24 100 MG Tizanidine HCl (Zanaflex) 4 mg PRN Q8HRS PRN 04/01/19 16:15 04/03/19 11:18 4 MG Vancomycin HCl 2 gm/Sodium Chloride 500 ml @ 250 mls/hr 1X ONCE 03/31/19 07:30 03/31/19 09:29 DC 03/31/19 08:45 250 MLS/HR Ziprasidone (Geodon Im) 20 mg 1X ONCE 03/31/19 05:00 03/31/19 05:01 DC 03/31/19 04:48 20 MG Labs: Lab Laboratory Tests Test 04/04/19 04:00 White Blood Count 5.4 x10^3/uL (4.0-11.0) Red Blood Count 4.05 x10^6/uL (4.30-5.70) Hemoglobin 12.2 g/dL (13.0-17.5) Hematocrit 36.4 % (39.0-53.0) Mean Corpuscular Volume 90 fL (79-100) Mean Corpuscular Hemoglobin 30 pg (25-35) Mean Corpuscular Hemoglobin Concent 34 g/dL (31-37) Red Cell Distribution Width 14.8 % (11.5-14.5) Platelet Count 151 x10^3/uL (140-400) Neutrophils (%) (Auto) 55 % (31-73) Lymphocytes (%) (Auto) 31 % (24-48) Monocytes (%) (Auto) 11 % (0-9) Eosinophils (%) (Auto) 2 % (0-3) Basophils (%) (Auto) 1 % (0-3) Neutrophils # (Auto) 3.0 x10^3uL (1.8-7.7) Lymphocytes # (Auto) 1.7 x10^3/uL (1.0-4.8) Monocytes # (Auto) 0.6 x10^3/uL (0.0-1.1) Eosinophils # (Auto) 0.1 x10^3/uL (0.0-0.7) Basophils # (Auto) 0.0 x10^3/uL (0.0-0.2) Sodium Level 144 mmol/L (136-145) Potassium Level 3.5 mmol/L (3.5-5.1) Chloride Level 108 mmol/L (98-107) Carbon Dioxide Level 29 mmol/L (21-32) Anion Gap 7 (6-14) Blood Urea Nitrogen 10 mg/dL (8-26) Creatinine 1.0 mg/dL (0.7-1.3) Estimated GFR (Cockcroft-Gault) 78.8 Glucose Level 102 mg/dL (70-99) Calcium Level 8.5 mg/dL (8.5-10.1) Objective: Assessment: 1. Encephalopathy secondary to alcohol and drugs. 2. Lactic acidosis secondary to the agitation. 3. Bipolar disorder. 4. Anxiety disorder. 5. Chronic obstructive pulmonary disease. 6. Leukocytosis, reactive. Plan: Plan of Care Monitor off antibiotics Continue supportive care and Pt is awaiting placement d/w YAIR EDWARDS MD April 04, 2019 09:07
--- NOTE | 2019-04-04 10:07 | NUR ---
Spoke with TETE Reddy, she stated she would contact PAT team re: plan for discharge today.
[2019-04-04 11:00] VITALS: BP 148/95
--- NOTE | 2019-04-04 11:03 | NUR ---
TETE following for discharge planning. Discussed with RN, as of yesterday pt was denied transfer to [facility]. TETE spoke with Judy RYAN team for discharge planning, Ricardo will come to see pt again today and they will try find placement for pt elsewhere. TETE will continue to follow. RN notified.
--- NOTE | 2019-04-04 11:53 | PDOC ---
PROGRESS NOTES Chief Complaint Chief Complaint acute drug induced delirium Meth abuse Alcohol abuse, severe Cannabinoid abuse psychomotor agitation History of bipolar disorder COPD Tobacco abuse with greater than [id number] history of smoking Severe osteoarthritis History of Present Illness History of Present Illness depressed tried to DC to psych facility yesterday, unsure why he is still here, was tearful, dispondent, poss SI no sign of any withdrawl today Vitals Vitals Vital Signs Date Time Temp Pulse Resp B/P (MAP) Pulse Ox O2 Delivery O2 Flow Rate FiO2 04/04/19 07:10 Room Air 04/04/19 07:00 97.8 63 20 136/87 (103) 95 97.8 Physical Exam Physical Exam HEENT: no icterus NECK: Supple. No JVP, no lymphadenopathy. LUNGS: Clear. HEART: S1 and S2 regular. ABDOMEN: Benign. EXTREMITIES: No edema or cyanosis. SKIN EXAMINATION: Unremarkable. NEUROLOGIC: The patient is neurologically alert, awake and appropriate. No focal neurologic deficits. General: Alert, Oriented X3, Cooperative, mild distress Heart: Regular rate, Normal S1 Lungs: Clear Abdomen: Normal bowel sounds, Soft Extremities: No clubbing, No cyanosis Skin: No breakdown, No significant lesion Labs LABS Laboratory Tests Test 04/04/19 04:00 White Blood Count 5.4 x10^3/uL (4.0-11.0) Red Blood Count 4.05 x10^6/uL (4.30-5.70) Hemoglobin 12.2 g/dL (13.0-17.5) Hematocrit 36.4 % (39.0-53.0) Mean Corpuscular Volume 90 fL (79-100) Mean Corpuscular Hemoglobin 30 pg (25-35) Mean Corpuscular Hemoglobin Concent 34 g/dL (31-37) Red Cell Distribution Width 14.8 % (11.5-14.5) Platelet Count 151 x10^3/uL (140-400) Neutrophils (%) (Auto) 55 % (31-73) Lymphocytes (%) (Auto) 31 % (24-48) Monocytes (%) (Auto) 11 % (0-9) Eosinophils (%) (Auto) 2 % (0-3) Basophils (%) (Auto) 1 % (0-3) Neutrophils # (Auto) 3.0 x10^3uL (1.8-7.7) Lymphocytes # (Auto) 1.7 x10^3/uL (1.0-4.8) Monocytes # (Auto) 0.6 x10^3/uL (0.0-1.1) Eosinophils # (Auto) 0.1 x10^3/uL (0.0-0.7) Basophils # (Auto) 0.0 x10^3/uL (0.0-0.2) Sodium Level 144 mmol/L (136-145) Potassium Level 3.5 mmol/L (3.5-5.1) Chloride Level 108 mmol/L (98-107) Carbon Dioxide Level 29 mmol/L (21-32) Anion Gap 7 (6-14) Blood Urea Nitrogen 10 mg/dL (8-26) Creatinine 1.0 mg/dL (0.7-1.3) Estimated GFR (Cockcroft-Gault) 78.8 Glucose Level 102 mg/dL (70-99) Calcium Level 8.5 mg/dL (8.5-10.1) Assessment and Plan Assessmemt and Plan Problems Medical Problems: (1) Acute bronchitis with bronchospasm Status: Acute (2) Altered mental status Status: Acute (3) Dehydration Status: Acute (4) Septic shock Status: Acute Comment Review of Relevant I have reviewed the following items pippa (where applicable) has been applied. Labs Laboratory Tests Test 04/03/19 04:03 04/04/19 04:00 White Blood Count 4.7 x10^3/uL (4.0-11.0) 5.4 x10^3/uL (4.0-11.0) Red Blood Count 3.96 x10^6/uL (4.30-5.70) 4.05 x10^6/uL (4.30-5.70) Hemoglobin 12.0 g/dL (13.0-17.5) 12.2 g/dL (13.0-17.5) Hematocrit 35.7 % (39.0-53.0) 36.4 % (39.0-53.0) Mean Corpuscular Volume 90 fL (79-100) 90 fL (79-100) Mean Corpuscular Hemoglobin 30 pg (25-35) 30 pg (25-35) Mean Corpuscular Hemoglobin Concent 34 g/dL (31-37) 34 g/dL (31-37) Red Cell Distribution Width 14.8 % (11.5-14.5) 14.8 % (11.5-14.5) Platelet Count 137 x10^3/uL (140-400) 151 x10^3/uL (140-400) Neutrophils (%) (Auto) 54 % (31-73) 55 % (31-73) Lymphocytes (%) (Auto) 31 % (24-48) 31 % (24-48) Monocytes (%) (Auto) 11 % (0-9) 11 % (0-9) Eosinophils (%) (Auto) 3 % (0-3) 2 % (0-3) Basophils (%) (Auto) 1 % (0-3) 1 % (0-3) Neutrophils # (Auto) 2.5 x10^3uL (1.8-7.7) 3.0 x10^3uL (1.8-7.7) Lymphocytes # (Auto) 1.5 x10^3/uL (1.0-4.8) 1.7 x10^3/uL (1.0-4.8) Monocytes # (Auto) 0.5 x10^3/uL (0.0-1.1) 0.6 x10^3/uL (0.0-1.1) Eosinophils # (Auto) 0.1 x10^3/uL (0.0-0.7) 0.1 x10^3/uL (0.0-0.7) Basophils # (Auto) 0.0 x10^3/uL (0.0-0.2) 0.0 x10^3/uL (0.0-0.2) Sodium Level 144 mmol/L (136-145) 144 mmol/L (136-145) Potassium Level 3.5 mmol/L (3.5-5.1) 3.5 mmol/L (3.5-5.1) Chloride Level 109 mmol/L (98-107) 108 mmol/L (98-107) Carbon Dioxide Level 27 mmol/L (21-32) 29 mmol/L (21-32) Anion Gap 8 (6-14) 7 (6-14) Blood Urea Nitrogen 7 mg/dL (8-26) 10 mg/dL (8-26) Creatinine 1.0 mg/dL (0.7-1.3) 1.0 mg/dL (0.7-1.3) Estimated GFR (Cockcroft-Gault) 78.8 78.8 Glucose Level 111 mg/dL (70-99) 102 mg/dL (70-99) Calcium Level 8.2 mg/dL (8.5-10.1) 8.5 mg/dL (8.5-10.1) Laboratory Tests Test 04/04/19 04:00 White Blood Count 5.4 x10^3/uL (4.0-11.0) Red Blood Count 4.05 x10^6/uL (4.30-5.70) Hemoglobin 12.2 g/dL (13.0-17.5) Hematocrit 36.4 % (39.0-53.0) Mean Corpuscular Volume 90 fL (79-100) Mean Corpuscular Hemoglobin 30 pg (25-35) Mean Corpuscular Hemoglobin Concent 34 g/dL (31-37) Red Cell Distribution Width 14.8 % (11.5-14.5) Platelet Count 151 x10^3/uL (140-400) Neutrophils (%) (Auto) 55 % (31-73) Lymphocytes (%) (Auto) 31 % (24-48) Monocytes (%) (Auto) 11 % (0-9) Eosinophils (%) (Auto) 2 % (0-3) Basophils (%) (Auto) 1 % (0-3) Neutrophils # (Auto) 3.0 x10^3uL (1.8-7.7) Lymphocytes # (Auto) 1.7 x10^3/uL (1.0-4.8) Monocytes # (Auto) 0.6 x10^3/uL (0.0-1.1) Eosinophils # (Auto) 0.1 x10^3/uL (0.0-0.7) Basophils # (Auto) 0.0 x10^3/uL (0.0-0.2) Sodium Level 144 mmol/L (136-145) Potassium Level 3.5 mmol/L (3.5-5.1) Chloride Level 108 mmol/L (98-107) Carbon Dioxide Level 29 mmol/L (21-32) Anion Gap 7 (6-14) Blood Urea Nitrogen 10 mg/dL (8-26) Creatinine 1.0 mg/dL (0.7-1.3) Estimated GFR (Cockcroft-Gault) 78.8 Glucose Level 102 mg/dL (70-99) Calcium Level 8.5 mg/dL (8.5-10.1) Microbiology 03/31/19 Blood Culture - Preliminary, Resulted NO GROWTH AFTER 4 DAYS 03/31/19 Urine Culture - Final, Complete 03/31/19 Urine Culture Result 1 (JAMES) - Final, Complete Medications Current Medications Ziprasidone (Geodon Im) 20 mg STK-MED ONCE IM ; Start 03/31/19 at 04:24; Stop 03/31/19 at 04:25; Status DC Sodium Chloride 1,000 ml @ 1,000 mls/hr 1X ONCE IV Last administered on 03/31/19at 04:49; Start 03/31/19 at 05:00; Stop 03/31/19 at 05:59; Status DC Ziprasidone (Geodon Im) 20 mg 1X ONCE IM Last administered on 03/31/19at 04:48; Start 03/31/19 at 05:00; Stop 03/31/19 at 05:01; Status DC Lorazepam (Ativan Inj) 2 mg 1X ONCE IV Last administered on 03/31/19at 04:49; Start 03/31/19 at 05:00; Stop 03/31/19 at 05:01; Status DC Haloperidol Lactate (Haldol Inj) 5 mg 1X ONCE IVP Last administered on 03/31/19at 04:49; Start 03/31/19 at 05:00; Stop 03/31/19 at 05:01; Status DC Acetaminophen/ Hydrocodone Bitart (Lortab 7.5/325) 1 tab 1X ONCE PO ; Start 03/31/19 at 06:00; Stop 03/31/19 at 06:01; Status Cancel Sodium Chloride 1,000 ml @ 150 mls/hr Q6H40M IV Last administered on 04/01/19at 01:40; Start 03/31/19 at 06:00; Stop 04/01/19 at 05:59; Status DC Sodium Chloride 1,000 ml @ 1,000 mls/hr 1X ONCE IV Last administered on 03/31/19at 06:21; Start 03/31/19 at 06:30; Stop 03/31/19 at 07:29; Status DC Sodium Chloride 1,000 ml @ 1,000 mls/hr 1X ONCE IV Last administered on 03/31/19at 07:00; Start 03/31/19 at 07:00; Stop 03/31/19 at 07:59; Status DC Piperacillin Sod/ Tazobactam Sod 4.5 gm/Sodium Chloride 100 ml @ 200 mls/hr 1X ONCE IV Last administered on 03/31/19at 07:26; Start 03/31/19 at 07:30; Stop 03/31/19 at 07:59; Status DC Vancomycin HCl 2 gm/Sodium Chloride 500 ml @ 250 mls/hr 1X ONCE IV Last administered on 03/31/19at 08:45; Start 03/31/19 at 07:30; Stop 03/31/19 at 09:29; Status DC Atorvastatin Calcium (Lipitor) 20 mg QHS PO Last administered on 04/03/19at 21:10; Start 03/31/19 at 21:00 Albuterol Sulfate (Ventolin Neb Soln) 2.5 mg PRN QID PRN NEB SHORTNESS OF BREATH; Start 03/31/19 at 14:45 Lorazepam (Ativan) 0.5 mg PRN Q8HRS PRN PO AGITATION Last administered on 04/04/19at 08:25; Start 03/31/19 at 14:15 Buspirone HCl (Buspar) 15 mg TID PO Last administered on 04/04/19at 08:25; Start 03/31/19 at 14:30 Duloxetine HCl (Cymbalta) 60 mg DAILY PO Last administered on 04/04/19at 08:25; Start 03/31/19 at 15:00 Quetiapine Fumarate (SEROquel) 200 mg QHS PO Last administered on 04/03/19 21:10; Start 03/31/19 at 21:00 Ceftriaxone Sodium (Rocephin) 1 gm Q24H IVP Last administered on 03/31/19at 16:12; Start 03/31/19 at 16:00; Stop 04/01/19 at 15:01; Status DC Sodium Chloride 1,000 ml @ 2,550 mls/hr Q24M IV ; Start 03/31/19 at 15:11; Stop 03/31/19 at 16:11; Status DC Sodium Chloride 500 ml @ 1,000 mls/hr PRN Q30MIN PRN IV SEE COMMENTS; Start 03/31/19 at 15:15 Norepinephrine Bitartrate 250 ml @ 0 mls/hr CONT PRN IV SEE I/O RECORD; Start 03/31/19 at 15:15; Stop 04/01/19 at 13:52; Status DC Dobutamine HCl/ Dextrose 250 ml @ 0 mls/hr CONT PRN IV SEE I/O RECORD; Start 03/31/19 at 15:15; Stop 04/02/19 at 13:09; Status DC Multivitamins 10 ml/Thiamine HCl 100 mg/Folic Acid 1 mg/Sodium Chloride 1,011.2 ml @ 100 mls/ hr DAILY IV Last administered on 04/02/19at 10:22; Start 03/31/19 at 15:30; Stop 04/02/19 at 23:00; Status DC Multivitamins (Thera M Plus) 1 tab DAILY PO Last administered on 04/04/19at 08:24; Start 04/03/19 at 09:00 Folic Acid (Folic Acid) 1 mg DAILY PO Last administered on 04/04/19at 08:25; Start 04/03/19 at 09:00 Lorazepam (Ativan) 4 mg PRN Q1HR PRN PO For CIWA 8-14; Start 03/31/19 at 15:15 Lorazepam (Ativan Inj) 2 mg PRN Q1HR PRN IV For CIWA 8-14 Last administered on 04/02/19at 15:30; Start 03/31/19 at 15:15 Lorazepam (Ativan Inj) 4 mg PRN Q1HR PRN IV For CIWA 15 or greater; Start 03/31/19 at 15:15 Haloperidol Lactate (Haldol Inj) 5 mg PRN Q4HRS PRN IVP Hallucinatns,Confusn,Delirium; Start 03/31/19 at 15:15 Clonidine HCl (Catapres) 0.1 mg PRN Q1HR PRN PO SBP > 180 or DBP > 100, MRX3 Last administered on 04/03/19at 11:19; Start 03/31/19 at 15:15 Lorazepam (Ativan Inj) 2 mg PRN Q15MIN PRN IV SEE COMMENTS; Start 03/31/19 at 15:15; Stop 04/01/19 at 13:53; Status DC Lorazepam (Ativan Inj) 4 mg PRN Q15MIN PRN IV SEE COMMENTS; Start 03/31/19 at 15:15; Stop 04/01/19 at 13:53; Status DC Lactobacillus Rhamnosus (Culturelle) 1 cap BID PO Last administered on 04/04/19at 08:24; Start 04/01/19 at 21:00 Acetaminophen/ Hydrocodone Bitart (Lortab 7.5/325) 1 tab PRN Q6HRS PRN PO PAIN Last administered on 04/03/19at 19:33; Start 04/01/19 at 14:00 Tizanidine HCl (Zanaflex) 4 mg PRN Q8HRS PRN PO MUSCLE SPASMS Last administered on 04/03/19at 11:18; Start 04/01/19 at 16:15 Thiamine Mononitrate (Vitamin B-1) 100 mg DAILY PO Last administered on 04/04/19at 08:24; Start 04/03/19 at 09:00 Active Scripts Active Ativan (Lorazepam) 0.5 Mg Tablet 0.5 Mg PO PRN Q8HRS PRN 6 Days Seroquel (Quetiapine Fumarate) 200 Mg Tablet 200 Mg PO HS Atorvastatin Calcium 20 Mg Tablet 1 Tab PO DAILY Reported Duoneb 0.5-3(2.5) Mg/3 Ml (Albuterol/Ipratropium) 3 Ml Ampul.neb 3 Ml NEB QIDPRN Cymbalta (Duloxetine Hcl) 60 Mg Capsule.dr 60 Mg PO DAILY Cyclobenzaprine Hcl 10 Mg Tablet 1 Tab PO TID Buspirone Hcl 15 Mg Tablet 1 Tab PO TID Hydroxyzine Pamoate 50 Mg Capsule 1 Cap PO TID Vitals/I & O Vital Sign - Last 24 Hours 04/03/19 04/03/19 04/03/19 04/03/19 15:00 19:30 19:33 19:35 Temp 97.9 98.5 97.9 98.5 Pulse 63 56 Resp 18 16 B/P (MAP) 155/80 (105) 158/96 (116) Pulse Ox 98 95 O2 Delivery Room Air Room Air Room Air Room Air 04/03/19 04/03/19 04/04/19/28/19 20:33 23:18 07:00 07:10 Temp 98.1 97.8 98.1 97.8 Pulse 99 63 Resp 18 20 B/P (MAP) 130/81 (97) 136/87 (103) Pulse Ox 95 95 O2 Delivery Room Air Room Air Room Air Room Air ABDULAZIZ MORSE MD April 04, 2019 11:53
--- NOTE | 2019-04-04 11:53 | PDOC ---
PROGRESS NOTES Assessment Problems Medical Problems: (1) Acute bronchitis with bronchospasm Status: Acute (2) Altered mental status Status: Acute (3) Dehydration Status: Acute (4) Septic shock Status: Acute Toxic encephalopathy, drug abuse, Urine positive for cannabinoids, amphetamine, alcohol Chronic neck pain, has cervical spondylosis not requiring any immediate surgical intervention Plan Inpatient psychiatry stay per psychiatric assessment team Follow-up with neurology as needed Subjective Complains of chronic neck pain Objective Vital Signs Date Time Temp Pulse Resp B/P (MAP) Pulse Ox O2 Delivery O2 Flow Rate FiO2 04/04/19 07:10 Room Air 04/04/19 07:00 97.8 63 20 136/87 (103) 95 97.8 Intake and Output 04/04/19 07:00 # Voids 3 PHYSICAL EXAM Alert. Oriented to time, place and person. PERRL. EOMI. CN: no focal findings. Muscle tone: normal. Muscle strength: 5/5 DTR: 2+ Plantar reflex: flexor Gait: not examined in bed. Sensory exam: no abnormal findings. No cerebellar signs elicited. Review of Relevant I have reviewed the following items pippa (where applicable) has been applied. Labs Laboratory Tests Test 04/03/19 04:03 04/04/19 04:00 White Blood Count 4.7 x10^3/uL (4.0-11.0) 5.4 x10^3/uL (4.0-11.0) Red Blood Count 3.96 x10^6/uL (4.30-5.70) 4.05 x10^6/uL (4.30-5.70) Hemoglobin 12.0 g/dL (13.0-17.5) 12.2 g/dL (13.0-17.5) Hematocrit 35.7 % (39.0-53.0) 36.4 % (39.0-53.0) Mean Corpuscular Volume 90 fL (79-100) 90 fL (79-100) Mean Corpuscular Hemoglobin 30 pg (25-35) 30 pg (25-35) Mean Corpuscular Hemoglobin Concent 34 g/dL (31-37) 34 g/dL (31-37) Red Cell Distribution Width 14.8 % (11.5-14.5) 14.8 % (11.5-14.5) Platelet Count 137 x10^3/uL (140-400) 151 x10^3/uL (140-400) Neutrophils (%) (Auto) 54 % (31-73) 55 % (31-73) Lymphocytes (%) (Auto) 31 % (24-48) 31 % (24-48) Monocytes (%) (Auto) 11 % (0-9) 11 % (0-9) Eosinophils (%) (Auto) 3 % (0-3) 2 % (0-3) Basophils (%) (Auto) 1 % (0-3) 1 % (0-3) Neutrophils # (Auto) 2.5 x10^3uL (1.8-7.7) 3.0 x10^3uL (1.8-7.7) Lymphocytes # (Auto) 1.5 x10^3/uL (1.0-4.8) 1.7 x10^3/uL (1.0-4.8) Monocytes # (Auto) 0.5 x10^3/uL (0.0-1.1) 0.6 x10^3/uL (0.0-1.1) Eosinophils # (Auto) 0.1 x10^3/uL (0.0-0.7) 0.1 x10^3/uL (0.0-0.7) Basophils # (Auto) 0.0 x10^3/uL (0.0-0.2) 0.0 x10^3/uL (0.0-0.2) Sodium Level 144 mmol/L (136-145) 144 mmol/L (136-145) Potassium Level 3.5 mmol/L (3.5-5.1) 3.5 mmol/L (3.5-5.1) Chloride Level 109 mmol/L (98-107) 108 mmol/L (98-107) Carbon Dioxide Level 27 mmol/L (21-32) 29 mmol/L (21-32) Anion Gap 8 (6-14) 7 (6-14) Blood Urea Nitrogen 7 mg/dL (8-26) 10 mg/dL (8-26) Creatinine 1.0 mg/dL (0.7-1.3) 1.0 mg/dL (0.7-1.3) Estimated GFR (Cockcroft-Gault) 78.8 78.8 Glucose Level 111 mg/dL (70-99) 102 mg/dL (70-99) Calcium Level 8.2 mg/dL (8.5-10.1) 8.5 mg/dL (8.5-10.1) Laboratory Tests Test 04/04/19 04:00 White Blood Count 5.4 x10^3/uL (4.0-11.0) Red Blood Count 4.05 x10^6/uL (4.30-5.70) Hemoglobin 12.2 g/dL (13.0-17.5) Hematocrit 36.4 % (39.0-53.0) Mean Corpuscular Volume 90 fL (79-100) Mean Corpuscular Hemoglobin 30 pg (25-35) Mean Corpuscular Hemoglobin Concent 34 g/dL (31-37) Red Cell Distribution Width 14.8 % (11.5-14.5) Platelet Count 151 x10^3/uL (140-400) Neutrophils (%) (Auto) 55 % (31-73) Lymphocytes (%) (Auto) 31 % (24-48) Monocytes (%) (Auto) 11 % (0-9) Eosinophils (%) (Auto) 2 % (0-3) Basophils (%) (Auto) 1 % (0-3) Neutrophils # (Auto) 3.0 x10^3uL (1.8-7.7) Lymphocytes # (Auto) 1.7 x10^3/uL (1.0-4.8) Monocytes # (Auto) 0.6 x10^3/uL (0.0-1.1) Eosinophils # (Auto) 0.1 x10^3/uL (0.0-0.7) Basophils # (Auto) 0.0 x10^3/uL (0.0-0.2) Sodium Level 144 mmol/L (136-145) Potassium Level 3.5 mmol/L (3.5-5.1) Chloride Level 108 mmol/L (98-107) Carbon Dioxide Level 29 mmol/L (21-32) Anion Gap 7 (6-14) Blood Urea Nitrogen 10 mg/dL (8-26) Creatinine 1.0 mg/dL (0.7-1.3) Estimated GFR (Cockcroft-Gault) 78.8 Glucose Level 102 mg/dL (70-99) Calcium Level 8.5 mg/dL (8.5-10.1) Microbiology 03/31/19 Blood Culture - Preliminary, Resulted NO GROWTH AFTER 4 DAYS 03/31/19 Urine Culture - Final, Complete 03/31/19 Urine Culture Result 1 (JAMES) - Final, Complete Medications Current Medications Ziprasidone (Geodon Im) 20 mg STK-MED ONCE IM ; Start 03/31/19 at 04:24; Stop 03/31/19 at 04:25; Status DC Sodium Chloride 1,000 ml @ 1,000 mls/hr 1X ONCE IV Last administered on 03/31/19at 04:49; Start 03/31/19 at 05:00; Stop 03/31/19 at 05:59; Status DC Ziprasidone (Geodon Im) 20 mg 1X ONCE IM Last administered on 03/31/19at 04:48; Start 03/31/19 at 05:00; Stop 03/31/19 at 05:01; Status DC Lorazepam (Ativan Inj) 2 mg 1X ONCE IV Last administered on 03/31/19at 04:49; Start 03/31/19 at 05:00; Stop 03/31/19 at 05:01; Status DC Haloperidol Lactate (Haldol Inj) 5 mg 1X ONCE IVP Last administered on 03/31/19at 04:49; Start 03/31/19 at 05:00; Stop 03/31/19 at 05:01; Status DC Acetaminophen/ Hydrocodone Bitart (Lortab 7.5/325) 1 tab 1X ONCE PO ; Start 03/31/19 at 06:00; Stop 03/31/19 at 06:01; Status Cancel Sodium Chloride 1,000 ml @ 150 mls/hr Q6H40M IV Last administered on 04/01/19at 01:40; Start 03/31/19 at 06:00; Stop 04/01/19 at 05:59; Status DC Sodium Chloride 1,000 ml @ 1,000 mls/hr 1X ONCE IV Last administered on 03/31/19at 06:21; Start 03/31/19 at 06:30; Stop 03/31/19 at 07:29; Status DC Sodium Chloride 1,000 ml @ 1,000 mls/hr 1X ONCE IV Last administered on 03/31/19at 07:00; Start 03/31/19 at 07:00; Stop 03/31/19 at 07:59; Status DC Piperacillin Sod/ Tazobactam Sod 4.5 gm/Sodium Chloride 100 ml @ 200 mls/hr 1X ONCE IV Last administered on 03/31/19at 07:26; Start 03/31/19 at 07:30; Stop 03/31/19 at 07:59; Status DC Vancomycin HCl 2 gm/Sodium Chloride 500 ml @ 250 mls/hr 1X ONCE IV Last administered on 03/31/19at 08:45; Start 03/31/19 at 07:30; Stop 03/31/19 at 09:29; Status DC Atorvastatin Calcium (Lipitor) 20 mg QHS PO Last administered on 04/03/19at 21:10; Start 03/31/19 at 21:00 Albuterol Sulfate (Ventolin Neb Soln) 2.5 mg PRN QID PRN NEB SHORTNESS OF BREATH; Start 03/31/19 at 14:45 Lorazepam (Ativan) 0.5 mg PRN Q8HRS PRN PO AGITATION Last administered on 04/04/19at 08:25; Start 03/31/19 at 14:15 Buspirone HCl (Buspar) 15 mg TID PO Last administered on 04/04/19 08:25; Start 03/31/19 at 14:30 Duloxetine HCl (Cymbalta) 60 mg DAILY PO Last administered on 04/04/19 08:25; Start 03/31/19 at 15:00 Quetiapine Fumarate (SEROquel) 200 mg QHS PO Last administered on 04/03/19at 21:10; Start 03/31/19 at 21:00 Ceftriaxone Sodium (Rocephin) 1 gm Q24H IVP Last administered on 03/31/19at 16:12; Start 03/31/19 at 16:00; Stop 04/01/19 at 15:01; Status DC Sodium Chloride 1,000 ml @ 2,550 mls/hr Q24M IV ; Start 03/31/19 at 15:11; Stop 03/31/19 at 16:11; Status DC Sodium Chloride 500 ml @ 1,000 mls/hr PRN Q30MIN PRN IV SEE COMMENTS; Start 03/31/19 at 15:15 Norepinephrine Bitartrate 250 ml @ 0 mls/hr CONT PRN IV SEE I/O RECORD; Start 03/31/19 at 15:15; Stop 04/01/19 at 13:52; Status DC Dobutamine HCl/ Dextrose 250 ml @ 0 mls/hr CONT PRN IV SEE I/O RECORD; Start 03/31/19 at 15:15; Stop 04/02/19 at 13:09; Status DC Multivitamins 10 ml/Thiamine HCl 100 mg/Folic Acid 1 mg/Sodium Chloride 1,011.2 ml @ 100 mls/ hr DAILY IV Last administered on 04/02/19at 10:22; Start 03/31/19 at 15:30; Stop 04/02/19 at 23:00; Status DC Multivitamins (Thera M Plus) 1 tab DAILY PO Last administered on 04/04/19at 08:24; Start 04/03/19 at 09:00 Folic Acid (Folic Acid) 1 mg DAILY PO Last administered on 04/04/19at 08:25; Start 04/03/19 at 09:00 Lorazepam (Ativan) 4 mg PRN Q1HR PRN PO For CIWA 8-14; Start 03/31/19 at 15:15 Lorazepam (Ativan Inj) 2 mg PRN Q1HR PRN IV For CIWA 8-14 Last administered on 04/02/19at 15:30; Start 03/31/19 at 15:15 Lorazepam (Ativan Inj) 4 mg PRN Q1HR PRN IV For CIWA 15 or greater; Start 03/31/19 at 15:15 Haloperidol Lactate (Haldol Inj) 5 mg PRN Q4HRS PRN IVP Hallucinatns,Confus n,Delirium; Start 03/31/19 at 15:15 Clonidine HCl (Catapres) 0.1 mg PRN Q1HR PRN PO SBP > 180 or DBP > 100, MRX3 Last administered on 04/03/19at 11:19; Start 03/31/19 at 15:15 Lorazepam (Ativan Inj) 2 mg PRN Q15MIN PRN IV SEE COMMENTS; Start 03/31/19 at 1 5:15; Stop 04/01/19 at 13:53; Status DC Lorazepam (Ativan Inj) 4 mg PRN Q15MIN PRN IV SEE COMMENTS; Start 03/31/19 at 15:15; Stop 04/01/19 at 13:53; Status DC Lactobacillus Rhamnosus (Culturelle) 1 cap BID PO Last administered on 04/04/19at 08:24; Start 04/01/19 at 21:00 Acetaminophen/ Hydrocodone Bitart (Lortab 7.5/325) 1 tab PRN Q6HRS PRN PO PAIN Last administered on 04/03/19at 19:33; Start 04/01/19 at 14:00 Tizanidine HCl (Zanaflex) 4 mg PRN Q8HRS PRN PO MUSCLE SPASMS Last administered on 04/03/19at 11:18; Start 04/01/19 at 16:15 Thiamine Mononitrate (Vitamin B-1) 100 mg DAILY PO Last administered on 04/04/19at 08:24; Start 04/03/19 at 09:00 Active Scripts Active Ativan (Lorazepam) 0.5 Mg Tablet 0.5 Mg PO PRN Q8HRS PRN 6 Days Seroquel (Quetiapine Fumarate) 200 Mg Tablet 200 Mg PO HS Atorvastatin Calcium 20 Mg Tablet 1 Tab PO DAILY Reported Duoneb 0.5-3(2.5) Mg/3 Ml (Albuterol/Ipratropium) 3 Ml Ampul.neb 3 Ml NEB QIDPRN Cymbalta (Duloxetine Hcl) 60 Mg Capsule.dr 60 Mg PO DAILY Cyclobenzaprine Hcl 10 Mg Tablet 1 Tab PO TID Buspirone Hcl 15 Mg Tablet 1 Tab PO TID Hydroxyzine Pamoate 50 Mg Capsule 1 Cap PO TID Vitals/I & O Vital Sign - Last 24 Hours 04/03/19 04/03/19 04/03/19 04/03/19 15:00 19:30 19:33 19:35 Temp 97.9 98.5 97.9 98.5 Pulse 63 56 Resp 18 16 B/P (MAP) 155/80 (105) 158/96 (116) Pulse Ox 98 95 O2 Delivery Room Air Room Air Room Air Room Air 04/03/19 04/03/19 04/04/19 04/04/19 20:33 23:18 07:00 07:10 Temp 98.1 97.8 98.1 97.8 Pulse 99 63 Resp 18 20 B/P (MAP) 130/81 (97) 136/87 (103) Pulse Ox 95 95 O2 Delivery Room Air Room Air Room Air Room Air Images NONCONTRAST HEAD CT No acute intracranial hemorrhage or midline shift or mass-effect or hydrocephalus or extra-axial fluid collection is seen. Multiple small periventricular white matter hypodense lesions are seen. No skull fracture or pneumocephalus is seen. No opacification of the mastoid sinuses or the paranasal sinuses is seen. The maxillary sinuses are not completely seen in this study. IMPRESSION: No acute intracranial hemorrhage is seen. Multiple small periventricular white matter hypodense lesions are seen. This may represent chronic small vessel ischemic disease but other considerations include a demyelinating process such as multiple sclerosis or even metastatic disease if there is a history of primary malignancy. MRI study of the brain with and without gadolinium may be helpful for further evaluation. CT STUDY OF THE CERVICAL SPINE WITHOUT CONTRAST No acute fracture is evident. No discitis or lytic process evident. No anterolisthesis is evident. Degenerative facet arthropathy is evident. No perching of facet joints is seen. Degenerative disc space narrowing and endplate spurring is seen at C4-5 and C5-6 and C6-7 and C7-T1. There is narrowing of the neural foramina bilaterally at C4-5 and C5-6 and C6-7. Multilevel mild spinal canal stenosis is seen most prominent on left side at C5-6 and C6-7. IMPRESSION: Degenerative cervical spondylosis. MAXIMUS CERRATO MD April 04, 2019 11:53
--- NOTE | 2019-04-04 12:01 | NUR ---
Ricardo from PAT team her to assess pt.
[2019-04-04] MEDS: HYDROcodone/APAP 7.5/325MG 1 TAB TABLET PO PRN (12:07)
[2019-04-04] MEDS ORDERED: LORazepam 0.5 MG TABLET PO ONE (12:15)
--- NOTE | 2019-04-04 13:59 | NUR ---
Wound Care Wound care consult for puncture wound to Right plantar foot. Pt has dry open blood blister to plantar foot. Cleansed wound and covered with foam for protection as pt states his foot is very painful. No other wounds noted on full skin inspection. WC will sign off at this time. Please reconsult if wound changes or new wounds appear.
[2019-04-04 15:00] VITALS: BP 142/89
--- NOTE | 2019-04-04 15:25 | NUR ---
TETE following. [facility] has denied pt again due to medical and acuity. TETE spoke with Ricardo (PAT team), he will come to see pt with pt's block and case maker tomorrow (04/05/19). Ricardo advised TETE try [facility] (ph: [phone], fax: [phone]) and [place] [place] (ph: [phone], fax: [phone]). [facility] not have any available beds. [facility] requested TETE fax the referral, RN notified and RN's phone number given to [facility]. TETE will continue to follow.
[2019-04-04] MEDS: tiZANidine 4 MG TABLET. PO PRN (16:10)
--- NOTE | 2019-04-04 16:35 | NUR ---
Received call from Norah with [facility]. Norah inquired about reason for admit to facility.Today's assessment paperwork from Ricardo with PAT team re-faxed.
--- NOTE | 2019-04-04 17:16 | NUR ---
Fax attempt made to [facility] x [phone], fax responds as "busy". Spoke with facility re: [place] to fax information.
[2019-04-04 19:15] VITALS: BP 157/104
[2019-04-04] MEDS: QUEtiapine 100 MG TABLET. PO SCH (20:12)
[2019-04-04] MEDS: ATORVASTATIN CALCIUM 20 MG TABLET PO SCH (20:12)
[2019-04-04] MEDS: cloNIDine HCL 0.1 MG TABLET PO PRN (20:19)
[2019-04-04 23:07] VITALS: BP 130/78
[2019-04-05 03:43] VITALS: BP 135/81
[2019-04-05 07:00] VITALS: BP 129/76
--- NOTE | 2019-04-05 08:41 | PDOC ---
Infectious Disease Note Subjective: Subjective pt says doing ok ROS: ROS Negative except for above. Vital Signs: Vital Signs Vital Signs Date Time Temp Pulse Resp B/P (MAP) Pulse Ox O2 Delivery O2 Flow Rate FiO2 04/05/19 03:43 98.6 75 16 135/81 (99) 96 Room Air 98.6 Physical Exam: PHYSICAL EXAM HEENT: no icterus NECK: Supple. No JVP, no lymphadenopathy. LUNGS: Clear. HEART: S1 and S2 regular. ABDOMEN: Benign. EXTREMITIES: No edema or cyanosis. SKIN EXAMINATION: Unremarkable. NEUROLOGIC: The patient is neurologically alert, awake and appropriate. No focal neurologic deficits. Medications: Inpatient Meds: Current Medications Medications (Trade) Dose Ordered Sig/Dainn Start Time Stop Time Status Last Admin Dose Admin Acetaminophen/ Hydrocodone Bitart (Lortab 7.5/325) 1 tab PRN Q6HRS PRN 04/01/19 14:00 04/04/19 12:07 1 TAB Albuterol Sulfate (Ventolin Neb Soln) 2.5 mg PRN QID PRN 03/31/19 14:45 Atorvastatin Calcium (Lipitor) 20 mg QHS 03/31/19 21:00 04/04/19 20:12 20 MG Buspirone HCl (Buspar) 15 mg TID 03/31/19 14:30 04/04/19 20:11 15 MG Ceftriaxone Sodium (Rocephin) 1 gm Q24H 03/31/19 16:00 04/01/19 15:01 DC 03/31/19 16:12 1 GM Clonidine HCl (Catapres) 0.1 mg PRN Q1HR PRN 03/31/19 15:15 04/04/19 20:19 0.1 MG Dobutamine HCl/ Dextrose 250 ml @ 0 mls/hr CONT PRN 03/31/19 15:15 04/02/19 13:09 DC Duloxetine HCl (Cymbalta) 60 mg DAILY 03/31/19 15:00 04/04/19 08:25 60 MG Folic Acid (Folic Acid) 1 mg DAILY 04/03/19 09:00 04/04/19 08:25 1 MG Haloperidol Lactate (Haldol Inj) 5 mg PRN Q4HRS PRN 03/31/19 15:15 Lactobacillus Rhamnosus (Culturelle) 1 cap BID 04/01/19 21:00 04/04/19 20:12 1 CAP Lorazepam (Ativan Inj) 4 mg PRN Q15MIN PRN 03/31/19 15:15 04/01/19 13:53 DC Lorazepam (Ativan) 0.5 mg 1X ONCE 04/04/19 12:15 04/04/19 12:16 DC 04/04/19 12:35 0.5 MG Multivitamins (Thera M Plus) 1 tab DAILY 04/03/19 09:00 04/04/19 08:24 1 TAB Multivitamins 10 ml/Thiamine HCl 100 mg/Folic Acid 1 mg/Sodium Chloride 1,011.2 ml @ 100 mls/ hr DAILY 03/31/19 15:30 04/02/19 23:00 DC 04/02/19 10:22 100 MLS/HR Norepinephrine Bitartrate 250 ml @ 0 mls/hr CONT PRN 03/31/19 15:15 04/01/19 13:52 DC Piperacillin Sod/ Tazobactam Sod 4.5 gm/Sodium Chloride 100 ml @ 200 mls/hr 1X ONCE 03/31/19 07:30 03/31/19 07:59 DC 03/31/19 07:26 200 MLS/HR Quetiapine Fumarate (SEROquel) 200 mg QHS 03/31/19 21:00 04/04/19 20:12 200 MG Sodium Chloride 500 ml @ 1,000 mls/hr PRN Q30MIN PRN 03/31/19 15:15 Thiamine Mononitrate (Vitamin B-1) 100 mg DAILY 04/03/19 09:00 04/04/19 08:24 100 MG Tizanidine HCl (Zanaflex) 4 mg PRN Q8HRS PRN 04/01/19 16:15 04/04/19 16:10 4 MG Vancomycin HCl 2 gm/Sodium Chloride 500 ml @ 250 mls/hr 1X ONCE 03/31/19 07:30 03/31/19 09:29 DC 03/31/19 08:45 250 MLS/HR Ziprasidone (Geodon Im) 20 mg 1X ONCE 03/31/19 05:00 03/31/19 05:01 DC 03/31/19 04:48 20 MG Objective: Assessment: 1. Encephalopathy secondary to alcohol and drugs. 2. Lactic acidosis secondary to the agitation. 3. Bipolar disorder. 4. Anxiety disorder. 5. Chronic obstructive pulmonary disease. 6. Leukocytosis, reactive. Plan: Plan of Care Monitor off antibiotics Continue supportive care and Pt is awaiting placement d/w YAIR EDWARDS MD April 05, 2019 08:41
[2019-04-05] MEDS: MULTIVITAMIN with MINERAL TABLET. PO SCH (09:23)
[2019-04-05] MEDS: DULoxetine HCL 30 MG CAPSULE.DR PO SCH (09:23)
[2019-04-05] MEDS: LACTOBACILLUS RHAMNOSUS GG 1 CAPSULE. PO SCH (09:23)
[2019-04-05] MEDS: FOLIC ACID 1 MG TABLET. PO SCH (09:23)
[2019-04-05] MEDS: busPIRone 5 MG TABLET. PO SCH ×2 (09:23→14:12)
[2019-04-05] MEDS: THIAMINE 100 MG TABLET. PO SCH (09:24)
[2019-04-05] MEDS: tiZANidine 4 MG TABLET. PO PRN (09:26)
[2019-04-05] MEDS: HYDROcodone/APAP 7.5/325MG 1 TAB TABLET PO PRN ×2 (09:26→14:13)
--- NOTE | 2019-04-05 10:35 | NUR ---
TETE following for discharge planning. Discussed with RN, pt feeling very depressed today. ETTE contacted [place], [place] to advise fax has not been going through. Caridad at [facility] advised pt has been denied due to "altered mental status, drug use, homelessness - with probable no transportation when ready to leave, no SI or SI plan". TETE advised assessment did state pt had SI with plan. TETE contacted Ricardo with PAT team, Ricardo advised pt's SI plan is to "hang himself", and that pt has case management who can help facilitate transportation when pt is ready to discharge from a mental health facility. TETE contacted Caridad at [facility] again, to advise of the above information, Caridad reported pt has been denied due to substance abuse and they would recommend a dual dx program which they do not have at [facility]. Ricardo with PAT is contacting pt's case management rn to have a meeting, and trying to find other placement options. RN notified. TETE will continue to follow.
--- NOTE | 2019-04-05 10:53 | PDOC ---
PROGRESS NOTES Assessment Problems Medical Problems: (1) Acute bronchitis with bronchospasm Status: Acute (2) Altered mental status Status: Acute (3) Dehydration Status: Acute (4) Septic shock Status: Acute Toxic encephalopathy, drug abuse, Urine positive for cannabinoids, amphetamine, alcohol Chronic neck pain, has cervical spondylosis not requiring any immediate surgical intervention Plan Inpatient psychiatry stay per psychiatric assessment team, note the problems we are having finding and accepting facility Follow-up with neurology as needed Subjective No complaints Objective Vital Signs Date Time Temp Pulse Resp B/P (MAP) Pulse Ox O2 Delivery O2 Flow Rate FiO2 04/05/19 10:31 Room Air 04/05/19 07:00 98.7 77 18 129/76 (93) 94 98.7 Intake and Output 04/05/19 06:59 Intake Total 540 ml Balance 540 ml Intake Oral 540 ml # Voids 3 PHYSICAL EXAM Alert. Oriented to time, place and person. PERRL. EOMI. CN: no focal findings. Muscle tone: normal. Muscle strength: 5/5 DTR: 2+ Plantar reflex: flexor Gait: not examined in bed. Sensory exam: no abnormal findings. No cerebellar signs elicited. Review of Relevant I have reviewed the following items pippa (where applicable) has been applied. Labs Laboratory Tests Test 04/04/19 04:00 White Blood Count 5.4 x10^3/uL (4.0-11.0) Red Blood Count 4.05 x10^6/uL (4.30-5.70) Hemoglobin 12.2 g/dL (13.0-17.5) Hematocrit 36.4 % (39.0-53.0) Mean Corpuscular Volume 90 fL (79-100) Mean Corpuscular Hemoglobin 30 pg (25-35) Mean Corpuscular Hemoglobin Concent 34 g/dL (31-37) Red Cell Distribution Width 14.8 % (11.5-14.5) Platelet Count 151 x10^3/uL (140-400) Neutrophils (%) (Auto) 55 % (31-73) Lymphocytes (%) (Auto) 31 % (24-48) Monocytes (%) (Auto) 11 % (0-9) Eosinophils (%) (Auto) 2 % (0-3) Basophils (%) (Auto) 1 % (0-3) Neutrophils # (Auto) 3.0 x10^3uL (1.8-7.7) Lymphocytes # (Auto) 1.7 x10^3/uL (1.0-4.8) Monocytes # (Auto) 0.6 x10^3/uL (0.0-1.1) Eosinophils # (Auto) 0.1 x10^3/uL (0.0-0.7) Basophils # (Auto) 0.0 x10^3/uL (0.0-0.2) Sodium Level 144 mmol/L (136-145) Potassium Level 3.5 mmol/L (3.5-5.1) Chloride Level 108 mmol/L (98-107) Carbon Dioxide Level 29 mmol/L (21-32) Anion Gap 7 (6-14) Blood Urea Nitrogen 10 mg/dL (8-26) Creatinine 1.0 mg/dL (0.7-1.3) Estimated GFR (Cockcroft-Gault) 78.8 Glucose Level 102 mg/dL (70-99) Calcium Level 8.5 mg/dL (8.5-10.1) Microbiology 03/31/19 Blood Culture - Final, Complete NO GROWTH AFTER 5 DAYS 03/31/19 Urine Culture - Final, Complete 03/31/19 Urine Culture Result 1 (JAMES) - Final, Complete Medications Current Medications Ziprasidone (Geodon Im) 20 mg STK-MED ONCE IM ; Start 03/31/19 at 04:24; Stop 03/31/19 at 04:25; Status DC Sodium Chloride 1,000 ml @ 1,000 mls/hr 1X ONCE IV Last administered on 03/31/19at 04:49; Start 03/31/19 at 05:00; Stop 03/31/19 at 05:59; Status DC Ziprasidone (Geodon Im) 20 mg 1X ONCE IM Last administered on 03/31/19at 04:48; Start 03/31/19 at 05:00; Stop 03/31/19 at 05:01; Status DC Lorazepam (Ativan Inj) 2 mg 1X ONCE IV Last administered on 03/31/19at 04:49; Start 03/31/19 at 05:00; Stop 03/31/19 at 05:01; Status DC Haloperidol Lactate (Haldol Inj) 5 mg 1X ONCE IVP Last administered on 03/31/19at 04:49; Start 03/31/19 at 05:00; Stop 03/31/19 at 05:01; Status DC Acetaminophen/ Hydrocodone Bitart (Lortab 7.5/325) 1 tab 1X ONCE PO ; Start 03/31/19 at 06:00; Stop 03/31/19 at 06:01; Status Cancel Sodium Chloride 1,000 ml @ 150 mls/hr Q6H40M IV Last administered on 04/01/19at 01:40; Start 03/31/19 at 06:00; Stop 04/01/19 at 05:59; Status DC Sodium Chloride 1,000 ml @ 1,000 mls/hr 1X ONCE IV Last administered on 03/31/19at 06:21; Start 03/31/19 at 06:30; Stop 03/31/19 at 07:29; Status DC Sodium Chloride 1,000 ml @ 1,000 mls/hr 1X ONCE IV Last administered on 03/31/19at 07:00; Start 03/31/19 at 07:00; Stop 03/31/19 at 07:59; Status DC Piperacillin Sod/ Tazobactam Sod 4.5 gm/Sodium Chloride 100 ml @ 200 mls/hr 1X ONCE IV Last administered on 03/31/19at 07:26; Start 03/31/19 at 07:30; Stop 03/31/19 at 07:59; Status DC Vancomycin HCl 2 gm/Sodium Chloride 500 ml @ 250 mls/hr 1X ONCE IV Last administered on 03/31/19at 08:45; Start 03/31/19 at 07:30; Stop 03/31/19 at 09:29; Status DC Atorvastatin Calcium (Lipitor) 20 mg QHS PO Last administered on 04/04/19at 20:12; Start 03/31/19 at 21:00 Albuterol Sulfate (Ventolin Neb Soln) 2.5 mg PRN QID PRN NEB SHORTNESS OF BREATH; Start 03/31/19 at 14:45 Lorazepam (Ativan) 0.5 mg PRN Q8HRS PRN PO AGITATION Last administered on 04/04/19at 19:48; Start 03/31/19 at 14:15 Buspirone HCl (Buspar) 15 mg TID PO Last administered on 04/05/19at 09:23; Start 03/31/19 at 14:30 Duloxetine HCl (Cymbalta) 60 mg DAILY PO Last administered on 04/05/19at 09:23; Start 03/31/19 at 15:00 Quetiapine Fumarate (SEROquel) 200 mg QHS PO Last administered on 04/04/19at 20:12; Start 03/31/19 at 21:00 Ceftriaxone Sodium (Rocephin) 1 gm Q24H IVP Last administered on 03/31/19at 16:12; Start 03/31/19 at 16:00; Stop 04/01/19 at 15:01; Status DC Sodium Chloride 1,000 ml @ 2,550 mls/hr Q24M IV ; Start 03/31/19 at 15:11; Stop 03/31/19 at 16:11; Status DC Sodium Chloride 500 ml @ 1,000 mls/hr PRN Q30MIN PRN IV SEE COMMENTS; Start 03/31/19 at 15:15 Norepinephrine Bitartrate 250 ml @ 0 mls/hr CONT PRN IV SEE I/O RECORD; Start 03/31/19 at 15:15; Stop 04/01/19 at 13:52; Status DC Dobutamine HCl/ Dextrose 250 ml @ 0 mls/hr CONT PRN IV SEE I/O RECORD; Start 03/31/19 at 15:15; Stop 04/02/19 at 13:09; Status DC Multivitamins 10 ml/Thiamine HCl 100 mg/Folic Acid 1 mg/Sodium Chloride 1,011.2 ml @ 100 mls/ hr DAILY IV Last administered on 04/02/19at 10:22; Start 03/31/19 at 15:30; Stop 04/02/19 at 23:00; Status DC Multivitamins (Thera M Plus) 1 tab DAILY PO Last administered on 04/05/19at 09:23; Start 04/03/19 at 09:00 Folic Acid (Folic Acid) 1 mg DAILY PO Last administered on 04/05/19at 09:23; Start 04/03/19 at 09:00 Lorazepam (Ativan) 4 mg PRN Q1HR PRN PO For CIWA 8-14; Start 03/31/19 at 15:15 Lorazepam (Ativan Inj) 2 mg PRN Q1HR PRN IV For CIWA 8-14 Last administered on 04/04/19at 20:53; Start 03/31/19 at 15:15 Lorazepam (Ativan Inj) 4 mg PRN Q1HR PRN IV For CIWA 15 or greater; Start 03/31/19 at 15:15 Haloperidol Lactate (Haldol Inj) 5 mg PRN Q4HRS PRN IVP Hallucina tns,Confusn,Delirium; Start 03/31/19 at 15:15 Clonidine HCl (Catapres) 0.1 mg PRN Q1HR PRN PO SBP > 180 or DBP > 100, MRX3 Last administered on 04/04/19at 20:19; Start 03/31/19 at 15:15 Lorazepam (Ativan Inj) 2 mg PRN Q15MIN PRN IV SEE COMMENTS; Start 03/31/19 at 15:15; Stop 04/01/19 at 13:53; Status DC Lorazepam (Ativan Inj) 4 mg PRN Q15MIN PRN IV SEE COMMENTS; Start 03/31/19 at 15:15; Stop 04/01/19 at 13:53; Status DC Lactobacillus Rhamnosus (Culturelle) 1 cap BID PO Last administered on 04/05/19at 09:23; Start 04/01/19 at 21:00 Acetaminophen/ Hydrocodone Bitart (Lortab 7.5/325) 1 tab PRN Q6HRS PRN PO PAIN Last administered on 04/05/19 09:26; Start 04/01/19 at 14:00 Tizanidine HCl (Zanaflex) 4 mg PRN Q8HRS PRN PO MUSCLE SPASMS Last administered on 04/05/19 09:26; Start 04/01/19 at 16:15 Thiamine Mononitrate (Vitamin B-1) 100 mg DAILY PO Last administered on 04/05/19 09:24; Start 04/03/19 at 09:00 Lorazepam (Ativan) 0.5 mg 1X ONCE PO Last administered on 04/04/19at 12:35; Start 04/04/19 at 12:15; Stop 04/04/19 at 12:16; Status DC Active Scripts Active Ativan (Lorazepam) 0.5 Mg Tablet 0.5 Mg PO PRN Q8HRS PRN 6 Days Seroquel (Quetiapine Fumarate) 200 Mg Tablet 200 Mg PO HS Atorvastatin Calcium 20 Mg Tablet 1 Tab PO DAILY Reported Duoneb 0.5-3(2.5) Mg/3 Ml (Albuterol/Ipratropium) 3 Ml Ampul.neb 3 Ml NEB QIDPRN Cymbalta (Duloxetine Hcl) 60 Mg Capsule.dr 60 Mg PO DAILY Cyclobenzaprine Hcl 10 Mg Tablet 1 Tab PO TID Buspirone Hcl 15 Mg Tablet 1 Tab PO TID Hydroxyzine Pamoate 50 Mg Capsule 1 Cap PO TID Vitals/I & O Vital Sign - Last 24 Hours 04/04/19 04/04/19 04/04/19 04/04/19 11:00 12:07 15:00 19:15 Temp 98.2 98.2 98.6 98.2 98.2 98.6 Pulse 75 89 80 Resp 18 20 18 B/P (MAP) 148/95 (112) 142/89 (106) 157/104 (121) Pulse Ox 95 96 96 O2 Delivery Room Air Room Air Room Air Room Air 04/04/19 04/04/19 04/04/19 04/05/19 20:00 20:19 23:07 03:43 Temp 98.5 98.6 98.5 98.6 Pulse 89 71 75 Resp 16 16 B/P (MAP) 157/105 130/78 (95) 135/81 (99) Pulse Ox 93 96 O2 Delivery Room Air Room Air Room Air 04/05/19 04/05/19 04/05/19 04/05/19 07:00 08:15 09:26 10:31 Temp 98.7 98.7 Pulse 77 Resp 18 B/P (MAP) 129/76 (93) Pulse Ox 94 O2 Delivery Room Air Room Air Room Air Room Air Intake and Output0 04/04/19 04/04/19 04/05/19 14:59 22:59 06:59 Intake Total 120 ml 420 ml Balance 120 ml 420 ml MAXIMUS CERRATO MD April 05, 2019 10:53
[2019-04-05 11:00] VITALS: BP 141/83
--- NOTE | 2019-04-05 13:03 | PDOC ---
PROGRESS NOTES Chief Complaint Chief Complaint acute drug induced delirium Meth abuse Alcohol abuse, severe Cannabinoid abuse psychomotor agitation History of bipolar disorder COPD Tobacco abuse with greater than [id number] history of smoking Severe osteoarthritis History of Present Illness History of Present Illness Patient with no acute events reported overnight. The patient seems to be quite depressed, he is asking about being transferred to a psych facility we will check with case management regarding this. Vitals Vitals Vital Signs Date Time Temp Pulse Resp B/P (MAP) Pulse Ox O2 Delivery O2 Flow Rate FiO2 04/05/19 10:31 Room Air 04/05/19 07:00 98.7 77 18 129/76 (93) 94 98.7 Physical Exam Physical Exam HEENT: no icterus NECK: Supple. No JVP, no lymphadenopathy. LUNGS: Clear. HEART: S1 and S2 regular. ABDOMEN: Benign. EXTREMITIES: No edema or cyanosis. SKIN EXAMINATION: Unremarkable. NEUROLOGIC: The patient is neurologically alert, awake and appropriate. No focal neurologic deficits. General: Alert, Oriented X3, Cooperative, mild distress Heart: Regular rate, Normal S1 Lungs: Clear Abdomen: Normal bowel sounds, Soft Extremities: No clubbing, No cyanosis Skin: No breakdown, No significant lesion Review of Systems Review of Systems Pertinent as per history of present illness otherwise 14 point review of system is negative Assessment and Plan Assessmemt and Plan Problems Medical Problems: (1) Acute bronchitis with bronchospasm Status: Acute (2) Altered mental status Status: Acute (3) Dehydration Status: Acute (4) Septic shock Status: Acute Comment Review of Relevant I have reviewed the following items pippa (where applicable) has been applied. Labs Laboratory Tests Test 04/04/19 04:00 White Blood Count 5.4 x10^3/uL (4.0-11.0) Red Blood Count 4.05 x10^6/uL (4.30-5.70) Hemoglobin 12.2 g/dL (13.0-17.5) Hematocrit 36.4 % (39.0-53.0) Mean Corpuscular Volume 90 fL (79-100) Mean Corpuscular Hemoglobin 30 pg (25-35) Mean Corpuscular Hemoglobin Concent 34 g/dL (31-37) Red Cell Distribution Width 14.8 % (11.5-14.5) Platelet Count 151 x10^3/uL (140-400) Neutrophils (%) (Auto) 55 % (31-73) Lymphocytes (%) (Auto) 31 % (24-48) Monocytes (%) (Auto) 11 % (0-9) Eosinophils (%) (Auto) 2 % (0-3) Basophils (%) (Auto) 1 % (0-3) Neutrophils # (Auto) 3.0 x10^3uL (1.8-7.7) Lymphocytes # (Auto) 1.7 x10^3/uL (1.0-4.8) Monocytes # (Auto) 0.6 x10^3/uL (0.0-1.1) Eosinophils # (Auto) 0.1 x10^3/uL (0.0-0.7) Basophils # (Auto) 0.0 x10^3/uL (0.0-0.2) Sodium Level 144 mmol/L (136-145) Potassium Level 3.5 mmol/L (3.5-5.1) Chloride Level 108 mmol/L (98-107) Carbon Dioxide Level 29 mmol/L (21-32) Anion Gap 7 (6-14) Blood Urea Nitrogen 10 mg/dL (8-26) Creatinine 1.0 mg/dL (0.7-1.3) Estimated GFR (Cockcroft-Gault) 78.8 Glucose Level 102 mg/dL (70-99) Calcium Level 8.5 mg/dL (8.5-10.1) Microbiology 03/31/19 Blood Culture - Final, Complete NO GROWTH AFTER 5 DAYS 03/31/19 Urine Culture - Final, Complete 03/31/19 Urine Culture Result 1 (JAMES) - Final, Complete Medications Current Medications Ziprasidone (Geodon Im) 20 mg STK-MED ONCE IM ; Start 03/31/19 at 04:24; Stop 03/31/19 at 04:25; Status DC Sodium Chloride 1,000 ml @ 1,000 mls/hr 1X ONCE IV Last administered on 03/31/19at 04:49; Start 03/31/19 at 05:00; Stop 03/31/19 at 05:59; Status DC Ziprasidone (Geodon Im) 20 mg 1X ONCE IM Last administered on 03/31/19at 04:48; Start 03/31/19 at 05:00; Stop 03/31/19 at 05:01; Status DC Lorazepam (Ativan Inj) 2 mg 1X ONCE IV Last administered on 03/31/19at 04:49; Start 03/31/19 at 05:00; Stop 03/31/19 at 05:01; Status DC Haloperidol Lactate (Haldol Inj) 5 mg 1X ONCE IVP Last administered on 03/31/19at 04:49; Start 03/31/19 at 05:00; Stop 03/31/19 at 05:01; Status DC Acetaminophen/ Hydrocodone Bitart (Lortab 7.5/325) 1 tab 1X ONCE PO ; Start 03/31/19 at 06:00; Stop 03/31/19 at 06:01; Status Cancel Sodium Chloride 1,000 ml @ 150 mls/hr Q6H40M IV Last administered on 04/01/19at 01:40; Start 03/31/19 at 06:00; Stop 04/01/19 at 05:59; Status DC Sodium Chloride 1,000 ml @ 1,000 mls/hr 1X ONCE IV Last administered on 03/31/19at 06:21; Start 03/31/19 at 06:30; Stop 03/31/19 at 07:29; Status DC Sodium Chloride 1,000 ml @ 1,000 mls/hr 1X ONCE IV Last administered on 03/31/19at 07:00; Start 03/31/19 at 07:00; Stop 03/31/19 at 07:59; Status DC Piperacillin Sod/ Tazobactam Sod 4.5 gm/Sodium Chloride 100 ml @ 200 mls/hr 1X ONCE IV Last administered on 03/31/19at 07:26; Start 03/31/19 at 07:30; Stop 03/31/19 at 07:59; Status DC Vancomycin HCl 2 gm/Sodium Chloride 500 ml @ 250 mls/hr 1X ONCE IV Last administered on 03/31/19at 08:45; Start 03/31/19 at 07:30; Stop 03/31/19 at 09:29; Status DC Atorvastatin Calcium (Lipitor) 20 mg QHS PO Last administered on 04/04/19at 20:12; Start 03/31/19 at 21:00 Albuterol Sulfate (Ventolin Neb Soln) 2.5 mg PRN QID PRN NEB SHORTNESS OF B REATH; Start 03/31/19 at 14:45 Lorazepam (Ativan) 0.5 mg PRN Q8HRS PRN PO AGITATION Last administered on 04/04/19at 19:48; Start 03/31/19 at 14:15 Buspirone HCl (Buspar) 15 mg TID PO Last administered on 04/05/19 09:23; Start 03/31/19 at 14:30 Duloxetine HCl (Cymbalta) 60 mg DAILY PO Last administered on 04/05/19 09:23; Start 03/31/19 at 15:00 Quetiapine Fumarate (SEROquel) 200 mg QHS PO Last administered on 04/04/19at 20:12; Start 03/31/19 at 21:00 Ceftriaxone Sodium (Rocephin) 1 gm Q24H IVP Last administered on 03/31/19at 16:12; Start 03/31/19 at 16:00; Stop 04/01/19 at 15:01; Status DC Sodium Chloride 1,000 ml @ 2,550 mls/hr Q24M IV ; Start 03/31/19 at 15:11; Stop 03/31/19 at 16:11; Status DC Sodium Chloride 500 ml @ 1,000 mls/hr PRN Q30MIN PRN IV SEE COMMENTS; Start 03/31/19 at 15:15 Norepinephrine Bitartrate 250 ml @ 0 mls/hr CONT PRN IV SEE I/O RECORD; Start 03/31/19 at 15:15; Stop 04/01/19 at 13:52; Status DC Dobutamine HCl/ Dextrose 250 ml @ 0 mls/hr CONT PRN IV SEE I/O RECORD; Start 03/31/19 at 15:15; Stop 04/02/19 at 13:09; Status DC Multivitamins 10 ml/Thiamine HCl 100 mg/Folic Acid 1 mg/Sodium Chloride 1,011.2 ml @ 100 mls/ hr DAILY IV Last administered on 04/02/19at 10:22; Start 03/31/19 at 15:30; Stop 04/02/19 at 23:00; Status DC Multivitamins (Thera M Plus) 1 tab DAILY PO Last administered on 04/05/19at 09:23; Start 04/03/19 at 09:00 Folic Acid (Folic Acid) 1 mg DAILY PO Last administered on 04/05/19 09:23; Start 04/03/19 at 09:00 Lorazepam (Ativan) 4 mg PRN Q1HR PRN PO For CIWA 8-14; Start 03/31/19 at 15:15 Lorazepam (Ativan Inj) 2 mg PRN Q1HR PRN IV For CIWA 8-14 Last administered on 04/04/19 20:53; Start 03/31/19 at 15:15 Lorazepam (Ativan Inj) 4 mg PRN Q1HR PRN IV For CIWA 15 or greater; Start 03/31/19 at 15:15 Haloperidol Lactate (Haldol Inj) 5 mg PRN Q4HRS PRN IVP Hallucinatns,Confusn,Delirium; Start 03/31/19 at 15:15 Clonidine HCl (Catapres) 0.1 mg PRN Q1HR PRN PO SBP > 180 or DBP > 100, MRX3 Last administered on 04/04/19 20:19; Start 03/31/19 at 15:15 Lorazepam (Ativan Inj) 2 mg PRN Q15MIN PRN IV SEE COMMENTS; Start 03/31/19 at 15:15; Stop 04/01/19 at 13:53; Status DC Lorazepam (Ativan Inj) 4 mg PRN Q15MIN PRN IV SEE COMMENTS; Start 03/31/19 at 15:15; Stop 04/01/19 at 13:53; Status DC Lactobacillus Rhamnosus (Culturelle) 1 cap BID PO Last administered on 04/05/19 09:23; Start 04/01/19 at 21:00 Acetaminophen/ Hydrocodone Bitart (Lortab 7.5/325) 1 tab PRN Q6HRS PRN PO PAIN Last administered on 04/05/19 09:26; Start 04/01/19 at 14:00 Tizanidine HCl (Zanaflex) 4 mg PRN Q8HRS PRN PO MUSCLE SPASMS Last administered on 04/05/19 09:26; Start 04/01/19 at 16:15 Thiamine Mononitrate (Vitamin B-1) 100 mg DAILY PO Last administered on 04/05/19 09:24; Start 04/03/19 at 09:00 Lorazepam (Ativan) 0.5 mg 1X ONCE PO Last administered on 5/28/19at 12:35; Start 04/04/19 at 12:15; Stop 04/04/19 at 12:16; Status DC Active Scripts Active Ativan (Lorazepam) 0.5 Mg Tablet 0.5 Mg PO PRN Q8HRS PRN 6 Days Seroquel (Quetiapine Fumarate) 200 Mg Tablet 200 Mg PO HS Atorvastatin Calcium 20 Mg Tablet 1 Tab PO DAILY Reported Duoneb 0.5-3(2.5) Mg/3 Ml (Albuterol/Ipratropium) 3 Ml Ampul.neb 3 Ml NEB QIDPRN Cymbalta (Duloxetine Hcl) 60 Mg Capsule.dr 60 Mg PO DAILY Cyclobenzaprine Hcl 10 Mg Tablet 1 Tab PO TID Buspirone Hcl 15 Mg Tablet 1 Tab PO TID Hydroxyzine Pamoate 50 Mg Capsule 1 Cap PO TID Vitals/I & O Vital Sign - Last 24 Hours 04/04/19 04/04/19 04/04/19 04/04/19 15:00 19:15 20:00 20:19 Temp 98.2 98.6 98.2 98.6 Pulse 89 80 89 Resp 20 18 B/P (MAP) 142/89 (106) 157/104 (121) 157/105 Pulse Ox 96 96 O2 Delivery Room Air Room Air Room Air 04/04/19 04/05/19 04/05/19 04/05/19 23:07 03:43 07:00 08:15 Temp 98.5 98.6 98.7 98.5 98.6 98.7 Pulse 71 75 77 Resp 16 16 18 B/P (MAP) 130/78 (95) 135/81 (99) 129/76 (93) Pulse Ox 93 96 94 O2 Delivery Room Air Room Air Room Air Room Air 04/05/19 04/05/19 09:26 10:31 O2 Delivery Room Air Room Air Intake and Output 04/04/19 04/04/19 04/05/19 15:00 23:00 07:00 Intake Total 120 ml 420 ml Balance 120 ml 420 ml OSWALDO GAN MD April 05, 2019 13:03
[2019-04-05] MEDS: LORazepam 0.5 MG TABLET PO PRN (14:44)
[2019-04-05 15:00] VITALS: BP 126/84
[2019-04-05 15:27] LABS: BILIRUBIN,URINE NEGATIVE (NEG); CLARITY,URINE CLEAR; COLOR,URINE YELLOW; NITRITE,URINE NEGATIVE (NEG); PH,URINE 7.5; PROTEIN,URINE NEGATIVE (NEG-TRACE)
[2019-04-05 15:29] LABS: BARBITURATES NEG (NEG); BENZODIAZEPINES NEG (NEG); CANNABINOIDS POS (NEG); COCAINE NEG (NEG); METHADONE NEG (NEG); OPIATES POS (NEG); PHENCYCLIDINE NEG (NEG)
[2019-04-05 15:32] LABS: AMPHETAMINE/METHAMPHETAMINE NEG (NEG)
[2019-04-05 16:04] LABS: AMORPHOUS SEDIMENT,UR PRESENT /HPF; BACTERIA,URINE 0 /HPF (0-FEW); RBC,URINE 0 /HPF (0-2); SQUAMOUS EPITHELIAL CELL,UR OCC /LPF
--- NOTE | 2019-04-05 16:07 | NUR ---
TETE following. Referral was sent to [facility] for adult psych placement, updated labs ordered. Luna at [facility] to contact RN if pt has been accepted (ph: [phone], fax: [phone]). TETE provided RN with [facility] to fax to [facility] ([phone] - RN to confirm with [facility] when scheduling transport). RN notified. TETE will continue to follow.
[2019-04-05] MEDS ORDERED: NICOTINE 21MG PATCH. TD PRN (17:45)
--- NOTE | 2019-04-05 18:00 | NUR ---
Pt transferring to [facility] psychiatric unit. Called and gave report to FRANCESCA Eddy. IV removed. All belongings were packed by pt in large red duffle bag. Sealed bag of meds were given to EMS personnel for transport. Pt ambulated to [facility] and was taken by EMS.
== END 2019-04-05 18:00 | DRG 917 ==
LOC: ER 03:52 → 2 SOUTH 05:52 → OBSVTOIN 05:52 → 1 WEST ICU 08:00 → 4 NORTH 04-01 12:32
PROVIDERS: ADMIT Internal Medicine; ATTEND Internal Medicine
DX: T43.621A Poisoning by amphetamines, accidental (unintentional), initial encounter (principal); G92 Toxic encephalopathy; J44.0 Chronic obstructive pulmonary disease with (acute) lower respiratory infection; F12.10 Cannabis abuse, uncomplicated; E86.0 Dehydration; F43.10 Post-traumatic stress disorder, unspecified; F17.210 Nicotine dependence, cigarettes, uncomplicated; J20.9 Acute bronchitis, unspecified; F15.10 Other stimulant abuse, uncomplicated; F31.9 Bipolar disorder, unspecified; R07.89 Other chest pain; E78.1 Pure hyperglyceridemia; G31.2 Degeneration of nervous system due to alcohol; M47.812 Spondylosis without myelopathy or radiculopathy, cervical region; G89.29 Other chronic pain; M48.02 Spinal stenosis, cervical region; Z87.820 Personal history of traumatic brain injury; Z82.49 Family history of ischemic heart disease and other diseases of the circulatory system; Z59.0 Homelessness
CPT/HCPCS: 36415; 70450; 71045; 72125; 80048; 80053; 80307; 80329; 81001; 83605; 83735; 84145; 84484; 85007; 85025; 85384; 85610; 85730; 87040; 87086; 87641; 93005; 96361; 96365; 96372; 96375; J0696; J1630; J2060; J2543; J3370; J3486; J7030; J7040; 99285-25; G0480

== ENCOUNTER 2019-04-13 19:47 | Emergency (ER) | payer OTHER ==
[~2019-04-13] VITALS: Ht 188 cm; Wt 99.8 kg
[~2019-04-13 19:47] MED LIST changes: +AMOX1TAB61 PO; +BUSP15TA PO; +DIAZ5TAB4 PO; +DULO60CA6 PO; +HYDR5SUS PO; +QUET200T4 PO
--- NOTE | 2019-04-13 20:34 | PHYS DOC ---
Past Medical History Past Medical History: Anxiety, Arthritis, Bipolar, Bronchitis, COPD, Depression, Other Additional Past Medical Histor: manic/depression, schizo tendencies, chronic neck/back pain, TBI, PTSD,ANATOLY Past Surgical History: Other Additional Past Surgical Histo: LEFT EARDRUM Smoking: Cigarettes, Greater than 1 pack/day Alcohol Use: Occasionally Drug Use: Marijuana, Phencyclidine Adult General Chief Complaint Chief Complaint: SUICDAL IDEATION HPI HPI Patient is a 53 year old who presents with suicidal ideation. States that this been ongoing issue recently has gotten worse. Rates his try to hang himself in the past, and has recently been trying to figure out which bridge he wants to drop himself off of refused to say which he decided on. Also states I'm running out of her reasons to exist. Rates his pain as 10 out of 10 and states he has chronic body wide pain. Review of Systems Review of Systems Constitutional: Denies fever or chills [] Eyes: Denies change in visual acuity, redness, or eye pain [] HENT: Denies nasal congestion or sore throat [] Respiratory: Denies cough or shortness of breath [] Cardiovascular: No additional information not addressed in HPI [] GI: Denies abdominal pain, nausea, vomiting, bloody stools or diarrhea [] : Denies dysuria or hematuria [] Musculoskeletal: Reports chronic back pain or joint pain [] Integument: Denies rash or skin lesions [] Neurologic: Denies headache, focal weakness or sensory changes [] Endocrine: Denies polyuria or polydipsia [] Psych: Reports SI, denies HI Complete systems were reviewed and found to be within normal limits, except as documented in this note. Current Medications Current Medications Current Medications Medications (Trade) Dose Ordered Sig/Diann Start Time Stop Time Status Last Admin Dose Admin Morphine Sulfate (Morphine Sulfate) 4 mg 1X ONCE 04/13/19 23:00 04/13/19 23:01 DC 04/13/19 22:59 4 MG Sodium Chloride 1,000 ml @ 1,000 mls/hr 1X ONCE 04/13/19 23:00 04/13/19 23:59 DC 04/13/19 23:00 1,000 MLS/HR Allergies Allergies Allergies Coded Allergies Type Severity Reaction Last Updated Verified loratadine Allergy Severe Shortness of Air 2/24/19 Yes Physical Exam Physical Exam Constitutional: Well developed, well nourished, no acute distress, non-toxic appearance. [] HENT: Normocephalic, atraumatic, bilateral external ears normal, oropharynx moist, no oral exudates, nose normal. [] Eyes: PERRLA, EOMI, conjunctiva normal, no discharge. [] Neck: Normal range of motion, no tenderness, supple, no stridor. [] Cardiovascular:Heart rate regular rhythm, no murmur [] Lungs & Thorax: Bilateral breath sounds clear to auscultation [] Abdomen: Bowel sounds normal, soft, no tenderness, no masses, no pulsatile masses. [] Skin: Warm, dry, no erythema, no rash. [] Back: No tenderness, no CVA tenderness. [] Extremities: No tenderness, no cyanosis, no clubbing, ROM intact, no edema. [] Neurologic: Alert and oriented X 3, normal motor function, normal sensory function, no focal deficits noted. [] Psychologic: Affect flat, judgement reduced Current Patient Data Vital Signs Vital Signs Date Time Temp Pulse Resp B/P (MAP) Pulse Ox O2 Delivery O2 Flow Rate FiO2 04/13/19 22:59 Room Air 04/13/19 22:13 20 168/80 (109) 96 04/13/19 19:50 98.0 98.0 Lab Values Laboratory Tests Test 04/13/19 20:42 04/13/19 21:30 White Blood Count 7.3 x10^3/uL (4.0-11.0) Red Blood Count 4.12 x10^6/uL (4.30-5.70) L Hemoglobin 12.6 g/dL (13.0-17.5) L Hematocrit 36.9 % (39.0-53.0) L Mean Corpuscular Volume 90 fL (79-100) Mean Corpuscular Hemoglobin 31 pg (25-35) Mean Corpuscular Hemoglobin Concent 34 g/dL (31-37) Red Cell Distribution Width 14.7 % (11.5-14.5) H Platelet Count 209 x10^3/uL (140-400) Neutrophils (%) (Auto) 62 % (31-73) Lymphocytes (%) (Auto) 24 % (24-48) Monocytes (%) (Auto) 12 % (0-9) H Eosinophils (%) (Auto) 2 % (0-3) Basophils (%) (Auto) 1 % (0-3) Neutrophils # (Auto) 4.5 x10^3uL (1.8-7.7) Lymphocytes # (Auto) 1.7 x10^3/uL (1.0-4.8) Monocytes # (Auto) 0.8 x10^3/uL (0.0-1.1) Eosinophils # (Auto) 0.2 x10^3/uL (0.0-0.7) Basophils # (Auto) 0.0 x10^3/uL (0.0-0.2) Sodium Level 140 mmol/L (136-145) Potassium Level 3.4 mmol/L (3.5-5.1) L Chloride Level 103 mmol/L (98-107) Carbon Dioxide Level 24 mmol/L (21-32) Anion Gap 13 (6-14) Blood Urea Nitrogen 24 mg/dL (8-26) Creatinine 1.3 mg/dL (0.7-1.3) Estimated GFR (Cockcroft-Gault) 58.2 BUN/Creatinine Ratio 18 (6-20) Glucose Level 87 mg/dL (70-99) Calcium Level 8.8 mg/dL (8.5-10.1) Total Bilirubin 0.7 mg/dL (0.2-1.0) Aspartate Amino Transferase (AST) 44 U/L (15-37) H Alanine Aminotransferase (ALT) 30 U/L (16-63) Alkaline Phosphatase 91 U/L (46-116) Total Protein 6.7 g/dL (6.4-8.2) Albumin 3.7 g/dL (3.4-5.0) Albumin/Globulin Ratio 1.2 (1.0-1.7) Lipase 61 U/L (73-393) L Ethyl Alcohol Level < 10 mg/dL (0-10) Urine Collection Type Unknown Urine Color Yellow Urine Clarity Clear Urine pH 5.5 Urine Specific [place] >=1.030 Urine Protein Negative mg/dL (NEG-TRACE) Urine Glucose (UA) Negative mg/dL (NEG) Urine Ketones (Stick) 15 mg/dL (NEG) Urine Blood Negative (NEG) Urine Nitrite Negative (NEG) Urine Bilirubin Small (NEG) Urine Urobilinogen Dipstick 0.2 mg/dL (0.2 mg/dL) Urine Leukocyte Esterase Negative (NEG) Urine RBC 0 /HPF (0-2) Urine WBC 1-4 /HPF (0-4) Urine Squamous Epithelial Cells Mod /LPF Urine Bacteria 0 /HPF (0-FEW) Urine Hyaline Casts Moderate /HPF Urine Mucus Marked /LPF Urine Opiates Screen Neg (NEG) Urine Methadone Screen Neg (NEG) Urine Barbiturates Neg (NEG) Urine Phencyclidine Screen Neg (NEG) Urine Amphetamine/Methamphetamine Pos (NEG) Urine Benzodiazepines Screen Pos (NEG) Urine Cocaine Screen Neg (NEG) Urine Cannabinoids Screen Pos (NEG) Urine Ethyl Alcohol Neg (NEG) Laboratory Tests 04/13/19 20:42 Laboratory Tests 04/13/19 20:42 EKG EKG [] Radiology/Procedures Radiology/Procedures [] Course & Med Decision Making Course & Med Decision Making Pertinent Labs and Imaging studies reviewed. (See chart for details) Patient is suicidal. Will consult PAT for placement and get labs. Patient is agreeable. PAT agrees patient needs placed. Will attempt to find placement. Labs are unrem arkable with exception of anemia that is at baseline. The patient is also positive for amphetamines, benzo's and cannabis in his tox screen. Will turn care over to Dr. Dobbins at 0100 as social work continues to attempt placement. Rah Disclaimer Rah Disclaimer This electronic medical record was generated, in whole or in part, using a voice recognition dictation system. Departure Departure Impression: Primary Impression: Suicidal ideation Disposition: 65 XFER TO PSYCH HOSP/UNIT Referrals: NO PCP (PCP) TISHA FUENTES APRN Apr 13, 2019 20:34
[2019-04-13 20:48] LABS: BASO % 1 % (0-3); EOS # 0.2 x10^3/uL (0.0-0.7); EOS % 2 % (0-3); HEMATOCRIT 36.9 % (39.0-53.0); HEMOGLOBIN 12.6 g/dL (13.0-17.5); LYMPH # 1.7 x10^3/uL (1.0-4.8); LYMPH % 24 % (24-48); MEAN CORPUSCULAR HEMOGLOBIN 31 pg (25-35); MEAN CORPUSCULAR HGB CONC 34 g/dL (31-37); MEAN CORPUSCULAR VOLUME 90 fL (79-100); MONO # 0.8 x10^3/uL (0.0-1.1); MONO % 12 % (0-9); NEUT # 4.5 x10^3uL (1.8-7.7); NEUT % 62 % (31-73); PLATELET COUNT 209 x10^3/uL (140-400); RED BLOOD COUNT 4.12 x10^6/uL (4.30-5.70); RED CELL DISTRIBUTION WIDTH 14.7 % (11.5-14.5); WHITE BLOOD COUNT 7.3 x10^3/uL (4.0-11.0)
[2019-04-13 21:05] LABS: CALCIUM 8.8 mg/dL (8.5-10.1); CREATININE 1.3 mg/dL (0.7-1.3); GFR 58.2; POTASSIUM 3.4 mmol/L (3.5-5.1)
[2019-04-13 21:10] LABS: ALBUMIN 3.7 g/dL (3.4-5.0); ALBUMIN/GLOBULIN RATIO 1.2 (1.0-1.7); TOTAL BILIRUBIN 0.7 mg/dL (0.2-1.0); TOTAL PROTEIN 6.7 g/dL (6.4-8.2)
[2019-04-13 21:45] LABS: BILIRUBIN,URINE SMALL (NEG); CLARITY,URINE CLEAR; COLOR,URINE YELLOW; NITRITE,URINE NEGATIVE (NEG); PH,URINE 5.5; PROTEIN,URINE NEGATIVE (NEG-TRACE); UROBILINOGEN,URINE 0.2 mg/dL (0.2 mg/dL)
[2019-04-13 21:52] LABS: BARBITURATES NEG (NEG); BENZODIAZEPINES POS (NEG); CANNABINOIDS POS (NEG); COCAINE NEG (NEG); HYALINE CASTS, URINE MODERATE /HPF; METHADONE NEG (NEG); OPIATES NEG (NEG); PHENCYCLIDINE NEG (NEG); SQUAMOUS EPITHELIAL CELL,UR MOD /LPF
[2019-04-13 21:53] LABS: BACTERIA,URINE 0 /HPF (0-FEW); RBC,URINE 0 /HPF (0-2)
[2019-04-13 21:56] LABS: AMPHETAMINE/METHAMPHETAMINE POS (NEG)
[2019-04-13] MEDS ORDERED: IV NORMAL SALINE 1000ML BAG 1,000 ML IV ONE (23:00)
[2019-04-13] MEDS ORDERED: MORPHINE SULFATE 4 MG/ML VIAL. IV ONE (23:00)
[2019-04-14 03:20] VITALS: BP 158/76
== END 2019-04-14 03:40 ==
LOC: ER 19:47
DX: R45.851 Suicidal ideations (principal); G89.29 Other chronic pain; M54.9 Dorsalgia, unspecified; F41.9 Anxiety disorder, unspecified; F31.9 Bipolar disorder, unspecified; M19.90 Unspecified osteoarthritis, unspecified site; J44.9 Chronic obstructive pulmonary disease, unspecified; F17.210 Nicotine dependence, cigarettes, uncomplicated; Z88.8 Allergy status to other drugs, medicaments and biological substances
CPT/HCPCS: 36415; 80053; 80307; 81001; 83690; 85025; 96374; 99285; G0480; J2270; J7030

== ENCOUNTER 2019-08-18 20:19 | Emergency (ER) | payer MEDICAID ==
[~2019-08-18] VITALS: Ht 188 cm; Wt 92.1 kg
[~2019-08-18 20:19] MED LIST changes: +DULO20CA PO; +HYDR25TA PO; +LORA0.5T PO; +NAPR-683 PO; +QUET25TA5 PO; +TAMS0.4C97 PO
[2019-08-18 21:24] LABS: BASO % 0 % (0-3); EOS # 0.1 x10^3/uL (0.0-0.7); EOS % 2 % (0-3); HEMATOCRIT 40.7 % (39.0-53.0); HEMOGLOBIN 13.8 g/dL (13.0-17.5); LYMPH # 1.5 x10^3/uL (1.0-4.8); LYMPH % 20 % (24-48); MEAN CORPUSCULAR HEMOGLOBIN 30 pg (25-35); MEAN CORPUSCULAR HGB CONC 34 g/dL (31-37); MEAN CORPUSCULAR VOLUME 87 fL (79-100); MONO # 0.7 x10^3/uL (0.0-1.1); MONO % 9 % (0-9); NEUT # 4.9 x10^3/uL (1.8-7.7); NEUT % 68 % (31-73); PLATELET COUNT 172 x10^3/uL (140-400); RED BLOOD COUNT 4.65 x10^6/uL (4.30-5.70); RED CELL DISTRIBUTION WIDTH 15.3 % (11.5-14.5); WHITE BLOOD COUNT 7.2 x10^3/uL (4.0-11.0)
[2019-08-18 21:32] LABS: CALCIUM 8.5 mg/dL (8.5-10.1); CREATININE 0.9 mg/dL (0.7-1.3); GFR 88.6; POTASSIUM 3.5 mmol/L (3.5-5.1)
[2019-08-18 21:36] LABS: ACETAMIN < 2.0 mcg/ml (10-30)
[2019-08-18 21:37] LABS: ETHANOL < 3 mg/dL (0-10)
[2019-08-18 22:00] LABS: AMPHETAMINE/METHAMPHETAMINE POS (NEG); BARBITURATES NEG (NEG); BENZODIAZEPINES NEG (NEG); CANNABINOIDS POS (NEG); COCAINE NEG (NEG); METHADONE NEG (NEG); OPIATES NEG (NEG); PHENCYCLIDINE NEG (NEG)
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
[2019-08-19 03:32] VITALS: BP 152/89
--- NOTE | 2019-08-20 11:44 | EKG ---
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
== END 2019-08-19 03:42 ==
LOC: ER 20:19
DX: R45.851 Suicidal ideations (principal); J44.9 Chronic obstructive pulmonary disease, unspecified; F31.9 Bipolar disorder, unspecified; G89.29 Other chronic pain; Z88.8 Allergy status to other drugs, medicaments and biological substances
CPT/HCPCS: 36415; 80048; 80307; 80329; 85025; 93005; 99285; G0480

== ENCOUNTER 2019-09-29 17:25 | Emergency (ER) | payer MEDICAID ==
[~2019-09-29] VITALS: Ht 188 cm; Wt 93.0 kg
--- NOTE | 2019-09-29 17:54 | PHYS DOC ---
Past Medical History Past Medical History: Anxiety, Arthritis, Bipolar, Bronchitis, COPD, Depression, Seizure, Other Additional Past Medical Histor: manic/depression, schizo tendencies, chronic neck/back pain, TBI, PTSD,ANATOLY Past Surgical History: Other Additional Past Surgical Histo: LEFT EARDRUM,POSSIBLE HEAT STROKE Alcohol Use: Occasionally Drug Use: Marijuana, Phencyclidine Adult General Chief Complaint Chief Complaint: FOOT INJURY PAIN [facility] HPI 54-year-old male presents to the emergency department with complaints of right foot and ankle pain, no evidence of injury. He does have some swelling appreciated to lateral malleolus and tenderness appreciated to the medial aspect of his foot. Patient as well has complaints of suicidal ideation. He states he has a bed at [facility] however needs to go through the process of medical assessment. Patient has a plan of hanging himself. He states he's tried this multiple times before. Last attempt was approximately 3 years ago. She describes auditory hallucinations states he hears voices and the wind. He denies any vi sual hallucinations this time. Patient denies any chest pain, shortness breath, nausea, vomiting, abdominal pain, headache, visual change. Nothing makes symptoms worse, nothing makes symptoms better. Review of Systems Review of Systems Constitutional: Denies fever or chills [] Respiratory: Denies cough or shortness of breath [] Cardiovascular: No additional information not addressed in HPI [] GI: Denies abdominal pain, nausea, vomiting, bloody stools or diarrhea [] : Denies dysuria or hematuria [] Musculoskeletal: Right foot and ankle pain Neurologic: Denies headache, focal weakness or sensory changes [] All other systems were reviewed and found to be within normal limits, except as documented in this note. Allergies Allergies Allergies Coded Allergies Type Severity Reaction Last Updated Verified loratadine Allergy Severe Shortness of Air 01/01/19 Yes Physical Exam Physical Exam Constitutional: Well developed, well nourished, no acute distress, non-toxic appearance. [] HENT: Normocephalic, atraumatic, bilateral external ears normal, oropharynx moist, no oral exudates, nose normal. [] Eyes: PERRLA, EOMI, conjunctiva normal, no discharge. [] Cardiovascular:Heart rate regular rhythm, no murmur [] Lungs & Thorax: Bilateral breath sounds clear to auscultation [] Abdomen: Bowel sounds normal, soft, no tenderness, no masses, no pulsatile masses. [] Skin: Warm, dry, no erythema, no rash. [] Back: No tenderness, no CVA tenderness. [] Extremities: Tenderness to right lateral malleolus, he does have tenderness as well to the medial aspect of his foot, no evidence of injury per the patient, swelling appreciated compared to the left normal range of motion masses appreciated bilaterally[] Neurologic: Alert and oriented X 3, no focal deficits noted. [] Psychologic: Affect normal, judgement normal, mood normal. [] Current Patient Data Vital Signs Vital Signs Date Time Temp Pulse Resp B/P (MAP) Pulse Ox O2 Delivery O2 Flow Rate FiO2 09/29/19 18:41 88 16 129/73 (91) 98 Room Air 09/29/19 17:44 97.3 97.3 Lab Values Laboratory Tests Test 09/29/19 17:50 09/29/19 19:50 White Blood Count 10.6 x10^3/uL (4.0-11.0) Red Blood Count 4.85 x10^6/uL (4.30-5.70) Hemoglobin 14.3 g/dL (13.0-17.5) Hematocrit 41.8 % (39.0-53.0) Mean Corpuscular Volume 86 fL (79-100) Mean Corpuscular Hemoglobin 30 pg (25-35) Mean Corpuscular Hemoglobin Concent 34 g/dL (31-37) Red Cell Distribution Width 15.3 % (11.5-14.5) H Platelet Count 218 x10^3/uL (140-400) Neutrophils (%) (Auto) 79 % (31-73) H Lymphocytes (%) (Auto) 13 % (24-48) L Monocytes (%) (Auto) 7 % (0-9) Eosinophils (%) (Auto) 1 % (0-3) Basophils (%) (Auto) 0 % (0-3) Neutrophils # (Auto) 8.4 x10^3/uL (1.8-7.7) H Lymphocytes # (Auto) 1.3 x10^3/uL (1.0-4.8) Monocytes # (Auto) 0.7 x10^3/uL (0.0-1.1) Eosinophils # (Auto) 0.1 x10^3/uL (0.0-0.7) Basophils # (Auto) 0.0 x10^3/uL (0.0-0.2) Sodium Level 139 mmol/L (136-145) Potassium Level 3.8 mmol/L (3.5-5.1) Chloride Level 101 mmol/L (98-107) Carbon Dioxide Level 28 mmol/L (21-32) Anion Gap 10 (6-14) Blood Urea Nitrogen 15 mg/dL (8-26) Creatinine 1.4 mg/dL (0.7-1.3) H Estimated GFR (Cockcroft-Gault) 53.2 BUN/Creatinine Ratio 11 (6-20) Glucose Level 157 mg/dL (70-99) H Calcium Level 8.7 mg/dL (8.5-10.1) Total Bilirubin 0.7 mg/dL (0.2-1.0) Aspartate Amino Transferase (AST) 17 U/L (15-37) Alanine Aminotransferase (ALT) 12 U/L (16-63) L Alkaline Phosphatase 105 U/L (46-116) Total Protein 6.9 g/dL (6.4-8.2) Albumin 3.8 g/dL (3.4-5.0) Albumin/Globulin Ratio 1.2 (1.0-1.7) Salicylates Level 3.6 mg/dL (2.8-20.0) Salicylate Last Dose Date Unk Salicylate Last Dose Time Unk Acetaminophen Level < 2 mcg/ml (10-30) L Acetaminophen Last Dose Date Unk Acetaminophen Last Dose Time Unk Ethyl Alcohol Level < 10 mg/dL (0-10) Urine Opiates Screen Neg (NEG) Urine Methadone Screen Neg (NEG) Urine Barbiturates Neg (NEG) Urine Phencyclidine Screen Neg (NEG) Urine Amphetamine/Methamphetamine Pos (NEG) Urine Benzodiazepines Screen Neg (NEG) Urine Cocaine Screen Pos (NEG) Urine Cannabinoids Screen Pos (NEG) Urine Ethyl Alcohol Neg (NEG) Laboratory Tests 09/29/19 17:50 Laboratory Tests 09/29/19 17:50 EKG EKG [] Radiology/Procedures Radiology/Procedures [facility] [address] [place] [address] IMAGING REPORT Signed PATIENT: INGRID PEGUERO LACCOUNT: [id number] : 1965 LOCATION: ER AGE: 54 SEX: M EXAM STATUS: REG ER ORD. PHYSICIAN: EDIN VALENTIN MD REASON: swelling/pain, no known injury PROCEDURE: ANKLE RIGHT 2V FOOT RIGHT 2V, ANKLE RIGHT 2V DATE: 09/29/2019 5:58 PM INDICATION: Ankle and foot pain COMPARISON: None. FINDINGS: Bones: There is no evidence of acute fracture or dislocation. Chronic appearing ossific densities along the medial malleolus may relate to remote injury. Posterior and plantar calcaneal enthesophytes. Joints: The ankle mortise is congruent. No widening of the distal tibiofibular syndesmosis. Moderate degenerative changes of the ankle joint. Mild degenerative changes of the first MTP joint and midfoot. Miscellaneous: None. IMPRESSION: No evidence of acute ankle or foot fracture. Moderate degenerative changes of the ankle, mild degenerative changes throughout the foot. Electronically signed by: Jamila Jamison MD (09/29/2019 8:19 PM) [facility] DICTATED and SIGNED BY: JAMILA JAMISON MD DATE: 09/29/192018 [] Course & Med Decision Making Course & Med Decision Making Pertinent Labs and Imaging studies reviewed. (See chart for details) []54-year-old male presents to the emergency department with complaints of right foot and ankle pain, no evidence of injury. He does have some swelling appreciated to lateral malleolus and tenderness appreciated to the medial aspect of his foot. Patient as well has complaints of suicidal ideation. He states he has a bed at [facility] however needs to go through the process of medical assessment. Patient has a plan of hanging himself. He states he's tried this multiple times before. Last attempt was approximately 3 years ago. She describes auditory hallucinations states he hears voices and the wind. He denies any visual hallucinations this time. Patient denies any chest pain, shortness breath, nausea, vomiting, abdominal pain, headache, visual change. Nothing makes symptoms worse, nothing makes symptoms better. Labs, imaging reviewed (no fracture) UDS positive for amphetamines, cocaine, THC Patient has a history of coronary artery disease however has no acute complaints of chest pain at this time. Given patient being asymptomatic cardiac workup is unnecessary at this time. Patient has a remote history of fall approximately one month ago - he states he has had some memory deficit. At this time given patient's fall was approximately one month ago head CT is not appropriate this time. Patient is medically clear for discharge to psychiatric facility. His other complaints are chronic problems and should be worked up as an outpatient. Dragon Disclaimer Dragon Disclaimer This electronic medical record was generated, in whole or in part, using a voice recognition dictation system. Departure Departure Impression: Primary Impression: Suicidal ideation Additional Impression: Foot pain, right Condition: STABLE Referrals: JOEY BERUMEN MD (PCP) Patient Instructions: Fall Prevention and Home Safety, [id number], Foot Contusion, Suicidal Feelings, How to Help Yourself Additional Instructions: Recommend follow up with PCP 3 - 5 days Return to the ER with worsening symptoms, intractable pain, fever, altered mental status Tylenol/Motrin as needed for pain Problem Qualifiers EDIN VALENTIN MD Sep 29, 2019 17:54
[2019-09-29 18:12] LABS: ACETAMIN < 2 mcg/ml (10-30); ETHANOL < 10 mg/dL (0-10); SALIC 3.6 mg/dL (2.8-20.0)
[2019-09-29 20:01] LABS: BASO % 0 % (0-3); EOS # 0.1 x10^3/uL (0.0-0.7); EOS % 1 % (0-3); HEMATOCRIT 41.8 % (39.0-53.0); HEMOGLOBIN 14.3 g/dL (13.0-17.5); LYMPH # 1.3 x10^3/uL (1.0-4.8); LYMPH % 13 % (24-48); MEAN CORPUSCULAR HEMOGLOBIN 30 pg (25-35); MEAN CORPUSCULAR HGB CONC 34 g/dL (31-37); MEAN CORPUSCULAR VOLUME 86 fL (79-100); MONO # 0.7 x10^3/uL (0.0-1.1); MONO % 7 % (0-9); NEUT # 8.4 x10^3/uL (1.8-7.7); NEUT % 79 % (31-73); PLATELET COUNT 218 x10^3/uL (140-400); RED BLOOD COUNT 4.85 x10^6/uL (4.30-5.70); RED CELL DISTRIBUTION WIDTH 15.3 % (11.5-14.5); WHITE BLOOD COUNT 10.6 x10^3/uL (4.0-11.0)
[2019-09-29 20:09] LABS: CALCIUM 8.7 mg/dL (8.5-10.1); CREATININE 1.4 mg/dL (0.7-1.3); GFR 53.2; POTASSIUM 3.8 mmol/L (3.5-5.1)
[2019-09-29 20:09] LABS: BARBITURATES NEG (NEG); BENZODIAZEPINES NEG (NEG); CANNABINOIDS POS (NEG); COCAINE POS (NEG); METHADONE NEG (NEG); OPIATES NEG (NEG); PHENCYCLIDINE NEG (NEG)
[2019-09-29 20:10] LABS: AMPHETAMINE/METHAMPHETAMINE POS (NEG)
[2019-09-29 20:16] LABS: ALBUMIN 3.8 g/dL (3.4-5.0); ALBUMIN/GLOBULIN RATIO 1.2 (1.0-1.7); TOTAL BILIRUBIN 0.7 mg/dL (0.2-1.0); TOTAL PROTEIN 6.9 g/dL (6.4-8.2)
--- NOTE | 2019-09-29 20:22 | RAD ---
FOOT RIGHT 2V, ANKLE RIGHT 2V DATE: 09/29/2019 5:58 PM INDICATION: Ankle and foot pain COMPARISON: None. FINDINGS: Bones: There is no evidence of acute fracture or dislocation. Chronic appearing ossific densities along the medial malleolus may relate to remote injury. Posterior and plantar calcaneal enthesophytes. Joints: The ankle mortise is congruent. No widening of the distal tibiofibular syndesmosis. Moderate degenerative changes of the ankle joint. Mild degenerative changes of the first MTP joint and midfoot. Miscellaneous: None. IMPRESSION: No evidence of acute ankle or foot fracture. Moderate degenerative changes of the ankle, mild degenerative changes throughout the foot. Electronically signed by: Roman Jamison MD (09/29/2019 8:19 PM) [facility]
[2019-09-29 23:41] VITALS: BP 145/91
== END 2019-09-30 ==
LOC: ER 17:25
DX: M25.571 Pain in right ankle and joints of right foot (principal); R45.851 Suicidal ideations; R44.0 Auditory hallucinations; J44.9 Chronic obstructive pulmonary disease, unspecified; F31.9 Bipolar disorder, unspecified; F43.10 Post-traumatic stress disorder, unspecified; Z87.820 Personal history of traumatic brain injury; Z88.8 Allergy status to other drugs, medicaments and biological substances
CPT/HCPCS: 36415; 73600; 73620; 80053; 80307; 80329; 85025; 99285; G0480

== ENCOUNTER → 2020-06-11 | Outpatient (CLI) | payer MEDICAID ==
--- NOTE | 2020-06-11 14:56 | RAD ---
CERVICAL SPINE WO CONTRAST DATE: 06/11/2020 1:00 PM INDICATION: cervical disc disorder with radiculopathy R>L TECHNIQUE: Multiplanar multisequence magnetic resonance imaging of the cervical spine was performed without administration of intravenous contrast using the standard cervical spine protocol. COMPARISON: CT 04/01/2019. FINDINGS: Straightening of the cervical lordosis. No acute fracture. Moderate multilevel degenerative disc desiccation and disc height loss. The spinal cord is normal in signal intensity. On the limited views of the cranial cavity and brain, the cerebellum and renetta have normal morphology and signal characteristics. No Chiari malformation. No soft tissue abnormality. Normal signal voids are present in the vertebral arteries. C2-3: Disc osteophyte complex with annular tear. Uncovertebral hypertrophy. Moderate facet arthropathy. Mild bilateral neural foraminal narrowing. Mild spinal canal stenosis. C3-4: Disc osteophyte complex. Uncovertebral hypertrophy. Severe right and moderate left facet arthropathy. Moderate bilateral neural foraminal narrowing. Moderate spinal canal stenosis. C4-5: Disc osteophyte complex. Uncovertebral hypertrophy. Mild left facet arthropathy. Severe bilateral neural foraminal narrowing. Moderate spinal canal stenosis. C5-6: Disc osteophyte complex. Uncovertebral hypertrophy. Moderate bilateral neural foraminal narrowing. Moderate spinal canal stenosis. C6-7: Disc osteophyte complex. Uncovertebral hypertrophy. Moderate right and severe left neural foraminal narrowing. Mild spinal canal stenosis. C7-T1: Mild right facet arthropathy. No significant spinal canal stenosis or neural foraminal narrowing. IMPRESSION: Advanced cervical spondylosis, detailed level by level above. No severe spinal canal stenosis. Multilevel severe neural foraminal narrowing. Electronically signed by: Roman Jamison MD (06/11/2020 2:54 PM) [id number]
== END | disposition home or self-care (01) ==
LOC: MRI 13:17
PROVIDERS: ATTEND Family Medicine
DX: M48.02 Spinal stenosis, cervical region (principal); M47.23 Other spondylosis with radiculopathy, cervicothoracic region; M40.50 Lordosis, unspecified, site unspecified; M25.78 Osteophyte, vertebrae
CPT/HCPCS: 72141

== ENCOUNTER 2020-07-24 07:25 | Emergency (ER) | payer MEDICAID ==
[~2020-07-24] VITALS: Ht 188 cm; Wt 82.0 kg
[2020-07-24 07:49] VITALS: BP 171/89
--- NOTE | 2020-07-24 07:55 | PHYS DOC ---
Past Medical History Past Medical History: Anxiety, Arthritis, Bipolar, Bronchitis, COPD, Depr ession, Seizure, Other Additional Past Medical Histor: manic/depression, schizo tendencies, chronic neck/back pain, TBI, PTSD,ANATOLY Past Surgical History: Other Additional Past Surgical Histo: LEFT EARDRUM,POSSIBLE HEAT STROKE Smoking Status: Current Every Day Smoker Alcohol Use: Occasionally Drug Use: Marijuana, Phencyclidine General Adult EDM: Chief Complaint: NECK PAIN HPI: HPI: 55-year-old male past medical history bipolar disorder, hyperlipidemia, anxiety and BPH with history of chronic neck pain, presents the ED with complaints of right sided nonradiating "sharp stabbing and burning" neck pain x 2 months, no relief with smoking marijuana, Tylenol #3s, oxycodone 5 mg and Motrin. Patient states "pain is coming from underneath my neck and ongoing under my eye, it is intolerable, same stuff as before but getting worse." Patient also requesting medication refill, ran out of all of his home medications. Patient reports he had an MRI with his primary care physician Dr. Mcintosh in June. EMR was reviewed and patient's MRI from June [id number] shows advanced cervical spondylosis with multilevel severe neural foraminal narrowing, no canal stenosis. Does report meth use in the past 24 hours. Denies any drug overdose or SI thoughts/plans. Review of Systems: Review of Systems: Constitutional: Denies fever or chills. [] Eyes: Denies change in visual acuity. [] HENT: Denies nasal congestion or sore throat. [] Respiratory: Denies cough or shortness of breath, hemoptysis Cardiovascular: Denies chest pain/pressure or edema. [] GI: Denies abdominal pain, nausea, vomiting, bloody stools or diarrhea. [] : Denies dysuria. [] Musculoskeletal: Denies back pain or joint pain. [] Integument: Denies rash. [] Neurologic: Denies headache, focal weakness or sensory changes. [] Endocrine: Denies polyuria or polydipsia. [] Lymphatic: Denies swollen glands. [] Psychiatric: Denies depression or anxiety, SI or HI Heart Score: Risk Factors: Risk Factors: DM, Current or recent (<one month) smoker, HTN, HLP, family history of CAD, obesity. Risk Scores: Score 0 - 3: 2.5% MACE over next 6 weeks - Discharge Home Score 4 - 6: 20.3% MACE over next 6 weeks - Admit for Clinical Observation Score 7 - 10: 72.7% MACE over next 6 weeks - Early Invasive Strategies Allergies: Allergies: Allergies Coded Allergies Type Severity Reaction Last Updated Verified loratadine Allergy Severe Shortness of Air 01/01/19 Yes Physical Exam: PE: Constitutional: Well developed, well nourished, no acute distress, non-toxic appearance. [] HENT: Normocephalic, atraumatic, bilateral external ears normal, oropharynx moist, no oral exudates, nose normal, no nuchal rigidity, no meningismus Eyes: EOMI, conjunctiva normal, no discharge. [] Neck: Normal range of motion, no tenderness, supple, no stridor. [] Cardiovascular:Heart rate regular rhythm, no murmur [] Lungs & Thorax: Bilateral breath sounds clear to auscultation [] Abdomen: Bowel sounds normal, soft, no tenderness, no masses, no pulsatile mass es. [] Skin: Warm, dry, no erythema, no rash. [] Back: No tenderness, no CVA tenderness. [] Extremities: No tenderness, no cyanosis, no clubbing, ROM intact, no edema. [] Neurologic: Alert and oriented X 3, normal motor function, normal sensory function, no focal deficits noted, steady gait, cranial nerves II through XII intact Psychologic: Affect normal, judgement normal, mood normal, rapid speech - energetic and slightly anxious (suspect meth intoxication) EKG: EKG: [] Radiology/Procedures: Radiology/Procedures: [] Course & Med Decision Making: Course & Med Decision Making Pertinent Labs and Imaging studies reviewed. (See chart for details) Concern for atraumatic osteoarthritis of the cervical spine with severe neural foraminal stenosis in the absence of any neurologic deficits, weakness or paralysis. Patient afebrile. Pt with asymptomatic hypertension and mild tachycardia in the setting of recent meth use. Pt denies any SI, HI, chest pain or dypsnea, no known renal disease. Will tx conservatively. No indication for further imaging at this time given no new trauma and symptoms have been chronic. Strict ED return precautions were given for SI or HI, chest pain, neurologic deficits, dyspnea or confusion. Encouraged urgent outpatient follow-up with PMD and neurosurgery. Life-threatening processes were considered but are low suspicion at this time, given history and physical exam. Pt was educated on all prescription medications and adverse effects. All patient's questions were answered and pt was stable at time of discharge. Differential includes paty's angina, peritonsillar abscess, retropharyngeal abscess, epiglottitis, bacterial tracheitis, uvulitis, sepsis, mastoiditis, tr aumatic injury, carotid/vertebral dissection, intracranial aneurysms or neurologic process. I spoken with the patient and her caregivers. I explained the patient's condition, diagnoses and treatment plan based on the information available to me at this time. I have answered the patient and her caregiver's questions and addressed any concerns. The patient and her caregivers have a good understanding of patient's diagnosis, condition and treatment plan as can be expected at this point. Vital signs have been stable. Patient's condition is stable and appropriate for discharge from the emergency department. Patient will pursue further outpatient evaluation with primary care physician or other designated or consulting physician as outlined in the discharge instructions. The patient and/or caregivers are agreeable to this plan of care and follow-up instructions have been explained in detail. The patient and/or caregivers have received these instructions in written form and have expressed an understanding of the discharge instructions. The patient and/or caregivers are aware that any significant change of condition or worsening of symptoms should prompt immediate return to this or the closest emergency department or call to 911. Rah Disclaimer: Rah Disclaimer: This electronic medical record was generated, in whole or in part, using a voice recognition dictation system. Departure Departure Impression: Primary Impression: Cervical spondylosis Additional Impressions: Neural foraminal stenosis of cervical spine Neck pain on right side Disposition: 01 HOME, SELF-CARE Condition: STABLE Referrals: JOEY BERUMEN MD (PCP) followup today for medication refills Patient Instructions: Pain, Neuropathic, Spondylolysis with [facility] Additional Instructions: Julián Toney MD in 1-2 weeks [facility] Address: [address] [facility] [place] [address] [address] Scripts Lidocaine (Lido Primitivo) 1 Each Adh..patch 1 EACH TP DAILY for pain for 4 Days, #4 PATCH Prov: HOA ORTEGA DO 07/24/20 Ibuprofen (IBUPROFEN) 600 Mg Tablet 600 MG PO PRN Q6HRS PRN for PAIN, #20 TAB take with food or milk Prov: HOA ORTEGA DO 07/24/20 Gabapentin (GABAPENTIN ) 300 Mg Capsule 300 MG PO TID for NEUROGENIC PAIN for 7 Days, #21 CAP Prov: HOA ORTEGA DO 07/24/20 Justicifation of Admission Dx: Justifications for Admission: Justification of Admission Dx: N/A HOA ORTEGA DO Jul 24, 2020 07:55
[2020-07-24] MEDS ORDERED: GABA300C18 PO (08:10)
[2020-07-24] MEDS ORDERED: IBUP-1007 PO (08:10)
[2020-07-24] MEDS ORDERED: LIDO1ADH78 TP (08:10)
[2020-07-24] MEDS ORDERED: GABAPENTIN 400 MG CAPSULE. PO SCH (08:15)
[2020-07-24] MEDS ORDERED: GABAPENTIN 300 MG CAPSULE. PO ONE (08:45)
[2020-07-24] MEDS ORDERED: LIDOCAINE (700MG/PATCH) PATCH. TD SCH (09:00)
== END 2020-07-24 08:47 | disposition home or self-care (01) ==
LOC: ER 07:25
DX: M47.892 Other spondylosis, cervical region (principal); M48.02 Spinal stenosis, cervical region; M54.2 Cervicalgia; F41.9 Anxiety disorder, unspecified; M19.90 Unspecified osteoarthritis, unspecified site; F32.9 Major depressive disorder, single episode, unspecified; J44.9 Chronic obstructive pulmonary disease, unspecified; F17.200 Nicotine dependence, unspecified, uncomplicated; F12.90 Cannabis use, unspecified, uncomplicated; G89.29 Other chronic pain; F19.90 Other psychoactive substance use, unspecified, uncomplicated; Z98.890 Other specified postprocedural states
CPT/HCPCS: 99283

== ENCOUNTER 2021-05-28 15:00 | Emergency (ER) | payer MEDICAID ==
[~2021-05-28] VITALS: Ht 188 cm; Wt 115.0 kg
[~2021-05-28 15:00] MED LIST changes: +GABA300C18 PO; +IBUP-1007 PO; +LIDO1ADH78 TP; +METH-562 PO; -METH750T2 PO; +NAPR-699 PO; -NAPR250T6 PO
[2021-05-28 16:00] VITALS: BP 131/79
[2021-05-28 16:59] LABS: BILIRUBIN,URINE NEGATIVE (NEG); CLARITY,URINE CLEAR; COLOR,URINE YELLOW; NITRITE,URINE NEGATIVE (NEG); PH,URINE 6.5 (<5.0-8.0); PROTEIN,URINE NEGATIVE (NEG-TRACE); UROBILINOGEN,URINE 0.2 mg/dL (0.2 mg/dL)
[2021-05-28 17:14] LABS: BACTERIA,URINE 0 /HPF (0-FEW); RBC,URINE OCC /HPF (0-2); WBC,URINE 0 /HPF (0-4)
== END 2021-05-28 18:14 | disposition left against medical advice (07) ==
LOC: ER 15:00
DX: R33.9 Retention of urine, unspecified (principal); Z53.21 Procedure and treatment not carried out due to patient leaving prior to being seen by health care provider
CPT/HCPCS: 81001